=== PATIENT | female | born 1955 | race African-American/Black ===

== ENCOUNTER 2017-01-21 05:47 | Emergency (ER) | payer OTHER ==
--- NOTE | ~2017-01-21 | EKG ---
PATIENT: CECY PETE UNIT #: [id number] Ventricular Rate: 79 BPM Atrial Rate: 79 BPM P-R Interval: 140 ms QRS Duration: 92 ms Q-T Interval: 392 ms QTC Calculation(Bezet): 449 ms P [place]: 57 degrees Calculated R [place]: -36 degrees Calculated T [place]: 105 degrees Diagnosis Line: Normal sinus rhythm Diagnosis Line: Left axis deviation Diagnosis Line: T wave abnormality, consider lateral ischemia Diagnosis Line: Abnormal ECG Diagnosis Line: When compared with ECG of 24-APR-2014 20:48, Diagnosis Line: Criteria for Inferior infarct are no longer Diagnosis Line: Present Diagnosis Line: Confirmed by ANDREEA BORREGO MD ([id number]) on 01/22/2017 Diagnosis Line: 7:04:17 PM INTERPRETING MD: ELMO JEFF
--- NOTE | ~2017-01-21 | CR150 ---
[facility] A Service of [facility] & [facility] RADIOLOGY TEXT RESULTS PATIENT: CECY PETE LOCATION: [facility] : 59 UNIT #: [id number] AGE: [address]: Tino Thomas MD SEX: F ORDER DR: [id number] [facility] [address] [place], [place] [address] [id number] E MR#: [id number] Acc #: [id number] NAME: CECY PETE : 1955 SEX: F STUDY DATE/TIME: 01/21/2017 5:32 UNIT: [facility] ROOM: STUDY DESCRIPTION: CR Hip Min 2 Views Lt Attending Physician: Tino Thomas M.D. Ordering Physician: Tino Thomas M.D. Primary Care Physician: Primary Care Physician No MEDICAL IMAGING REPORT This report is preliminary unless electronic signature is present EXAM Left hip. INDICATIONS Fall 3 days ago with pain. FINDINGS An AP view of the pelvis and an AP and lateral view of the left hip were obtained. No fracture is identified. Bones are normal. IMPRESSION Normal left hip. Dictated by... Moi Barraza M.D. THIS IS AN ELECTRONICALLY VERIFIED REPORT Moi Barraza M.D. at 01/21/2017 1:13 PM Brook TD: 01/21/2017 07:25 JOB #: [id number] MEDICAL IMAGING REPORT Page 1 of 1 COPY
--- NOTE | ~2017-01-21 | CR169 ---
[facility] A Service of [facility] & [facility] RADIOLOGY TEXT RESULTS PATIENT: CECY PETE LOCATION: [place] : 59 UNIT #: [id number] AGE: [address]: Tino Thomas MD SEX: F ORDER DR: [id number] [facility] [address] [place], [place] [address] [id number] E MR#: [id number] Acc #: [id number] NAME: CECY PETE : 1955 SEX: F STUDY DATE/TIME: 01/21/2017 5:30 UNIT: [place] ROOM: STUDY DESCRIPTION: CR Knee 2 Views Lt Attending Physician: Tino Thomas M.D. Ordering Physician: Tino Thomas M.D. Primary Care Physician: Primary Care Physician No MEDICAL IMAGING REPORT This report is preliminary unless electronic signature is present EXAM Left knee HISTORY Left knee pain after falling three days ago. COMPARISON: 06/08/15 FINDINGS AP and lateral vies of the left knee were obtained. There is a transverse fracture through the mid patella and there is a joint effusion present. The bones are normal. IMPRESSION 1. Slightly displaced transverse mid patella fracture. 2. Joint effusion. Dictated by... Moi Barraza M.D. THIS IS AN ELECTRONICALLY VERIFIED REPORT Moi Barraza M.D. at 01/21/2017 1:13 PM ANDRÉS/brandon TD: 01/21/2017 07:24 JOB #: [id number] MEDICAL IMAGING REPORT Page 1 of 1 COPY
[~2017-01-21 05:47] MED LIST: ACCUNEB0.21 MG/ML; ACETAMINOPHEN PO; ADVAIR 250-501 EAC1; ASPIRIN PO; BACTRIM DS TABL1 TAB PO; COLACE PO; DARVOCET-N 1001 TAB PO; DOC-Q-LACE PO; FLEXERIL10 MG PO; INSULIN 70/30 SUBQ; KEFLEX PO; LEVEMIR100 UNITS/ SUBQ; LISINOPRIL PO; LOPRESSOR PO; LORTAB 10/500 T1 TAB PO; LYRICA PO; NEURONTIN PO; NORCO 5/325 TAB1 TAB PO; NORVASC PO; REGLAN PO; REQUIP1 MG PO; SENNA S TABLET1 TAB PO; SYNTHROID PO; SYNTHROID0.05 MG PO; TYLOX 5/500 CAP1 CAP PO; VISTARIL PO; VOLTAREN50 MG PO; XALATAN OP; [UNRECOGNIZED DRUG - OTHER] PO; [UNRECOGNIZED DRUG - OTHER] SUBQ
== END 2017-01-21 07:23 | disposition home or self-care (01) ==
LOC: CED 05:47
DX: S82.032A Displaced transverse fracture of left patella, initial encounter for closed fracture (principal); Z88.6 Allergy status to analgesic agent; Z88.1 Allergy status to other antibiotic agents; Z79.899 Other long term (current) drug therapy; Z79.4 Long term (current) use of insulin; W01.0XXA Fall on same level from slipping, tripping and stumbling without subsequent striking against object, initial encounter; Y92.002 Bathroom of unspecified non-institutional (private) residence as the place of occurrence of the external cause
CPT/HCPCS: 29505; 73502; 73560; 82947; 93005; 96372; 99284; J2270

== ENCOUNTER 2017-01-23 18:25 | Inpatient (IN) | payer OTHER ==
--- NOTE | ~2017-01-23 | HP ---
Unit #: [id number] #: [id number] Patient: [id number] [facility]. [place], [place] [address] [id number] MR#: [id number] NAME: KING FEBRUARY ROOM: 465 Age: 61 Sex: F Admission Date: 01/23/2017 : 1955 Attending Physician: Susan Chavez M.D. Primary Care Physician: No Primary Care Physician HISTORY AND PHYSICAL CHIEF COMPLAINT Dyspnea, acute kidney injury, hyperkalemia. HISTORY OF PRESENT ILLNESS This 61-year-old, type 2 diabetic female with hypertension was transferred from [facility] [place] [facility] department for hyperkalemia and shortness of breath. The patient states that she slipped and fractured her knee four days ago and was seen in this emergency department and was diagnosed with a left slightly displaced transverse mid patellar fracture. She was given a knee brace until the followup with the orthopaedic surgeon, notes shortness of breath over the past three days and went to [facility] [place] [facility] emergency department where labs demonstrate acute versus chronic kidney disease along with hyperkalemia and lisinopril. She was given 15 g of Kayexalate, 40 IV of Lasix, calcium gluconate, sodium bicarb, 10 IV of insulin after an amp of D50. She was also given a DuoNeb. She was given 4 mg of morphine. She was sent to this facility for further workup and treatment. A D-dimer was elevated. Chest x-ray just shows mild cardiomegaly. PAST MEDICAL HISTORY 1. Hypertension. 2. IDDM with neuropathy. 3. History of hypothyroidism in the past. 4. Negative cardiac catheterization 2008. 5. Previous TIA. 6. Fibromyalgia. 7. COPD. 8. Cholecystectomy. 9. . 10. 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 SOCIAL HISTORY The patient lives with her daughter. She smokes about a quarter to a half pack per day. She does not drink alcohol. FAMILY HISTORY Diabetes, CVA, hypertension, CAD. ALLERGIES Ultram and Levaquin. HOME MEDICATIONS Unit #: [id number] #: [id number] Patient: 1. Levemir 20 units subcu q.h.s. 2. Synthroid 0.05 mg daily. 3. Lopressor 100 mg b.i.d. 4. Lisinopril 10 mg b.i.d. REVIEW OF SYSTEMS Somewhat difficult to obtain as the patient is in quite a bit of discomfort and I am having difficulty getting the patient to answer my questions completely. PHYSICAL EXAMINATION GENERAL APPEARANCE: A 61-year-old mildly obese female currently somewhat uncomfortable because of leg pain. VITAL SIGNS: Temperature 98.1. Pulse 88. Respirations 24. Blood pressure 185/85. O2 saturation is 99% on room air. HEENT: Eyes: PERRLA. Extraocular muscles are intact. Mild exophthalmus noted. Pharynx is benign. NECK: Supple without adenopathy or thyromegaly. CHEST: Clear. CARDIAC: Normal S1, S2 without S3, S4 or murmur. ABDOMEN: Bowel sounds are present. No hepatosplenomegaly, tenderness or masses. EXTREMITIES: There is a left knee immobilizer in place. No pedal edema. Pedal pulses are present but diminished. NEUROLOGIC: The patient is awake, alert, oriented. Cranial nerves are intact. Equal strength throughout. DIAGNOSTIC STUDIES LABORATORY: Hematocrit 27.7. Normal MCV, white count and platelet count. INR is one. D-dimer is 460. SMA-12: Glucose 118, BUN 30, creatinine 1.8, CO2 21, albumin 2.9, alkaline phosphatase 105. Lactic acid is normal. BNP is modestly elevated. IMAGING: Chest x-ray: No acute disease. CARDIOVASCULAR: EKG shows a sinus rhythm, rate 78 with somewhat poor R wave progression noted. T wave inversions I and aVL. ASSESSMENT 1. Dyspnea. Rule out PE. 2. Acute versus chronic kidney disease with hyperkalemia and lisinopril. The patient did take one Ibuprofen a few days ago. 3. Normocytic anemia. The patient denies any issues with GI bleeding. 4. Hypertension. 5. Recent left patellar fracture. 6. History of hypothyroidism. 7. Diabetes mellitus. PLAN 1. V/Q scan. One therapeutic dose of Lovenox pending V/Q scan. 2. Obtain urinalysis. 3. IV fluids. 4. Recheck labs. 5. Orthopaedic surgeon to see. 6. Pain control. 7. Obtain TSH. 8. Discontinue lisinopril. 9. Anemia workup. Unit #: [id number] #: [id number] Patient: CECY PETE Dictated by Mariela Fernández M.D. AML/bd TD: 01/24/2017 06:46 JOB #: [id number] HISTORY AND PHYSICAL Page 1 of 1 X Mariela Fernández MD X HISTORY AND PHYSICAL
--- NOTE | ~2017-01-23 | CT57 ---
[facility] A Service of [facility] RADIOLOGY TEXT RESULTS PATIENT: KINGFEBRUARY LOCATION: [facility] 465 : 59 UNIT #: [id number] AGE: [address]: Yuniel Calix MD SEX: F ORDER DR: [id number] [facility] [address] [place], [place] [address] [id number] I MR#: [id number] Acc #: [id number] NAME: KING FEBRUARY : 1955 SEX: F STUDY DATE/TIME: 01/24/2017 18:34 UNIT: [facility] ROOM: [facility] STUDY DESCRIPTION: CT Chest Wo Cont Attending Physician: Lavelle Rose M.D. Ordering Physician: Tommy Cherry M.D. Primary Care Physician: No Primary Care Physician MEDICAL IMAGING REPORT This report is preliminary unless electronic signature is present EXAM CT chest without contrast. INDICATIONS Shortness of air for the past 2 days with hyperkalemia. PROCEDURE Unenhanced CT of the chest. COMPARISON 12/20/2007 TECHNIQUE NOTE: This CT exam was performed with one or more of the following radiation dose reduction techniques: automatic exposure control, adjustment of mA and/or kV according to patient size, and iterative reconstruction. FINDINGS No dense consolidation. There is atelectasis in both lung bases. There is a small area of ground-glass opacity in the right lower lobe, that measures 1.5 cm. No pneumothorax. Prominent bilateral axillary lymph nodes are similar to the previous study. An index right axillary node measures 1.5 cm and is unchanged. No acute findings in the included upper abdomen. No aggressive-appearing bone lesion. IMPRESSION No definite acute findings. No dense consolidation. Bibasilar atelectasis. 1.5 cm area of ground-glass opacity right lower lobe is nonspecific but is new since 2007. It could represent an area of infectious or inflammatory [facility] A Service of [facility] & [facility] RADIOLOGY TEXT RESULTS PATIENT: LOCATION: [facility] : 59 UNIT #: [id number] AGE: [address]: Yuniel Calix MD SEX: F ORDER DR: change. Bilateral prominent axillary lymph nodes are similar to the prior study. Dictated by... Jose Angel Fountain M.D. THIS IS AN ELECTRONICALLY VERIFIED REPORT Jose Angel Fountain M.D. at 01/27/2017 9:45 AM MEGA/kinsey TD: 01/24/2017 21:22 JOB #: [id number] MEDICAL IMAGING REPORT Page 1 of 1 COPY
--- NOTE | ~2017-01-23 | CO ---
Unit #: [id number] #: [id number] Patient: [id number] [address] [place], [place] [address] [id number] I MR#: [id number] NAME: CECY PETE ROOM: 465 Age: 61 Sex: F Admission Date: 01/23/2017 : 1955 Attending Physician: Lavelle Rose M.D. Primary Care Physician: Primary Care Physician No CONSULTATION REPORT REASON FOR CONSULTATION Shortness of breath. HISTORY OF PRESENT ILLNESS This 61-year-old female with past medical history of type 2 diabetes, likely COPD, transferred from [facility] with the complaint of shortness of breath, slipped and fractured her patella and has been complaining of shortness of breath, admitted with impression of possible dyspnea to rule out PE. VQ scan is negative. She has acute kidney injury. I am seeing the patient at bedside. She denies any nausea, vomiting or diarrhea. Mild shortness of breath. Active smoker of one pack per day. Denies alcohol or drug abuse. PAST MEDICAL HISTORY 1. Hypertension. 2. Diabetes mellitus. 3. Hypothyroidism. 4. TIA. 5. Fibromyalgia. 6. COPD. 7. Cholecystectomy. 8. . 9. Ovarian tumor. HOME MEDICATIONS As per DEC and has been reviewed. ALLERGIES 1. Ultram. 2. Levaquin. SOCIAL HISTORY Half to one-pack smoker per day. Denies alcohol or drug abuse. FAMILY HISTORY Diabetes, CVA, hypertension, coronary artery disease. PHYSICAL EXAMINATION VITAL SIGNS: Temperature 98, pulse 67, respirations 12, blood pressure 130/70. NEUROLOGIC: Awake, alert, oriented. No neurologic deficits. HEENT: PERRLA. EOMI. NECK: Supple, no JVD. LUNGS: Bilateral air entry, bilateral mild rhonchi. Unit #: [id number] #: [id number] Patient: KINGFEBRUARY ABDOMEN: Nontender, soft. Positive bowel sounds. EXTREMITIES: No edema. SKIN: No rashes, no ulcers. LYMPHATIC: No lymphadenopathy. DIAGNOSTIC STUDIES LABORATORY: Reviewed. IMAGING: Reviewed. ASSESSMENT AND PLAN 1. Acute exacerbation of chronic obstructive pulmonary disease. 2. Acute bronchitis. 3. Hypertension. 4. Diabetes mellitus. PLAN 1. Start on IV steroids, antibiotics, bronchodilator. 2. Check for flu. 3. Patient will be closely monitored. 4. Please see orders for detailed plan. Thank you very much for this consultation. We will continue to follow along. Dictated by... Page Andrea TD: 01/24/2017 17:13 JOB #: [id number] CONSULTATION REPORT Page 1 of 1 X Tommy Cherry MD X CONSULTATION REPORT
--- NOTE | ~2017-01-23 | CR72 ---
[facility] A Service of [facility] RADIOLOGY TEXT RESULTS PATIENT: LOCATION: [facility] : 59 UNIT #: [id number] AGE: [address]: BRAYAN BENITEZ MD SEX: F ORDER DR: [id number] [address] [address] [id number] I MR#: [id number] Acc #: [id number] NAME: KING FEBRUARY : 1955 SEX: F STUDY DATE/TIME: 01/23/2017 18:39 UNIT: [facility] ROOM: [facility] STUDY DESCRIPTION: CR Chest Single View Portable Attending Physician: Brayan Benitez M.D. Ordering Physician: Nabil Morataya M.D. Primary Care Physician: No Primary Care Physician MEDICAL IMAGING REPORT This report is preliminary unless electronic signature is present. EXAM Portable chest HISTORY Shortness of breath for the past 2 days. COMPARISON 03/26/2016 TECHNIQUE Single AP view of the chest was obtained. FINDINGS Mild cardiomegaly is again seen. Both lungs are clear with normal vascular markings and no pleural fluid is seen. Since the previous examination, no new infiltrates are seen. IMPRESSION No active disease. Mild cardiomegaly. No new infiltrates are seen since previous exam. Dictated by... Dave Edwards M.D. THIS IS AN ELECTRONICALLY VERIFIED REPORT Dave Edwards M.D. at 01/23/2017 10:18 PM RLF/ea TD: 01/23/2017 21:02 [facility] A Service of [facility] RADIOLOGY TEXT RESULTS PATIENT: LOCATION: [facility] : 59 UNIT #: [id number] AGE: [address]: BRAYAN BENITEZ MD SEX: F ORDER DR: GALLO #: [id number] MEDICAL IMAGING REPORT Page 1 of 1
--- NOTE | ~2017-01-23 | DS ---
Unit #: [id number] #: [id number] Patient: KINGFEBRUARY [id number] [facility]. [place], [place] [address] [id number] I MR#: [id number] NAME: CECY PETE ROOM: 465 Age: 61 Sex: F Admission Date: 01/23/2017 : 1955 Discharge Date: 01/28/2017 Attending Physician: Yuniel Calix M.D. Primary Care Physician: Katharine Primary Care Physician DISCHARGE SUMMARY CONSULTANTS Dr. Layton Lilly and Dr. Cherry. ADMITTING DIAGNOSIS 1. Shortness of breath. 2. Hyperkalemia. 3. Nondisplaced left patella fracture. HISTORY OF PRESENTING ILLNESS The patient is a 61-year-old lady with a past medical history of type 2 diabetes, poorly controlled hypertension, who had a recent left patellar nondisplaced fracture and was transferred mainly because of shortness of breath and also having hyperkalemia. HOSPITAL COUR[facility] LENIN inhibitors were stopped for the hyperkalemia. Her potassium was monitored. She was instructed to have low salt diet. For the left patellar fracture, she was seen by orthopedic surgery. Dr. Layton Lilly, recommended for an outpatient followup x-ray in a week after she is discharged and followed with him in the office. For the shortness of breath initially there was a concern for PE. A V/Q scan was done, which was low probability PE. She was treated for COPD exacerbation with steroids. Slowly her steroids are getting tapered. She is doing clinically better. She will be transferred to rehab today. PHYSICAL EXAMINATION ON DAY OF DISCHARGE VITAL SIGNS: Temperature 97.8, pulse rate of 55, respirations 18, blood pressure 155/55. GENERAL: The patient is alert and oriented x3. HEENT: Normocephalic and atraumatic. CHEST: Bilaterally equal. Clear to auscultation. HEART: S1 and S2 regular. ABDOMEN: Soft, nontender. EXTREMITIES: No edema. Left knee in a splint. DISCHARGE MEDICATIONS 1. [place] 10/325 1 tab q.4 p.r.n. for pain. 2. Prednisone tapering dose. 3. Metoprolol 100 mg p.o. twice a day. 4. Colace 100 mg twice a day. 5. Levemir 20 units at bedtime. 6. Synthroid 40 mg p.o. daily. Unit #: [id number] #: [id number] Patient: FEBRUARY 09. Norvasc 5 mg p.o. daily. DISCHARGE INSTRUCTIONS She has been instructed to follow with her primary care and with orthopedic surgery in one to two weeks. Total time spent in her discharge is 35 minutes. Dictated by... Page Majano TD: 01/28/2017 12:11 JOB #: [id number] DISCHARGE SUMMARY Page 1 of 1 X X DISCHARGE SUMMARY
--- NOTE | ~2017-01-23 | CO ---
Unit #: [id number] #: [id number] Patient: KINGFEBRUARY [id number] [facility] [address]. [place], [place] [address] [id number] I MR#: [id number] NAME: CECY PETE ROOM: 465 Age: 61 Sex: F Admission Date: 01/23/2017 : 1955 Attending Physician: Lavelle Rose M.D. Consultation Date: 01/24/2017 CONSULTATION REPORT CHIEF COMPLAINT Left knee pain. HISTORY OF PRESENT ILLNESS Ms. Pete is a 61-year-old female with a history of left knee injury after a ground level fall on this past Friday 6 days prior to current presentation. She was initially seen at [facility] on 01/21/2017, where she was diagnosed with a transverse patellar fracture. She has now returned from [facility] with dyspnea. She has been diagnosed with acute kidney injury and hyperkalemia. She has been admitted for correction of the above noted issues. Orthopedic consultation has been requested regarding her patellar fracture. She states that she is unable to bear weight on the affected extremity. She has been in a knee immobilizer and has been avoiding any range of motion. Her history is limited. She seems to have difficulty fully and completing answering questions. Currently, she is resting comfortably in bed, but complains of pain when awoken. She states the pain is worse with any attempted motion or movement of the leg as well as any, even to light touch. It is relieved with narcotic pain medication. PAST MEDICAL HISTORY Hypertension, diabetes mellitus with neuropathy, hypothyroidism, history of TIA, fibromyalgia, COPD. PAST SURGICAL HISTORY Cholecystectomy, , removal of unspecified ovarian mass. MEDICATIONS Home medications include Levemir, Synthroid, Lopressor, lisinopril. ALLERGIES Ultram and Levaquin. SOCIAL HISTORY The patient lives with her daughter. She smokes approximately half pack of cigarettes daily. She denies any alcohol use. She is not working. FAMILY HISTORY Diabetes, CVA, hypertension, coronary artery disease. REVIEW OF SYSTEMS Unit #: [id number] #: [id number] Patient: KINGFEBRUARY Ten systems are reviewed and negative except with regard to shortness of breath as noted in HPI as well as musculoskeletal complaints. PHYSICAL EXAMINATION GENERAL: A 61-year-old female sleeping, but complaining of pain, somewhat uncomfortable appearing when awake. HEENT: Normocephalic and atraumatic cranium. Pupils equally round and reactive to light. NECK: Supple. No lymphadenopathy. No JVD. CARDIAC: Regular rate and rhythm. PULMONARY: No increased work of breathing, symmetric chest rise. ABDOMEN: Nondistended. NEUROLOGIC: Decreased peripheral nerve sensation consistent with known diabetic neuropathy. She has intact motor function, L4 through S1 in the bilateral lower extremities. VASCULAR: Her feet are warm and well perfused. SKIN: There are no overlying skin changes, ecchymosis, or evidence of open fracture or laceration. LYMPHATICS: No evidence of lymphedema or lymphadenopathy. MUSCULOSKELETAL: She is in a knee immobilizer to the left lower extremity. She has tenderness with any palpation over the affected area. She resists any attempted range of motion. DIAGNOSTIC STUDIES IMAGING STUDIES: Plain film radiographs from 01/21/2017 reviewed. These demonstrate a nondisplaced transverse fracture of left patella. V/Q scan is pending. IMPRESSION This is a 61-year-old female with a left nondisplaced transverse patellar fracture. Additionally, she has an elevated D-dimer, and complains of dyspnea. PLAN V/Q scan is pending. We will follow up the results of the scan to evaluate for possibility of pulmonary embolus as she is in a knee immobilizer. Currently, she still may be up as tolerated and weightbearing as tolerated on the affected extremity with physical therapy. She may be out of the knee immobilizer daily for bathing. We will hold off on initiating range of motion at this time given her pain on exam. She should follow up in approximately 1 week post discharge for repeat x-rays of the left patellar fracture. Dictated by... Layton Lilly M.D. NORAH/anton TD: 01/24/2017 08:28 JOB #: [id number] Unit #: [id number] #: [id number] Patient: KINGFEBRUARY CONSULTATION REPORT Page 1 of 1 X Layton Lilly MD CONSULTATION REPORT
--- NOTE | ~2017-01-23 | EKG ---
PATIENT: CECY PETE UNIT #: [id number] Ventricular Rate: 78 BPM Atrial Rate: 78 BPM P-R Interval: 126 ms QRS Duration: 92 ms Q-T Interval: 382 ms QTC Calculation(Bezet): 435 ms P [place]: 55 degrees Calculated R [place]: -33 degrees Calculated T [place]: 99 degrees Diagnosis Line: Normal sinus rhythm Diagnosis Line: Left axis deviation Diagnosis Line: Poor R wave progression questionable lead position Diagnosis Line: or body habitus T wave abnormality, consider Diagnosis Line: lateral ischemia Diagnosis Line: Abnormal ECG Diagnosis Line: When compared with ECG of 21-JAN-2017 04:47, Diagnosis Line: No significant change was found Diagnosis Line: Confirmed by SAURABH MORENO MD ([id number]) on 01/30/2017 Diagnosis Line: 11:53:54 AM INTERPRETING MD: TIFFANIE JEFF
--- NOTE | ~2017-01-23 | NM69 ---
[facility] A Service of [facility] & [facility] RADIOLOGY TEXT RESULTS PATIENT: KINGFEBRUARY LOCATION: [facility] 465-01 : 59 UNIT #: [id number] AGE: [address]: Yuniel Calix MD SEX: F ORDER DR: [id number] [facility] [address] [place], [place] [address] [id number] I MR#: [id number] Acc #: [id number] NAME: KING FEBRUARY : 1955 SEX: F STUDY DATE/TIME: 01/24/2017 10:40 UNIT: [facility] ROOM: [facility] STUDY DESCRIPTION: NM Pulm Vent and Perf Attending Physician: Lavelle Rose M.D. Ordering Physician: Tino Thomas M.D. Primary Care Physician: Primary Care Physician No MEDICAL IMAGING REPORT This report is preliminary unless electronic signature is present EXAM VQ scan 01/24 INDICATIONS Shortness of air with bilateral leg and feet swelling with dizziness and fatigue and chest pain for several months. History of COPD. FINDINGS Ventilation images were obtained after the administration of 33.4 mCi of technetium 99m - DTPA aerosol. Corresponding perfusion images were obtained after the IV administration of 5.7 mCi of technetium 99m - MAA. Comparison is made with chest x-ray from 01/23/2017 at 1839 hours. Comparison also made with VQ scan from 03/26/2016. Ventilation and perfusion tracer deposition in the lungs is somewhat heterogeneous, but no VQ mismatches are seen. There are no segmental perfusion defects. Study is low probability for pulmonary embolism. IMPRESSION Low probability for pulmonary embolism. Dictated by... Dave Santoyo Jr., M.D. THIS IS AN ELECTRONICALLY VERIFIED REPORT Dave Santoyo Jr., M.D. at 01/24/2017 4:48 PM SUMAN/adal TD: 01/24/2017 13:12 JOB #: [id number] MEDICAL IMAGING REPORT Page 1 of 1 COPY
[2017-01-23 18:10] LABS: BASOPHIL# 0.1 X10e3 (0-0.3); BASOPHIL% 0.8 % (0-2.5); EOSINOPHIL# 0.1 X10e3 (0-0.7); EOSINOPHIL% 1.3 % (0.0-7.0); HEMATOCRIT 27.7 % (35.0-45.0); HEMOGLOBIN 8.6 gm/dL (12.0-16.0); LYMPHOCYTE# 2.2 X10e3 (1.0-3.5); LYMPHOCYTE% 26.4 % (17.0-45.0); MEAN CELL VOLUME 84.3 FL (83-96); MEAN CORPUSCULAR HEMOGLOBIN 26.1 PG (28-34); MEAN PLATELET VOLUME 7.8 FL (6.5-11.5); MONOCYTE# 0.5 X10e3 (0-1.0); MONOCYTE% 6.2 % (3.0-12.0); NEUTROPHIL# 5.4 X10e3 (1.5-7.1); NEUTROPHIL% 65.3 % (40-75); PLATELET COUNT 257 X10e3 (140-420); RED BLOOD COUNT 3.28 X10e (3.90-5.30); RED CELL DISTRIBUTION WIDTH 17.2 % (11.0-15.5); WHITE BLOOD COUNT 8.2 X10e3 (4.0-10.5)
[2017-01-23 18:11] LABS: DIFF IND NO
[2017-01-23 18:20] LABS: PROTHROMBIN TIME (PATIENT) 11.1 SECONDS (9.5-12.4)
[2017-01-23 18:38] LABS: ALBUMIN SERUM 2.9 g/dL (3.5-5.0); ALKALINE PHOSPHATASE 105 U/L (32-92); ALT (SGPT) 8 U/L (10-40); AST (SGOT) 10 U/L (10-42); BILIRUBIN,TOTAL 0.1 mg/dL (0.2-2.0); BLOOD UREA NITROGEN 32 mg/dL (9-23); BUN/CREATININE RATIO 16.84; CALCIUM SERUM 8.6 mg/dL (8.4-10.2); CARBON DIOXIDE 21 mmol/L (22-31); CHLORIDE 110 mmol/L (100-111); CREATININE SERUM 1.9 mg/dL (0.6-1.4); GLOM FILT RATE Estimated 32.9 mL/min (>60); GLUCOSE FASTING 183 mg/dL (70-110); PROTEIN TOTAL SERUM 8.5 g/dL (6.0-8.3); SODIUM 137 mmol/L (135-145)
[2017-01-23 18:41] LABS: BILIRUBIN, DIRECT <0.1 mg/dL (0.0-0.2)
[2017-01-23 18:43] LABS: POTASSIUM 6.2 mmol/L (3.5-5.1)
[2017-01-23] MEDS ORDERED: SYNTHROID0.05 MG PO (22:51)
[2017-01-23] MEDS ORDERED: LOPRESSOR PO (22:52)
[2017-01-23] MEDS ORDERED: ZESTRIL10 M1 PO (22:53)
[2017-01-23 23:31] LABS: BUN/CREATININE RATIO 16.66; CALCIUM SERUM 8.9 mg/dL (8.4-10.2); CREATININE SERUM 1.8 mg/dL (0.6-1.4); GLOM FILT RATE Estimated 35.1 mL/min (>60)
[2017-01-24 06:52] LABS: URINE APPEARANCE CLEAR; URINE BILIRUBIN NEG (NEG); URINE BLOOD TRACE (NEG); URINE COLOR YELLOW; URINE GLUCOSE NEG (NEG); URINE KETONE NEG (NEG); URINE LEUKOCYTE ESTERASE NEG (NEG); URINE NITRATE NEG (NEG); URINE PROTEIN 2+ (NEG); URINE SPECIFIC GRAVITY 1.009 (1.003-1.035); URINE UROBILINOGEN 0.2 MG/DL (NEG)
[2017-01-24 06:55] LABS: URBCS1 AUWI 0-2 /[HPF] (0-2); URINE BACTERIA AUWI NEG (NEGATIVE); URINE SQUAMOUS EPITHELIAL CELL NONE SEEN /[HPF]; UWBCS1 AUWI 0-2 (0-5)
[2017-01-24 07:19] LABS: BASOPHIL# 0.1 X10e3 (0-0.3); BASOPHIL% 1.6 % (0-2.5); EOSINOPHIL# 0.1 X10e3 (0-0.7); EOSINOPHIL% 1.2 % (0.0-7.0); HEMOGLOBIN 8.4 gm/dL (12.0-16.0); LYMPHOCYTE# 2.5 X10e3 (1.0-3.5); LYMPHOCYTE% 30.6 % (17.0-45.0); MEAN CELL VOLUME 83.2 FL (83-96); MEAN CORPUSCULAR HEMOGLOBIN 25.9 PG (28-34); MEAN CORPUSCULAR HGB CONC 31.2 g/dL (30-36); MONOCYTE# 0.5 X10e3 (0-1.0); NEUTROPHIL# 4.9 X10e3 (1.5-7.1); NEUTROPHIL% 60.6 % (40-75); PLATELET COUNT 259 X10e3 (140-420); RED BLOOD COUNT 3.25 X10e (3.90-5.30); RED CELL DISTRIBUTION WIDTH 17.2 % (11.0-15.5); WHITE BLOOD COUNT 8.1 X10e3 (4.0-10.5)
[2017-01-24 07:21] LABS: DIFF IND NO
[2017-01-24 07:33] LABS: PARTIAL THROMBOPLASTIN TIME 31.3 SECONDS (23.5-31.3); PROTHROMBIN TIME (PATIENT) 10.4 SECONDS (9.6-11.5)
[2017-01-24 07:57] LABS: BUN/CREATININE RATIO 17.5; CALCIUM SERUM 8.4 mg/dL (8.4-10.2); CREATININE SERUM 1.6 mg/dL (0.6-1.4); GLOM FILT RATE Estimated 40.5 mL/min (>60); POTASSIUM 5.3 mmol/L (3.5-5.1)
[2017-01-24 08:17] LABS: FERRITIN 70 ng/mL (11-307)
[2017-01-25 03:47] LABS: BASOPHIL% 0.6 % (0-2.5); DIFF IND NO; EOSINOPHIL% 0.3 % (0.0-7.0); HEMATOCRIT 27.1 % (35.0-45.0); HEMOGLOBIN 8.3 gm/dL (12.0-16.0); LYMPHOCYTE# 0.8 X10e3 (1.0-3.5); LYMPHOCYTE% 13.2 % (17.0-45.0); MEAN CELL VOLUME 82.8 FL (83-96); MEAN CORPUSCULAR HEMOGLOBIN 25.4 PG (28-34); MEAN CORPUSCULAR HGB CONC 30.7 g/dL (30-36); MEAN PLATELET VOLUME 8.6 FL (6.5-11.5); MONOCYTE# 0.1 X10e3 (0-1.0); MONOCYTE% 1.8 % (3.0-12.0); NEUTROPHIL# 5.1 X10e3 (1.5-7.1); NEUTROPHIL% 84.1 % (40-75); PLATELET COUNT 257 X10e3 (140-420); RED BLOOD COUNT 3.27 X10e (3.90-5.30); RED CELL DISTRIBUTION WIDTH 17.2 % (11.0-15.5)
[2017-01-25 04:11] LABS: BUN/CREATININE RATIO 15.62; CALCIUM SERUM 7.9 mg/dL (8.4-10.2); CREATININE SERUM 1.6 mg/dL (0.6-1.4); GLOM FILT RATE Estimated 40.5 mL/min (>60); POTASSIUM 4.8 mmol/L (3.5-5.1)
[2017-01-25 04:38] LABS: INFLUENZA A NEG (NEG); INFLUENZA B NEG (NEG)
[2017-01-26 03:31] LABS: BASOPHIL% 0.5 % (0-2.5); DIFF IND YES; HEMOGLOBIN 7.5 gm/dL (12.0-16.0); LYMPHOCYTE# 0.8 X10e3 (1.0-3.5); LYMPHOCYTE% 13.8 % (17.0-45.0); MEAN CELL VOLUME 82.9 FL (83-96); MEAN CORPUSCULAR HEMOGLOBIN 25.9 PG (28-34); MEAN CORPUSCULAR HGB CONC 31.2 g/dL (30-36); MEAN PLATELET VOLUME 7.5 FL (6.5-11.5); MONOCYTE# 0.2 X10e3 (0-1.0); MONOCYTE% 2.8 % (3.0-12.0); NEUTROPHIL% 82.9 % (40-75); PLATELET COUNT 231 X10e3 (140-420); WHITE BLOOD COUNT 6.1 X10e3 (4.0-10.5)
[2017-01-26 03:51] LABS: BUN/CREATININE RATIO 22.35; CALCIUM SERUM 8.1 mg/dL (8.4-10.2); CREATININE SERUM 1.7 mg/dL (0.6-1.4); GLOM FILT RATE Estimated 37.6 mL/min (>60); POTASSIUM 4.5 mmol/L (3.5-5.1)
[2017-01-26 03:54] LABS: ANISOCYTOSIS MOD; HYPOCHROMIA SL; PLATELET ESTIMATE NORMAL (NORMAL)
[2017-01-26 03:55] LABS: TARGET CELLS SL
[2017-01-28 03:41] LABS: HEMATOCRIT 25.6 % (35.0-45.0); HEMOGLOBIN 7.9 gm/dL (12.0-16.0); MEAN CELL VOLUME 83.8 FL (83-96); MEAN CORPUSCULAR HEMOGLOBIN 25.9 PG (28-34); MEAN CORPUSCULAR HGB CONC 30.9 g/dL (30-36); MEAN PLATELET VOLUME 8.1 FL (6.5-11.5); RED BLOOD COUNT 3.06 X10e (3.90-5.30); RED CELL DISTRIBUTION WIDTH 17.3 % (11.0-15.5); WHITE BLOOD COUNT 5.7 X10e3 (4.0-10.5)
[2017-01-28 04:00] LABS: CALCIUM SERUM 8.4 mg/dL (8.4-10.2); CREATININE SERUM 1.7 mg/dL (0.6-1.4); GLOM FILT RATE Estimated 37.6 mL/min (>60)
[2017-01-28 04:04] LABS: POTASSIUM 5.5 mmol/L (3.5-5.1)
[2017-01-28 11:20] LABS: BUN/CREATININE RATIO 32.94; CALCIUM SERUM 8.2 mg/dL (8.4-10.2); CREATININE SERUM 1.7 mg/dL (0.6-1.4); GLOM FILT RATE Estimated 37.6 mL/min (>60); POTASSIUM 4.8 mmol/L (3.5-5.1)
== END 2017-01-28 15:50 | DRG 191 ==
LOC: SED 18:25 → C4C 01-24 00:05
PROVIDERS: Emergency Medicine; Family Medicine; Internal Medicine
DX: J44.0 Chronic obstructive pulmonary disease with (acute) lower respiratory infection (principal); N17.9 Acute kidney failure, unspecified; E11.40 Type 2 diabetes mellitus with diabetic neuropathy, unspecified; E87.5 Hyperkalemia; Z79.4 Long term (current) use of insulin; I10 Essential (primary) hypertension; Z86.73 Personal history of transient ischemic attack (TIA), and cerebral infarction without residual deficits; M79.7 Fibromyalgia; Z90.49 Acquired absence of other specified parts of digestive tract; F17.210 Nicotine dependence, cigarettes, uncomplicated; D64.9 Anemia, unspecified; E03.9 Hypothyroidism, unspecified; S82.035D Nondisplaced transverse fracture of left patella, subsequent encounter for closed fracture with routine healing; J44.1 Chronic obstructive pulmonary disease with (acute) exacerbation; J20.9 Acute bronchitis, unspecified
CPT/HCPCS: 36415; 71010; 71250; 78582; 80048; 80076; 81003; 82550; 82607; 82728; 82947; 83605; 83880; 84443; 84484; 85025; 85027; 85379; 85610; 85730; 87040; 87205; 87804; 93005; 94640; 94760; 97110; 97116; 97162; 97530; 99291; A9540; A9567; J0360; J0610; J1650; J1940; J2270; J2920

== ENCOUNTER 2017-02-15 17:51 | Inpatient (IN) | payer OTHER ==
--- NOTE | ~2017-02-15 | A ---
[facility] Nutrition Therapy DATE: 02/17/17 Patient: CECY PETE Physician: ROBEL Address: [address] [place] [address] Room/Bed: [address], Zip: [place] [address] Admit Date: 02/15/17 Date of : 59 Height: 5 4 Weight: 200 91 NUTRITIONAL ASSESSMENT: REASON: Enteral nutrition recommendations, NPO/ ventilation status in ICU 61 yo female admitted for cardiac arrest, PNA PMH: HTN, DM, neuropathy, hypothyroid, COPD, previous TIA, cholecystectomy Anthropometrics: Ht: 64" Wt: 87.5 kg BMI: 33.1 IBW: 54.5 kg Labs: Cl- 113 Gluc 271 BUN 33 Creat 1.8 Ca++ 7.9 Alb 2.3 Accuchecks 274 GFR 35.1 BNP 503 Meds: Propofol @ 21.6 ml/hr, novolog, NaCl, fentanyl, zofran, solu-medrol, lopressor, bumex, colace, synthroid- PO (to be switched to NG or DHT), laxative of choice, levemir, protonix I/O & Bowel function: 5852/3040, last BM unknown Skin Integrity: Scattered scars/ discoloration breast/ chest/ BLE Edema: BLE 2+ BL feet and ankles- pitting Estimated Nutrition Needs: 6855-8477 kcals (15-20 kcals/kg ABW) 82-109 grams protein (1.5-2.0 grams/kg IBW) Assessment: Chart reviewed, events noted. Pt is intubated and sedated in the ICU. Propofol is providing an additional 570 kcals from lipids at this time. MD requested enteral nutrition recommendations. Pt currently has an NG to LWS, with minimal output per RN report. Of note, synthroid will be changed to NG or DHT (if DHT placed instead of NG). No family in room to provide nutritional history. Please see recommendations below. Dx: Inadequate protein-energy intake RT clinical condition, ventilator dependence AEB NPO status. Interventions: 1. Enteral nutrition- recs below Monitoring, Evaluation and Goals 1. Enteral nutrition; initiate, provide >80% goal volume x 24 hrs 2. Weight; prevent unintentional weight loss, promote gradual weight loss once medically [facility] Nutrition Therapy DATE: 02/17/17 Patient: CECY PETE Physician: ROBEL Address: [address] [place] [address] Room/Bed: [address], Zip: [place] [address] Admit Date: 02/15/17 Date of : [birth year] Height: 5 4 Weight: 200 91 feasible 3. Improve labs; glucose, BUN, creat, GFR Recommendations: 1. Once medically feasible, initiate enteral nutrition with Glucerna 1.5 @ 15 mL/hr x 22 hrs. Increase by 10 mL q 6 hrs as tolerated to indicated goal below: PLEASE NOTE ENTERAL NUTRITION CALCULATED TO RUN FOR 22 HRS TO ACCOUNT FOR HOLDING FOR ONE HOUR BEFORE AND ONE HOUR AFTER ADMINISTRATION OF SYNTHROID WHILE THE PT IS RECEIVING PROPOFL: -Increase Glucerna 1.5 to 30 mL/hr + 30 mL Prostat BID x 22 hrs to provide: 1760 kcals/ 84 grams protein/ 501 mL free H20 WHEN PROPOFOL IS DISCONTINUED: -Increase Glucerna 1.5 to 50 mL/hr x 22 hrs to provide: 1650 kcals/ 91 grams protein/ 835 mL free H20 2. If the pt is extubated, recommend J[employer]LECT[employer] evaluation to determine if the pt can safely tolerate PO intake. Pt is at moderate-severe nutritional risk. Respectfully, SAY SCALES RD, LD [employer] and Nutrition[facility] Services [facility] cc: client file
--- NOTE | ~2017-02-15 | DS ---
Unit #: [id number] #: [id number] Patient: KINGFEBRUARY [id number] [address] [address] [id number] I MR#: [id number] NAME: CECY MCKEON ROOM: 328 Age: 61 Sex: F Admission Date: 02/15/2017 : 1955 Discharge Date: 02/22/2017 Attending Physician: Sydnee Martinez M.D. Primary Care Physician: No Primary Care Physician DISCHARGE SUMMARY PRINCIPAL DIAGNOSES 1. Acute on chronic hypercapnic/hypoxic respiratory failure, now maintained on 2 L of oxygen per nasal cannula on a p.r.n. basis. 2. Status post respiratory arrest requiring mechanical ventilation. 3. Acute diastolic congestive heart failure, ejection fraction 70%. 4. Acute kidney injury on chronic kidney disease stage 3, baseline creatinine of approximately 1.8, discharge creatinine of 2.0. 5. Aspiration pneumonia. 6. Acute on chronic iron deficiency anemia, status post transfusion of two units of packed red blood cells. 7. Acute exacerbation of chronic obstructive pulmonary disease. 8. Diabetes mellitus type 2, uncontrolled: Hemoglobin A1c of 7.0 but this is artificially low secondary to her iron deficiency. 9. Mild aortic regurgitation. 10. Mild to moderate tricuspid regurgitation. 11. Recent left patellar fracture. 12. Obesity. 13. Moderate protein malnutrition. CONSULTANTS 1. Dr. Cherry - Pulmonology. 2. Dr. Sierra - Cardiology. 3. Dr. Perez - Orthopedic Surgery. PROCEDURES 1. Bronchoscopy on February 16, 2017, with thick mucoid secretions in both lungs. No evidence of mass. 2. CTA of the chest, abdomen and pelvis on February 15, 2017, with normal caliber thoracic and abdominal aorta. No evidence of PE. Small right pleural effusion and left pleural effusion noted. Atelectasis in the posterior left lower lobes and bilateral emphysema noted. 3. CT of the head without contrast on February 15, 2017 which was normal. 4. Multiple followup chest x-rays demonstrating differing degrees of pulmonary edema. CLINICAL HISTORY/HOSPITAL COURSE Ms. Mckeon is a 61-year-old -[place]ron[place] female recently discharged to rehab after presenting here with a left patellar fracture. The patient went home to celebrate a family event and subsequently developed increasing respiratory distress. She subsequently developed PEA secondary to respiratory distress, was intubated and admitted to the ICU. Dr. Cherry was consulted and he continued ventilator management. The patient underwent bronchoscopy as noted. It is felt she also has some Unit #: [id number] #: [id number] Patient: CECY MCKEON underlying aspiration pneumonia and she was placed on appropriate IV antibiotics. The patient, fortunately over the next several days, underwent diuresis for congestive heart failure as outlined below and was subsequently extubated. She was transferred to the floor. She has been transitioned to oral antibiotics in regards to oral aspiration pneumonia and will complete treatment as noted. She has been placed on IV steroids due to associated COPD exacerbation but these have also been tapered to oral meds and she will complete as outpatient. She is currently today off oxygen but will intermittently require oxygen at 2 to 3 L. She has oxygen at home and can continue this at home. Cardiology was consulted in regards to her cardiopulmonary arrest. Two dimensional echocardiogram was done revealing ejection fraction of 70%. She also had elevated right ventricular systolic pressure of 39 mmHg consistent with mild pulmonary hypertension. She was diuresed due to some pulmonary edema and will be sent home on a low dose of Lasix. This will have to be monitored closely given her underlying kidney failure. The patient did develop some acute kidney injury, likely secondary to diuresis during hospitalization. Her renal function was monitored on day of discharge. Creatinine is now down to 2.0. This is very near her baseline and, given her respiratory status, I think it is safe to restart diuresis with close monitoring of patient's creatinine. The patient is significantly weak. As noted above, she had been at rehab and left essentially on a day pass. She is adamantly refusing to return to rehab despite several discussions by myself with her. She is going to be discharged home with home health though I think her risk for readmission within the 30 day window is very high. The patient also has significant hyperglycemia, particularly while on steroids. She was maintained on insulin therapy during hospitalization but I am not sure if this can be (1) at home. I will place her on a low dose of glipizide and sugars will be monitored as an outpatient. DISCHARGE CONDITION Stable. DISCHARGE STATUS Discharge to home with home health for physical and occupational therapy. DISCHARGE MEDICATIONS 1. Percocet 10/325, one tablet p.o. q.6 hours p.r.n. for pain, number given 30. 2. Glipizide 5 mg daily. 3. Omnicef 300 mg p.o. b.i.d. for three days. 4. Prednisone 10 mg tablets, three tablets for three days, two tablets for three days, one tablet for three days then discontinue. 5. Lasix 40 mg daily. 6. Norvasc 10 mg daily. 7. Metoprolol tartrate 50 mg b.i.d. 8. Hydralazine 100 mg p.o. t.i.d. 9. Imdur dinitrate 40 mg p.o. b.i.d. 10. Oxygen at 2-3 L per nasal cannula p.r.n. 11. Ferrous sulfate 325 mg daily. DISCHARGE INSTRUCTIONS Unit #: [id number] #: [id number] Patient: CECY MCKEON The patient was instructed to follow an 1800 mL fluid restricted diet. She should obtain Accu-Cheks a.c. and h.s. at home. She can increase her activity as tolerated under the care of physical and occupational therapy. She is weight bearing as tolerated on the left lower extremity. FOLLOWUP The patient will follow up with her primary care provider in one week. She will follow up with Dr. Perez of orthopedics in approximately two weeks. The patient will follow up with Dr. Sierra on April 11, 2017, at 11:30 a.m. The patient will follow up with Dr. Cherry in two weeks. Time spent on discharge - 37 minutes. Dictated by... Sydnee Martinez M.D. Ricky/tsering TD: 02/24/2017 06:58 JOB #: [id number] DISCHARGE SUMMARY Page 1 of 1 X Sydnee Martinez MD X DISCHARGE SUMMARY
--- NOTE | ~2017-02-15 | CT14 ---
[facility] A Service of [facility] RADIOLOGY TEXT RESULTS PATIENT: CECY PETE LOCATION: [address] : [birth year] UNIT #: [id number] AGE: [address]: Lisa Charles MD SEX: F ORDER DR: [id number] [facility] [address] [place], [place] [address] [id number] I MR#: [id number] Acc #: [id number] NAME: CECY PETE : 1955 SEX: F STUDY DATE/TIME: 02/15/2017 18:48 UNIT: [facility] ROOM: [facility] STUDY DESCRIPTION: CT Angio Abdomen and Pelvis Attending Physician: Lisa Charles M.D. Ordering Physician: Dave Argueta M.D. Primary Care Physician: Primary Care Physician No MEDICAL IMAGING REPORT This report is preliminary unless electronic signature is present EXAM CT angiogram chest, abdomen and pelvis with IV contrast HISTORY Cardiac arrest today. Shortness of air. TECHNIQUE IV contrast and CT angiogram of the chest, abdomen and pelvis was performed with 3-D reconstructions. This CT exam was performed with one or more of the following radiation dose reduction techniques: automatic exposure control, adjustment of mA and/or kV according to patient size, and iterative reconstruction. FINDINGS CT angiogram chest: Normal caliber thoracic aorta. No pulmonary emboli are identified. Small right pleural effusion and minimal left pleural effusion. Mild atelectasis in the posterior upper lobes bilaterally and in the bilateral posterior lower lobes. Mild bilateral emphysema. Partly calcified mildly prominent mid-right hilar node and small calcified additional mediastinal and right hilar nodes. CT abdomen: Normal caliber abdominal aorta. The celiac and superior mesenteric arteries and bilateral renal arteries and inferior mesenteric artery are patent. Cholecystectomy. The liver, spleen, pancreas, and left adrenal gland are unremarkable. Probable right adrenal adenoma, corresponding to a similar findings on CT chest 02/20/2009. Small umbilical hernia containing fat. CT pelvis [facility] A Service of [facility] RADIOLOGY TEXT RESULTS PATIENT: LOCATION: [facility] CICCU3-20 : 59 UNIT #: [id number] AGE: [address]: Lisa Charles MD SEX: F ORDER DR: Normal caliber common iliac and internal and external iliac arteries bilaterally. The uterus and adnexa are unremarkable. Albarado catheter in the bladder. The bladder is decompressed. Mildly prominent bilateral groin nodes could be reactive or inflammatory. IMPRESSION 1. Normal caliber thoracic and abdominal aorta. No aneurysm or dissection. 2. No pulmonary embolus is identified. 3. Small right pleural effusion and minimal left pleural effusion. There is also mild atelectasis in the posterior lower lobes, greater on the right. 4. Mild bilateral emphysema. 5. Right adrenal adenoma. Dictated by... Desean Hall M.D. THIS IS AN ELECTRONICALLY VERIFIED REPORT Desean Hall M.D. at 02/16/2017 2:41 PM DFL/alvarado TD: 02/16/2017 10:30 JOB #: [id number] MEDICAL IMAGING REPORT Page 1 of 1 COPY
--- NOTE | ~2017-02-15 | CO ---
Unit #: [id number] #: [id number] Patient: KINGFEBRUARY [id number] [id number] [facility]. [place], [place] [address] [id number] I MR#: [id number] NAME: CECY MCKEON ROOM: [facility]IC[facility]3 Age: 61 Sex: F Admission Date: 02/15/2017 : 1955 Attending Physician: Sydnee Martinez M.D. Consultation Date: 02/16/2017 CONSULTATION REPORT REASON FOR CONSULTATION Status post cardiopulmonary arrest. HISTORY OF PRESENT ILLNESS This is a 61-year-old female with a history of having normal coronaries back on a cath in 2008, has COPD, obstructive sleep apnea, hypothyroidism, diabetes, hypertension, fibromyalgia, recently had a left patellar fracture, and continues to smoke, who came to the emergency room by EMS after she called them to her home for her worsening shortness of breath. According to information, the patient is sedated and intubated and most information is provided from the chart, information obtained by the family, and the staff. The patient was just discharged from this facility on 01/28/2017 and went to rehab. She was given a pass from rehab over the weekend and was visiting her family and had sudden onset of shortness of breath, EMS was called. They found her to be hypoxic, her O2 saturations were in the 70s, she was brought to the emergency room. It was reported that during transport, she became apneic and lost her pulse, CPR was started and it was reported for about 30 minutes and then during that time she was intubated. She regained her pulse and she was intubated in the ER. On arrival to the emergency room, her blood pressure was found to be 244/177, currently she is on the vent and intubated. There was no mention from the family to the staff that she had any complaints of chest pain, palpitations, or dizziness. It was just mostly her shortness of breath. She was having frequent cough, but no fever or chills reported. In the emergency room, as mentioned her blood pressure was as high as 244/117, her heart rate was 84, respirations 16, she is afebrile, she was immediately intubated, and O2 saturations was 100%. Her initial labs; her creatinine was 2.0, her potassium was initially 6.0, her lactic acid 2.3, hemoglobin 7.2, WBCs 9.4. Her urine tox screen was positive for marijuana and opiates. Per her urinalysis may have a UTI. Initial cardiac enzymes have been negative. Her EKG shows normal sinus rhythm. She does have peaked T waves. The patient was started on a Cardene drip for her hypertension. She was also given sedation for being on the ventilator. Cardiology has been consulted to assist with evaluation and management. PAST MEDICAL HISTORY 1. In 2008 had a cardiac cath that revealed LVEF 60%, normal coronaries. 2. Hypertension. 3. Diabetes mellitus, type 2. 4. Hypothyroidism. 5. COPD, obstructive sleep apnea. Unit #: [id number] #: [id number] Patient: 6. Fibromyalgia, neuropathy. 7. History of TIA versus CVA about 10 years ago. 8. Recent left patella nondisplaced fracture, has been in rehab. 9. Nicotine abuse. PAST SURGICAL HISTORY 1. In 2008 had a cardiac cath, which revealed normal coronaries. 2. Cholecystectomy. 3. section. 4. Tumor removed from her ovaries. HOME MEDICATIONS Gabapentin 300 mg p.o. t.i.d., metoprolol 25 mg p.o. b.i.d., isosorbide 10 mg p.o. b.i.d., hydrochlorothiazide 25 mg p.o. daily, ferrous sulfate 325 mg p.o. daily, Phenergan 25 mg p.o. every 6 hours p.r.n., Cozaar 100 mg p.o. at bedtime, Indocin 5/25 one tablet p.o. every 4 hours p.r.n. ALLERGIES 1. Tramadol. 2. Levofloxacin. SOCIAL HISTORY The patient before rehab had been living with her daughter at home. She continues to smoke quarter to half a pack a day. No alcohol. She has tested positive for marijuana and opiates on her screening. REVIEW OF SYSTEMS See details in HPI. PHYSICAL EXAMINATION GENERAL: Ms. Mckeon is a 61-year-old female, in no acute respiratory distress. She is on Cardene. VITAL SIGNS: Her blood pressure currently was 163/54, heart rate 96, respirations 18, temperature 97.2, O2 saturation was 100% on the ventilator. NECK: Trachea midline. No thyromegaly or lymphadenopathy. Normal carotid upstrokes. No jugular venous distention. HEART: S1, S2. Regular rate and rhythm. No clicks, murmurs, or rubs. LUNGS: Very diminished due to body habitus. ABDOMEN: Obese, soft, nontender, positive bowel sounds present. EXTREMITIES: Pedal pulses are palpable. 1 to 2+ pedal edema. DIAGNOSTIC STUDIES LABORATORY RESULTS: ABGs show pH is 7.440, pCO2 of 33.0, PO2 157.0, HCO3 22.4, O2 saturation 100% that is on the ventilator. Glucose is 176, BUN 34, creatinine 1.7, eGFR is 37.6, sodium 140, potassium 4.9, chloride 109, CO2 is 21, calcium is 8.3. AST 22, ALT 39, alkaline phosphatase is 171, bilirubin total 0.6, albumin 2.6. CK is less than 43. CK-MB is 5.5, troponin less than 0.05. CK-MB is 5.0, troponin less than 0.05. CK total is 50 with troponin less than 0.03. BNP 503. Ammonia level is 35. TSH is 0.94. WBCs are 9.4, hemoglobin 7.2, hematocrit 22.7, platelets is 127. Urine tox screen, positive for marijuana and opiates. Urinalysis; 3+ protein, 0.2 urobilinogen, 2+ blood, 10 to 25 rbc's, and 25 to 50 wbc's, and 1+ bacteria. IMAGING STUDIES: Chest x-ray shows bilateral diffuse interstitial infiltrates are slightly worsen likely representing developing pulmonary edema. No pneumothorax. NG tube. Unit #: [id number] #: [id number] Patient: X-ray of the abdomen shows gas patterns normal. CT of the head, nothing acute. CARDIOVASCULAR STUDIES: EKG shows normal sinus rhythm with ventricular rate 77 beats per minute, poor R-wave progression, peaked T waves in inferolateral, she does have some nonspecific ST-T wave abnormalities in the septal leads. IMPRESSION 1. Acute on chronic hypoxic respiratory failure, aspiration pneumonia, exacerbation of chronic obstructive pulmonary disease. 2. Cardiopulmonary arrest. 3. Acute on chronic kidney disease. 4. Hypertension, poorly controlled. 5. Chronic obstructive pulmonary disease, obstructive sleep apnea. 6. Diabetes mellitus, type 2. 7. Fibromyalgia. 8. Urinary tract infection. 9. Hypothyroidism. 10. Recent patellar fracture, has been in rehab. 11. Anemia. 12. Hyperkalemia. 13. Positive for marijuana and opiates. 14. Nicotine abuse. PLAN 1. Continue to monitor cardiac enzymes and EKG. The patient is on IV fluids and antibiotics, sedated on the vent. The patient is on Cardene drip for her poorly controlled blood pressure. The patient was never hypotensive. We will initiate IV Lopressor every 6 hours and titrate off the Cardene drip. 2. The BNP is 503, so we will start the patient on some IV Bumex. 3. Obtain a 2D echo to evaluate. Started on IV Bumex. The patient is to continue on steroids and low-dose Lovenox. Monitor labs. 4. The patient had a repeat potassium level and it had improved. Dr. Cherry is planning to do a bronchoscopy today. 5. Cardiac enzymes have been negative. We will continue to monitor. 6. Obtain a fasting lipid profile and TSH, and evaluate. 7. Probable need to consult Nephrology, because the patient has possible nephrotic syndrome with an elevated protein and low albumin and anasarca. 8. The patient is on the ventilator. We will discuss with the patient of smoking cessation along with stopping opiate and marijuana abuse. 9. Further recommendations pending per Dr. Suarez. Thank you very much for allowing us to assist in her care. Dictated by... Silvana Ramirez A.P.R.N. for Page Herrera/anton TD: 02/18/2017 06:26 JOB #: [id number] Unit #: [id number] #: [id number] Patient: CONSULTATION REPORT Page 1 of 1 X Silvana Ramirez APRN CONSULTATION REPORT
--- NOTE | ~2017-02-15 | CR72 ---
[facility] A Service of [facility] & [facility] RADIOLOGY TEXT RESULTS PATIENT: CECY PETE LOCATION: [address] : [birth year] UNIT #: [id number] AGE: [address]: Sydnee Martinez MD SEX: F ORDER DR: [id number] [facility] [address] [place], [place] [address] [id number] I MR#: [id number] Acc #: [id number] NAME: CECY PETE : 1955 SEX: F STUDY DATE/TIME: 02/18/2017 05:30 [facility]IT: [facility]OM: [facility] STUDY DESCRIPTION: CR Chest Single View Portable Attending Physician: Lisa Charles M.D. Ordering Physician: Jayce Chavez M.D. Primary Care Physician: Primary Care Physician No MEDICAL IMAGING REPORT This report is preliminary unless electronic signature is present EXAM Portable chest 02/18 at 05:30 INDICATIONS Respiratory failure. Aspiration pneumonia. History of cardiac arrest. FINDINGS AP portable chest is compared with 02/17/2017. ET tube and left IJ line are in good position. Feeding tube is in the stomach. Cardiomegaly is stable. There are small bilateral effusions which are stable as well. Minimal infiltrate or atelectasis in both bases, relatively stable as well. Jta-ko-cpcfe lungs are clear. No pneumothorax. Dictated by... Dave Santoyo Jr., M.D. THIS IS AN ELECTRONICALLY VERIFIED REPORT Dave Santoyo Jr., M.D. at 02/19/2017 5:53 AM SUMAN/adal TD: 02/18/2017 08:15 JOB #: [id number] MEDICAL IMAGING REPORT Page 1 of 1 COPY
--- NOTE | ~2017-02-15 | CT15 ---
[facility] A Service of [facility] RADIOLOGY TEXT RESULTS PATIENT: CECY PETE LOCATION: [address] : [birth year] UNIT #: [id number] AGE: [address]: Lisa Charles MD SEX: F ORDER DR: [id number] [facility] [address] [place], [place] [address] [id number] I MR#: [id number] Acc #: [id number] NAME: CECY PETE : 1955 SEX: F STUDY DATE/TIME: 02/15/2017 18:48 UNIT: [facility] ROOM: [facility] STUDY DESCRIPTION: CT Angio Chest Attending Physician: Lisa Charles M.D. Ordering Physician: Dave Argueta M.D. Primary Care Physician: Primary Care Physician No MEDICAL IMAGING REPORT This report is preliminary unless electronic signature is present EXAM CT angiogram chest, abdomen and pelvis with IV contrast FINDINGS Result text under order number [id number]. Please see this order for result text. Dictated by... Desean Hall M.D. THIS IS AN ELECTRONICALLY VERIFIED REPORT Desean Hall M.D. at 02/16/2017 2:43 PM DFL/to TD: 02/16/2017 11:01 JOB #: [id number] MEDICAL IMAGING REPORT Page 1 of 1 COPY
--- NOTE | ~2017-02-15 | CT71 ---
[facility] A Service of [facility] RADIOLOGY TEXT RESULTS PATIENT: KINGFEBRUARY LOCATION: [facility] PSY[facility]IC[facility]3 : 59 UNIT #: [id number] AGE: [address]: Lisa Charles MD SEX: F ORDER DR: [id number] [facility] [address] [place], [place] [address] [id number] I MR#: [id number] Acc #: [id number] NAME: CECY PETE : 1955 SEX: F STUDY DATE/TIME: 02/15/2017 21:47 UNIT: [facility] ROOM: [facility] STUDY DESCRIPTION: CT Head Wo Contrast Attending Physician: Lisa Charles M.D. Ordering Physician: Dave Argueta M.D. Primary Care Physician: Primary Care Physician No MEDICAL IMAGING REPORT This report is preliminary unless electronic signature is present EXAM CT brain without contrast HISTORY Unresponsive today. Cardiopulmonary arrest. TECHNIQUE This CT examination was performed with one or more of the following radiation dose reduction techniques: automatic exposure control, adjustment of mA and/or kV according to patient size, and iterative reconstruction. FINDINGS CT brain without contrast demonstrates no intracranial hemorrhage, mass or edema. No midline shift or ventricular dilatation or extraaxial fluid collection. Minimal dystrophic calcifications in the left lentiform nucleus. Small amount of fluid and mucosal thickening in the maxillary sinuses bilaterally. Chronic medial bowing deformity of the right medial orbital wall, stable compared to 06/01/2013 CT. Bilateral orbital proptosis is also similar to the prior CT. IMPRESSION No acute intracranial findings. Dictated by... Desean Hall M.D. THIS IS AN ELECTRONICALLY VERIFIED REPORT Desean Hall M.D. at 02/16/2017 2:42 PM DFL/gaby [facility] A Service of [facility] RADIOLOGY TEXT RESULTS PATIENT: KINGFEBRUARY LOCATION: PS[facility]RIC[facility]3 PSYCHIATRICCU3 : 59 UNIT #: [id number] AGE: [address]: Lisa Charles MD SEX: F ORDER DR: TD: 02/16/2017 13:54 JOB #: [id number] MEDICAL IMAGING REPORT Page 1 of 1 COPY
--- NOTE | ~2017-02-15 | CO ---
Unit #: [id number] #: [id number] Patient: KINGFEBRUARY [id number] [address] [place], [place] [address] [id number] I MR#: [id number] NAME: CEYC PETE ROOM: CICCU3 Age: 61 Sex: F Admission Date: 02/15/2017 : 1955 Attending Physician: Lisa Charles M.D. Primary Care Physician: Primary Care Physician No CONSULTATION REPORT REASON FOR CONSULTATION Critical care management, respiratory failure. CHIEF COMPLAINT Cardiac arrest. HISTORY OF PRESENT ILLNESS This is a 61-year-old female with past medical history of hypertension, diabetes mellitus, neuropathy, hypothyroidism, COPD, fibromyalgia, went out with the family and presented with a cardiac arrest. She possibly aspirated. I am seeing the patient currently intubated, sedated, no family present at the bedside. PAST MEDICAL HISTORY 1. Hypertension. 2. Diabetes. 3. Hypothyroidism. 4. TIA. 5. Fibromyalgia. 6. COPD. PAST SURGICAL HISTORY 1. Status post cardiac catheterization. 2. Cholecystectomy. 3. . 4. Tumor removed from ovaries. HOME MEDICATIONS As per DEC and has been reviewed. ALLERGIES 1. Levaquin. 2. Tramadol. SOCIAL HISTORY One-half pack smoker per day. No alcohol abuse. No drug abuse. FAMILY HISTORY Diabetes, CVA, hypertension, coronary artery disease. PHYSICAL EXAMINATION NEUROLOGIC: Sedated, intubated. LUNGS: Bilateral air entry, bilateral mild rhonchi. HEART: S1 plus S2. Unit #: [id number] #: [id number] Patient: CECY PETE ABDOMEN: Nontender, soft. Positive bowel sounds. EXTREMITIES: No edema. SKIN: No rashes, no ulcers. LYMPHATIC: No lymphadenopathy. DIAGNOSTIC STUDIES LABORATORY: Reviewed. IMAGING: Reviewed. ASSESSMENT AND PLAN 1. Acute respiratory failure. 2. Aspiration pneumonia. 3. Cardiac arrest. 4. Likely drug overdose. 5. Chronic obstructive pulmonary disease with possible exacerbation. PLAN 1. Admit the patient. 2. Continue IV Zosyn. 3. Continue bronchodilator. 4. GI and DVT prophylaxis. 5. Cardiology consultation. 6. Monitor potassium level. 7. Replace electrolytes as needed. 8. Patient will be closely monitored. 9. Will try extubation trial tomorrow. 10. Please see orders for detailed plan. Thank you very much for this consultation. Dictated by... Page Andrea/re TD: 02/16/2017 19:30 JOB #: [id number] CONSULTATION REPORT Page 1 of 1 X Tommy Cherry MD CONSULTATION REPORT
--- NOTE | ~2017-02-15 | OR ---
Unit #: [id number] #: [id number] Patient: [id number] [address] [place], [place] [address] [id number] I MR#: [id number] NAME: CECY PETE ROOM: CIC3 Date of Procedure: 02/16/2017 Admission Date: 02/15/2017 Surgeon: Tommy Cherry M.D. : 1955 Attending Physician: Lisa Charles M.D. PROCEDURE OPERATIVE NOTE PROCEDURE PERFORMED Diagnostic bronchoscopy. INDICATION Pneumonia. PREPROCEDURE DIAGNOSIS Pneumonia. POSTPROCEDURE DIAGNOSIS Pneumonia. DETAILS OF PROCEDURE After taking consent from the patient's family and explaining the risks and benefits, patient was placed in proper position. A bronchoscope was introduced through the endotracheal tube which was sitting well above the edgard. We examined right upper, right middle, and right lower lobe, left upper lobe, lingula, and left lower lobe. There were thick, mucoid secretions in both lungs which were therapeutically suctioned. Then, we did a bronchoalveolar lavage in the right middle lobe and right lower lobe area with 80 mL of saline in and 20 mL back. Patient tolerated the procedure very well. No complications happened. Dictated by... Page Andrea TD: 02/16/2017 17:35 JOB #: [id number] PROCEDURE OPERATIVE NOTE Page 1 of 1 X Tommy Cherry MD X PROCEDURE OPERATIVE NOTE
--- NOTE | ~2017-02-15 | CR72 ---
[facility] A Service of [facility] & [facility] RADIOLOGY TEXT RESULTS PATIENT: CECY PETE LOCATION: [address] : [birth year] UNIT #: [id number] AGE: [address]: Lisa Charles MD SEX: F ORDER DR: [id number] [facility] [address] [place], [place] [address] [id number] I MR#: [id number] Acc #: [id number] NAME: CECY PETE : 1955 SEX: F STUDY DATE/TIME: 02/17/2017 08:54 UNIT: [facility] ROOM: [facility] STUDY DESCRIPTION: CR Chest Single View Portable Attending Physician: Lisa Charles M.D. Ordering Physician: Tommy Cherry M.D. Primary Care Physician: No Primary Care Physician MEDICAL IMAGING REPORT This report is preliminary unless electronic signature is present EXAM Portable chest 02/17/2017 at 03:39. INDICATIONS Respiratory failure. Ventilator patient. Status post cardiac arrest. COMPARISON AP portable chest compared with 02/16/2017. FINDINGS ET tube is just above the edgard. IJ line in the SVC. Heart size stable. Mild interstitial infiltrates with a basilar predominance are unchanged and probably reflect edema. There are trace bilateral effusions. No pneumothorax. Dictated by... Dave Santoyo Jr., M.D. THIS IS AN ELECTRONICALLY VERIFIED REPORT Dave Santoyo Jr., M.D. at 02/17/2017 5:19 PM RLK/ravinder TD: 02/17/2017 10:55 JOB #: [id number] MEDICAL IMAGING REPORT Page 1 of 1 COPY
--- NOTE | ~2017-02-15 | EKG ---
PATIENT: KING FEBRUARY UNIT #: [id number] Ventricular Rate: 77 BPM Atrial Rate: 77 BPM P-R Interval: 126 ms QRS Duration: 80 ms Q-T Interval: 434 ms QTC Calculation(Bezet): 491 ms P [place]: 60 degrees Calculated R [place]: -26 degrees Calculated T [place]: 99 degrees Diagnosis Line: Normal sinus rhythm Diagnosis Line: Abnormal QRS-T angle, consider primary T wave Diagnosis Line: abnormality Diagnosis Line: Prolonged QT Diagnosis Line: Abnormal ECG Diagnosis Line: When compared with ECG of 15-FEB-2017 18:29, Diagnosis Line: (unconfirmed) Diagnosis Line: No significant change was found Diagnosis Line: Confirmed by ANDREEA BORREGO MD ([id number]) on 02/17/2017 Diagnosis Line: 5:47:20 AM INTERPRETING MD: ELMO JEFF
--- NOTE | ~2017-02-15 | CR72 ---
[facility] A Service of [facility] & [facility] RADIOLOGY TEXT RESULTS PATIENT: CECY PETE LOCATION: [address] : [birth year] UNIT #: [id number] AGE: [address]: Lisa Charles MD SEX: F ORDER DR: [id number] [facility] [address] [place], [place] [address] [id number] I MR#: [id number] Acc #: [id number] NAME: CECY PETE : 1955 SEX: F STUDY DATE/TIME: 02/16/2017 01:41 UNIT: [facility] ROOM: [facility] STUDY DESCRIPTION: CR Chest Single View Portable Attending Physician: Lisa Charles M.D. Ordering Physician: Tariq Suarez M.D. Primary Care Physician: Primary Care Physician No MEDICAL IMAGING REPORT This report is preliminary unless electronic signature is present EXAM Portable chest, 02/16 at 01:41 INDICATIONS Cardiac arrest yesterday. Shortness of air. FINDINGS AP portable chest is compared with 02/15/2017. ET tube and left IJ line are in good position. Tip of an NG tube below the diaphragm. Heart size stable. Bilateral diffuse interstitial infiltrates are slightly worsened which likely reflects developing pulmonary edema. No pneumothorax. Dictated by... Dave Santoyo Jr., M.D. THIS IS AN ELECTRONICALLY VERIFIED REPORT Dave Santoyo Jr., M.D. at 02/16/2017 9:24 PM SUMAN/dylan TD: 02/16/2017 20:58 JOB #: [id number] MEDICAL IMAGING REPORT Page 1 of 1 COPY
--- NOTE | ~2017-02-15 | CR72 ---
[facility] A Service of [facility] RADIOLOGY TEXT RESULTS PATIENT: KINGFEBRUARY LOCATION: CICCU3 CICCU3 : 59 UNIT #: [id number] AGE: [address]: Lisa Charles MD SEX: F ORDER DR: [id number] [facility] [address] [place], [place] [address] [id number] I MR#: [id number] Acc #: [id number] NAME: CECY PETE : 1955 SEX: F STUDY DATE/TIME: 02/15/2017 20:39 UNIT: [facility] ROOM: [facility] STUDY DESCRIPTION: CR Chest Single View Portable Attending Physician: Lisa Charles M.D. Ordering Physician: Dave Argueta M.D. Primary Care Physician: Primary Care Physician No MEDICAL IMAGING REPORT This report is preliminary unless electronic signature is present EXAM Chest x-ray single view portable HISTORY Line placement, full arrest today COMMENT/COMPARISON Single frontal portable view of the chest timed 203802/15/2017, compared to earlier today. FINDINGS Endotracheal tube satisfactory. Interval placement of a left IJ approach catheter, which terminates distal SVC right atrial junction level. There is no pneumothorax. The cardiac silhouette is mildly enlarged. There is again airspace disease predominantly in the upper lungs with vascular congestion and interstitial edema. Patchy airspace disease throughout the remainder of the lungs. Mild cardiac enlargement not changed. IMPRESSION Interval placement of a left IJ approach central venous catheter which terminates distal SVC right atrial junction level. No pneumothorax. Dictated by... Tiffany Winston M.D. THIS IS AN ELECTRONICALLY VERIFIED REPORT Tiffany Winston M.D. at 02/16/2017 1:45 PM SAC/to [facility] A Service of [facility] & [facility] RADIOLOGY TEXT RESULTS PATIENT: KINGFEBRUARY LOCATION: CICCU3 CICCU320 : 59 UNIT #: [id number] AGE: [address]: Lisa Charles MD SEX: F ORDER DR: TD: 02/16/2017 11:39 JOB #: [id number] MEDICAL IMAGING REPORT Page 1 of 1 COPY
--- NOTE | ~2017-02-15 | EKG ---
PATIENT: CECY PETE UNIT #: [id number] Ventricular Rate: 94 BPM Atrial Rate: 94 BPM P-R Interval: 134 ms QRS Duration: 94 ms Q-T Interval: 360 ms QTC Calculation(Bezet): 450 ms P [place]: 73 degrees Calculated R [place]: -45 degrees Calculated T [place]: 90 degrees Diagnosis Line: Normal sinus rhythm Diagnosis Line: Left axis deviation Diagnosis Line: Abnormal ECG Diagnosis Line: When compared with ECG of 23-JAN-2017 17:51, Diagnosis Line: No significant change was found Diagnosis Line: Confirmed by SIMRAN CAT MD ([id number]) on Diagnosis Line: 02/17/2017 8:36:13 AM INTERPRETING MD: STEPHANIA JEFF
--- NOTE | ~2017-02-15 | HP ---
Unit #: [id number] #: [id number] Patient: [id number] [facility] [place], [place] [address] [id number] I MR#: [id number] NAME: CECY PETE ROOM: CICCU3 Age: 61 Sex: F Admission Date: 02/15/2017 : 1955 Attending Physician: Lisa Charles M.D. Primary Care Physician: No Primary Care Physician HISTORY AND PHYSICAL CHIEF COMPLAINT Cardiopulmonary arrest. DISCUSSION This is a 61-year-old female with a history of hypertension, insulin dependent diabetes with neuropathy, hypothyroid in the past, negative cardiac cath in 2004, fibromyalgia, COPD. She was recently admitted here for the nondisplaced left patella fracture in 01/2017. She had also shortness of breath at that time. She underwent V/Q scan for PE. It was low probability. Eventually, she was discharged on 01/28/17 to rehab. She was at rehab. She went home today to visit and then she became sudden onset of shortness of breath and EMS was called. On arrival of EMS, she was found to be hypoxic, oxygen in the 70s, and she was brought to the emergency room. While in the ER, she became apneic and lost her pulse. CPR was started for one (1) and then she was intubated. She got pulse and blood pressure. Blood pressure was also found to be elevated on arrival, 244/177. Currently, she is on the vent and intubated. PAST MEDICAL HISTORY 1. History of hypertension. 2. Insulin dependent diabetes with neuropathy. 3. History of hypothyroid in the past. 4. History of previous TIA. 5. Fibromyalgia. 6. COPD. 7. History of nondisplaced left patella fracture. PAST SURGICAL HISTORY 1. Status post cardiac cath in 2008 which was normal. 2. Cholecystectomy. 3. . 4. Tumor removed from ovary. SOCIAL HISTORY The patient used to live with daughter at home. She was sent to rehab. She smokes about a 1/4 to 1/2 pack per day. She does not drink alcohol. No history of drug abuse in the past. FAMILY HISTORY Positive for diabetes, CVA, hypertension, coronary artery disease. ALLERGIES She is allergic to Levaquin and tramadol. Unit #: [id number] #: [id number] Patient: MEDICATIONS Medication from home was followin. Phenergan 12.25 q.6 hour p.r.n. 2. Cozaar 100 mg daily. 3. Endocet, one tablet q.4 hour p.r.n., 5/325. 4. Gabapentin 300 mg three times daily. 5. Metoprolol 25 mg twice a day. 6. Isosorbide 10 mg twice daily. 7. Hydrochlorothiazide 25 mg daily. 8. Ferrous sulfate 325 daily. REVIEW OF SYSTEMS Unobtainable from patient. She is on the vent. PHYSICAL EXAMINATION GENERAL: Middle aged female, currently on the vent. CURRENT VITAL SIGNS: Temperature 96, heart rate 79, respiratory rate 20, blood pressure 196/80. She is on the vent. HEENT: Pupils are dilated, not reactive. NECK: Supple. No JVD. LUNGS: Decreased air entry bilaterally. HEART: S1, S2. Regular rate and rhythm. ABDOMEN: Soft. EXTREMITIES: No cyanosis, no clubbing, no edema. NEURO: Unable to do neuro exam. She is on the vent. DIAGNOSTIC STUDIES LABORATORY: Urine shows turbid appearance, nitrate negative, WBC 25-50, ammonia level 35. INR is 1, sodium 144, potassium 5.4, chloride 101, glucose 173, BUN 34, creatinine 2, alkaline phos. 217, bilirubin total 0.5, albumin 3. Urine toxicology is positive for marijuana and opiates. Lactic acid level 2.3. CBC - white count 10, hemoglobin 8, hematocrit 26, platelets 154. Troponin less than 0.05. Glucose 165. ABG - pH 7.025, pCO2 88. IMAGING: Chest x-ray is questionable, suspected pneumonia. CT chest for PE protocol was done but result is still pending. ASSESSMENT AND PLAN 1. Cardiopulmonary arrest: She is currently on the vent. 2. Urinary tract infection. 3. Hypercapnic respiratory failure. 4. Hyperkalemia. 5. Acute kidney injury. 6. Anemia. 7. Urine toxicology positive for marijuana and opiates. 8. History of insulin dependent diabetes mellitus with nephropathy. Unit #: [id number] #: [id number] Patient: 9. History of hypertension, uncontrolled. 10. History of recent nondisplaced left patella fracture. 11. History of hypothyroid in the past. 12. History of chronic obstructive pulmonary disease. 13. Fibromyalgia. Plan is to admit to ICU, vent management with Dr. Cherry. Start on IV Zosyn, IV Protonix, Accu-Chek sliding scale, hydralazine on a p.r.n. basis. Hold p.o. medication at this time. Will get also CT head without contrast. Will follow up CT PE protocol. Dictated by Lisa Charles M.D. RAMAKRISHNA/tsering TD: 02/16/2017 09:01 JOB #: [id number] HISTORY AND PHYSICAL Page 1 of 1 X X HISTORY AND PHYSICAL
--- NOTE | ~2017-02-15 | CR6 ---
[facility] A Service of [facility] & [facility] RADIOLOGY TEXT RESULTS PATIENT: CECY PETE [facility] 59 UNIT #: [id number] AGE: [address]: Lisa Charles MD SEX: F ORDER DR: [id number] [facility] [address] [place], [place] [address] [id number] I MR#: [id number] Acc #: [id number] NAME: CECY PETE : 1955 SEX: F STUDY DATE/TIME: 02/16/2017 01:39 [facility]: [facility] STUDY DESCRIPTION: CR Abdomen Portable Sng View Attending Physician: Lisa Charles M.D. Ordering Physician: Lisa Charles M.D. Primary Care Physician: Primary Care Physician No MEDICAL IMAGING REPORT This report is preliminary unless electronic signature is present EXAM Single view abdomen, 02/16 at 01:39 INDICATIONS NG tube placement. FINDINGS Supine views of the abdomen were obtained. NG tube is in the stomach. Bowel gas pattern is normal. Dictated by... Daev Santoyo Jr., M.D. THIS IS AN ELECTRONICALLY VERIFIED REPORT Dave Santoyo Jr., M.D. at 02/16/2017 9:23 PM SUMAN/dylan TD: 02/16/2017 19:05 JOB #: [id number] MEDICAL IMAGING REPORT Page 1 of 1 COPY
--- NOTE | ~2017-02-15 | CR7 ---
[facility] A Service of [facility] RADIOLOGY TEXT RESULTS PATIENT: CECY PETE LOCATION: [address]20 : 59 UNIT #: [id number] AGE: [address]: Lisa Charles MD SEX: F ORDER DR: [id number] [facility] [address] [place], [place] [address] [id number] I MR#: [id number] Acc #: [id number] NAME: CECY PETE : 1955 SEX: F STUDY DATE/TIME: 02/17/2017 13:09 UNIT: [facility] ROOM: [facility] STUDY DESCRIPTION: CR Abdomen Single AP View Attending Physician: Lisa Charles M.D. Ordering Physician: Sydnee Martinez M.D. Primary Care Physician: No Primary Care Physician MEDICAL IMAGING REPORT This report is preliminary unless electronic signature is present EXAM Frontal abdomen 02/17/2017 INDICATION Dobbhoff tube placement in a 61-year-old female. TECHNIQUE AND COMPARISON Frontal abdomen was performed and compared with 02/16/2017. FINDINGS Preexisting enteric tube is doubled back upon the more proximal tubing at the level of the gastric fundus. There is a new flexible tip feeding tube present with the tip at the level of the proximal body stomach. Gallbladder is surgically absent. Probable temperature probe on a Albarado catheter projects over the pelvis. No dilated air-filled loops of bowel. IMPRESSION 1. There is a probable Dobbhoff tube at the level of the proximal body stomach. Preexisting enteric tube is at the level of the gastric fundus. Dictated by... Jai Ivy M.D. THIS IS AN ELECTRONICALLY VERIFIED REPORT Jai Ivy M.D. at 02/17/2017 4:32 PM Sylvain TD: 02/17/2017 15:39 JOB #: [id number] MEDICAL IMAGING REPORT [facility] A Service [facility] RADIOLOGY TEXT RESULTS PATIENT: LOCATION: [facility] CIC[facility]3-20 : 59 UNIT #: [id number] AGE: [address]: Lisa Charles MD SEX: F ORDER DR: Page 1 of 1 COPY
--- NOTE | ~2017-02-15 | CR72 ---
[facility] A Service of [facility] & [facility] RADIOLOGY TEXT RESULTS PATIENT: CECY PETE LOCATION: [address]-20 : 59 UNIT #: [id number] AGE: [address]: Lisa Charles MD SEX: F ORDER DR: [id number] [facility] [address] [place], [place] [address] [id number] I MR#: [id number] Acc #: [id number] NAME: CECY PETE : 1955 SEX: F STUDY DATE/TIME: 02/15/2017 18:41 UNIT: [facility] ROOM: [facility] STUDY DESCRIPTION: CR Chest Single View Portable Attending Physician: Lisa Charles M.D. Ordering Physician: Dave Argueta M.D. Primary Care Physician: Primary Care Physician No MEDICAL IMAGING REPORT This report is preliminary unless electronic signature is present EXAM Chest x-ray single view portable HISTORY Intubated today for shortness of breath. COMMENT Single frontal portable view of the chest timed 18:41 02/15/2017 compared to a study from 01/23/2017. Endotracheal tube satisfactory. Mild cardiac silhouette enlargement. Again there is enlargement of the main pulmonary artery segment which raises concern for a component of pulmonary hypertension. There is new airspace disease, especially in the bilateral upper lungs with new/worsening vascular congestion centrally and interstitial edema. I suspect there is also some underlying chronic lung disease. No pneumothorax or obvious pleural effusion. IMPRESSION 1. Endotracheal tube satisfactory. 2. Worsening in the appearance of the chest. Cardiac silhouette is enlarged and there is suggestion of a component of pulmonary hypertension. There are new infiltrates in the upper lungs. There is worsening vascular congestion and interstitial edema centrally with some worsening patchy central airspace disease. Suspect some underlying chronic lung disease. Please correlate for clinical evidence of volume overload. The more focal airspace disease in the upper lungs is concerning for aspiration or pneumonia also. Clinical correlation and follow up to complete resolution recommended. Dictated by... Tiffany Winston M.D. THIS IS AN ELECTRONICALLY VERIFIED REPORT Tiffany Winston M.D. at 02/16/2017 1:44 PM [facility] A Service of [facility] & [facility] RADIOLOGY TEXT RESULTS PATIENT: YANCI LOCATION: [facility] CICCU3-20 : 59 UNIT #: [id number] AGE: [address]: Lisa Charles MD SEX: F ORDER DR: NORMA/gaby TD: 02/16/2017 09:12 JOB #: [id number] MEDICAL IMAGING REPORT Page 1 of 1 COPY
[~2017-02-15 17:51] MED LIST changes: +ZESTRIL10 M1 PO
[2017-02-15] MEDS ORDERED: METOPROLOL TAR25 MG PO (18:12)
[2017-02-15] MEDS ORDERED: GABAPENTIN300 MG PO (18:12)
[2017-02-15] MEDS ORDERED: ISOSORBIDE MONO10 MG PO (18:12)
[2017-02-15] MEDS ORDERED: FERRO-TIME325 MG PO (18:13)
[2017-02-15] MEDS ORDERED: HYDROCHLOROTHIA25 MG PO (18:13)
[2017-02-15] MEDS ORDERED: PHENERGAN25 M1 PO (18:13)
[2017-02-15] MEDS ORDERED: COZAAR PO (18:14)
[2017-02-15] MEDS ORDERED: ENDOCET 5-3251 EACH PO (18:14)
[2017-02-15 18:16] LABS: ARTERIAL BLD GAS O2 SATURATION 96.9 % (90.0-100.0); ARTERIAL BLOOD GAS CARBOXY HB 1.6 %sat (0.0-9.0); ARTERIAL BLOOD GAS HCO3 23.2 mmol/L; ARTERIAL BLOOD GAS MET HB 0.9 %sat (0.0-2.0)
[2017-02-15 18:18] LABS: ARTERIAL BLOOD GAS ART SITE LEFT BRACHIAL; ARTERIAL BLOOD GAS DELIVERY AMBU BAG; ARTERIAL BLOOD GAS PCO2 88.9 mmHg (35.0-45.0); ARTERIAL BLOOD GAS pH 7.025 (7.350-7.450); ARTERIAL DRAW? YES
[2017-02-15 18:28] LABS: POC - TROPONIN <0.05 ng/mL (<=0.05)
[2017-02-15 18:37] LABS: BASOPHIL# 0.1 X10e3 (0-0.3); BASOPHIL% 0.8 % (0-2.5); EOSINOPHIL# 0.1 X10e3 (0-0.7); EOSINOPHIL% 1.2 % (0.0-7.0); HEMATOCRIT 26.3 % (35.0-45.0); LYMPHOCYTE# 4.6 X10e3 (1.0-3.5); LYMPHOCYTE% 43.5 % (17.0-45.0); MEAN CELL VOLUME 85.7 FL (83-96); MEAN CORPUSCULAR HEMOGLOBIN 26.2 PG (28-34); MEAN CORPUSCULAR HGB CONC 30.6 g/dL (30-36); MEAN PLATELET VOLUME 8.3 FL (6.5-11.5); MONOCYTE# 0.5 X10e3 (0-1.0); MONOCYTE% 5.1 % (3.0-12.0); NEUTROPHIL# 5.2 X10e3 (1.5-7.1); NEUTROPHIL% 49.4 % (40-75); PLATELET COUNT 154 X10e3 (140-420); RED BLOOD COUNT 3.07 X10e (3.90-5.30); RED CELL DISTRIBUTION WIDTH 18.2 % (11.0-15.5); WHITE BLOOD COUNT 10.5 X10e3 (4.0-10.5)
[2017-02-15 18:39] LABS: DIFF IND NO
[2017-02-15 18:42] LABS: URINE APPEARANCE TURBID; URINE BILIRUBIN NEG (NEG); URINE BLOOD 2+ (NEG); URINE COLOR YELLOW; URINE GLUCOSE NEG (NEG); URINE KETONE NEG (NEG); URINE LEUKOCYTE ESTERASE NEG (NEG); URINE NITRATE NEG (NEG); URINE PROTEIN 3+ (NEG); URINE SPECIFIC GRAVITY 1.015 (1.003-1.035); URINE UROBILINOGEN 0.2 MG/DL (NEG)
[2017-02-15 18:45] LABS: CULTURE INDICATED? YES; URINE BACTERIA AUWI 1+ (NEGATIVE); URINE SQUAMOUS EPITHELIAL CELL FEW /[HPF]; UWBCS1 AUWI 25-50 (0-5)
[2017-02-15 18:52] LABS: AMPHETAMINE NEG (NEG); BARBITURATES NEG (NEG); BENZODIAZEPINES NEG (NEG); COCAINE NEG (NEG); MARIJUANA POS (NEG); OPIATES POS (NEG); TRICYCLIC ANTIDEPRESSANTS NEG (NEG); U METHADONE NEG (NEG)
[2017-02-15 18:53] LABS: PARTIAL THROMBOPLASTIN TIME 24.3 SECONDS (23.5-31.3); PROTHROMBIN TIME (PATIENT) 10.5 SECONDS (9.6-11.5)
[2017-02-15 18:57] LABS: BILIRUBIN, DIRECT 0.1 mg/dL (0.0-0.2); BILIRUBIN,INDIRECT 0.4 mg/dL (0.0-0.9); BILIRUBIN,TOTAL 0.5 mg/dL (0.2-2.0); CALCIUM SERUM 8.3 mg/dL (8.4-10.2); GLOM FILT RATE Estimated 30.9 mL/min (>60); POTASSIUM 5.4 mmol/L (3.5-5.1); PROTEIN TOTAL SERUM 7.6 g/dL (6.0-8.3)
[2017-02-15 19:26] LABS: URINE SOURCE CATH
[2017-02-15 19:27] LABS: URINE AMORPHOUS SEDIMENT AMORP URATES
[2017-02-15 20:15] LABS: ARTERIAL BLD GAS O2 SATURATION 93.9 % (90.0-100.0); ARTERIAL BLOOD GAS CARBOXY HB 1.7 %sat (0.0-9.0); ARTERIAL BLOOD GAS HCO3 25.6 mmol/L
[2017-02-15 20:16] LABS: ARTERIAL BLOOD GAS ALLEN TEST NORMAL; ARTERIAL BLOOD GAS ART SITE LEFT RADIAL; ARTERIAL BLOOD GAS DELIVERY VENT; ARTERIAL BLOOD GAS PCO2 68.5 mmHg (35.0-45.0); ARTERIAL BLOOD GAS VENT MODE AC; ARTERIAL BLOOD GAS pH 7.181 (7.350-7.450); ARTERIAL DRAW? YES
[2017-02-15 21:10] LABS: POC - CREATININE 1.49 mg/dL (0.44-1.03)
[2017-02-15 21:27] LABS: POC - CKMB 5.5 ng/mL (0.0-7.9); POC - TROPONIN <0.05 ng/mL (<=0.05)
[2017-02-15 21:31] LABS: ARTERIAL BLD GAS O2 SATURATION 94.5 % (90.0-100.0); ARTERIAL BLOOD GAS ALLEN TEST NORMAL; ARTERIAL BLOOD GAS ART SITE LEFT RADIAL; ARTERIAL BLOOD GAS CARBOXY HB 1.3 %sat (0.0-9.0); ARTERIAL BLOOD GAS DELIVERY VENT; ARTERIAL BLOOD GAS HCO3 24.6 mmol/L; ARTERIAL BLOOD GAS MET HB 0.9 %sat (0.0-2.0); ARTERIAL BLOOD GAS PO2 94.1 mmHg (80.0-100); ARTERIAL BLOOD GAS VENT MODE AC; ARTERIAL BLOOD GAS pH 7.208 (7.350-7.450); ARTERIAL DRAW? YES
[2017-02-16 04:21] LABS: ARTERIAL DRAW? YES
[2017-02-16 04:22] LABS: ARTERIAL BLOOD GAS ALLEN TEST NORMAL; ARTERIAL BLOOD GAS DELIVERY VENT; ARTERIAL BLOOD GAS VENT MODE AC
[2017-02-16 04:33] LABS: BASOPHIL% 0.5 % (0-2.5); DIFF IND NO; EOSINOPHIL% 0.5 % (0.0-7.0); HEMATOCRIT 22.7 % (35.0-45.0); HEMOGLOBIN 7.2 gm/dL (12.0-16.0); LYMPHOCYTE# 0.9 X10e3 (1.0-3.5); LYMPHOCYTE% 9.2 % (17.0-45.0); MEAN CELL VOLUME 83.6 FL (83-96); MEAN CORPUSCULAR HEMOGLOBIN 26.5 PG (28-34); MEAN CORPUSCULAR HGB CONC 31.6 g/dL (30-36); MEAN PLATELET VOLUME 8.3 FL (6.5-11.5); MONOCYTE# 0.4 X10e3 (0-1.0); MONOCYTE% 4.6 % (3.0-12.0); NEUTROPHIL% 85.2 % (40-75); PLATELET COUNT 127 X10e3 (140-420); RED BLOOD COUNT 2.71 X10e (3.90-5.30); RED CELL DISTRIBUTION WIDTH 18.1 % (11.0-15.5); WHITE BLOOD COUNT 9.4 X10e3 (4.0-10.5)
[2017-02-16 04:49] LABS: ALBUMIN SERUM 2.6 g/dL (3.5-5.0); BILIRUBIN,TOTAL 0.6 mg/dL (0.2-2.0); CALCIUM SERUM 8.3 mg/dL (8.4-10.2); CREATININE SERUM 1.7 mg/dL (0.6-1.4); GLOM FILT RATE Estimated 37.6 mL/min (>60); POTASSIUM 4.9 mmol/L (3.5-5.1); PROTEIN TOTAL SERUM 6.5 g/dL (6.0-8.3)
[2017-02-16 05:05] LABS: ARTERIAL BLOOD GAS HCO3 22.4 mmol/L
[2017-02-16 05:07] LABS: ARTERIAL BLOOD GAS ART SITE RIGHT RADIAL; ARTERIAL BLOOD GAS MET HB 0.9 %sat (0.0-2.0)
[2017-02-16 06:27] LABS: CK TOTAL 42 IU/L (26-140)
[2017-02-16 19:11] LABS: BODY FLUID APPEARANCE CLOUDY; BODY FLUID SOURCE BRONCHIAL LAVAGE
[2017-02-17 04:35] LABS: ARTERIAL BLD GAS O2 SATURATION 98.3 % (90.0-100.0); ARTERIAL BLOOD GAS CARBOXY HB 0.5 %sat (0.0-9.0); ARTERIAL BLOOD GAS HCO3 20.2 mmol/L; ARTERIAL BLOOD GAS MET HB 1.2 %sat (0.0-2.0); ARTERIAL BLOOD GAS PCO2 25.1 mmHg (35.0-45.0); ARTERIAL BLOOD GAS pH 7.514 (7.350-7.450)
[2017-02-17 04:36] LABS: ARTERIAL BLOOD GAS ALLEN TEST NORMAL; ARTERIAL BLOOD GAS ART SITE RIGHT RADIAL; ARTERIAL BLOOD GAS DELIVERY VENT; ARTERIAL BLOOD GAS VENT MODE A/C; ARTERIAL DRAW? YES
[2017-02-17 06:19] LABS: HEMATOCRIT 21.9 % (35.0-45.0); LYMPHOCYTE# 0.4 X10e3 (1.0-3.5); MEAN CORPUSCULAR HEMOGLOBIN 25.8 PG (28-34); MEAN CORPUSCULAR HGB CONC 31.5 g/dL (30-36); MEAN PLATELET VOLUME 8.7 FL (6.5-11.5); MONOCYTE# 0.2 X10e3 (0-1.0); MONOCYTE% 1.4 % (3.0-12.0); NEUTROPHIL# 10.5 X10e3 (1.5-7.1); NEUTROPHIL% 94.6 % (40-75); PLATELET COUNT 139 X10e3 (140-420); RED BLOOD COUNT 2.67 X10e (3.90-5.30); RED CELL DISTRIBUTION WIDTH 17.7 % (11.0-15.5); WHITE BLOOD COUNT 11.1 X10e3 (4.0-10.5)
[2017-02-17 06:28] LABS: ALBUMIN SERUM 2.3 g/dL (3.5-5.0); BILIRUBIN,TOTAL 0.6 mg/dL (0.2-2.0); BUN/CREATININE RATIO 18.33; CALCIUM SERUM 7.9 mg/dL (8.4-10.2); CREATININE SERUM 1.8 mg/dL (0.6-1.4); DIFF IND YES; GLOM FILT RATE Estimated 35.1 mL/min (>60); HEMOGLOBIN 6.9 gm/dL (12.0-16.0); POTASSIUM 4.3 mmol/L (3.5-5.1); PROTEIN TOTAL SERUM 5.8 g/dL (6.0-8.3)
[2017-02-17 07:45] LABS: ANISOCYTOSIS SL; HYPOCHROMIA SL; NUCLEATED RED BLOOD CELL 1 /100 (0); PLATELET ESTIMATE NORMAL (NORMAL); POIKILOCYTOSIS SL; RBC NORMAL YES
[2017-02-17 07:46] LABS: TARGET CELLS SL
[2017-02-17 13:29] LABS: IRON SERUM 11 ug/dL (28-170); TOTAL IRON BINDING CAPACITY 232 ug/dL (269-535); TRANSFERRIN 166 mg/dL (192-382); TRANSFERRIN SATURATION 5 % (20-50)
[2017-02-18 04:41] LABS: ARTERIAL BLD GAS O2 SATURATION 98.2 % (90.0-100.0); ARTERIAL BLOOD GAS CARBOXY HB 0.6 %sat (0.0-9.0); ARTERIAL BLOOD GAS HCO3 21.7 mmol/L; ARTERIAL BLOOD GAS MET HB 1.1 %sat (0.0-2.0); ARTERIAL BLOOD GAS PCO2 32.4 mmHg (35.0-45.0); ARTERIAL BLOOD GAS pH 7.434 (7.350-7.450)
[2017-02-18 05:07] LABS: ARTERIAL BLOOD GAS ALLEN TEST NORMAL; ARTERIAL BLOOD GAS ART SITE LEFT RADIAL; ARTERIAL BLOOD GAS DELIVERY VENT; ARTERIAL BLOOD GAS VENT MODE AC; ARTERIAL DRAW? YES
[2017-02-18 05:10] LABS: BASOPHIL% 0.1 % (0-2.5); HEMATOCRIT 23.6 % (35.0-45.0); HEMOGLOBIN 7.6 gm/dL (12.0-16.0); LYMPHOCYTE# 0.7 X10e3 (1.0-3.5); MEAN CELL VOLUME 82.1 FL (83-96); MEAN CORPUSCULAR HEMOGLOBIN 26.3 PG (28-34); MEAN CORPUSCULAR HGB CONC 32.1 g/dL (30-36); MEAN PLATELET VOLUME 8.4 FL (6.5-11.5); MONOCYTE# 0.2 X10e3 (0-1.0); MONOCYTE% 2.2 % (3.0-12.0); NEUTROPHIL# 8.4 X10e3 (1.5-7.1); NEUTROPHIL% 89.7 % (40-75); PLATELET COUNT 135 X10e3 (140-420); RED BLOOD COUNT 2.88 X10e (3.90-5.30); RED CELL DISTRIBUTION WIDTH 17.4 % (11.0-15.5); WHITE BLOOD COUNT 9.4 X10e3 (4.0-10.5)
[2017-02-18 05:11] LABS: DIFF IND NO
[2017-02-18 05:43] LABS: BUN/CREATININE RATIO 19.52; CALCIUM SERUM 7.5 mg/dL (8.4-10.2); CREATININE SERUM 2.1 mg/dL (0.6-1.4); GLOM FILT RATE Estimated 29.1 mL/min (>60); POTASSIUM 4.3 mmol/L (3.5-5.1)
[2017-02-18 10:45] LABS: ARTERIAL BLD GAS O2 SATURATION 95.5 % (90.0-100.0); ARTERIAL BLOOD GAS CARBOXY HB 0.7 %sat (0.0-9.0); ARTERIAL BLOOD GAS HCO3 21.2 mmol/L; ARTERIAL BLOOD GAS PCO2 40.9 mmHg (35.0-45.0); ARTERIAL BLOOD GAS PO2 95.8 mmHg (80.0-100); ARTERIAL BLOOD GAS pH 7.323 (7.350-7.450)
[2017-02-18 10:46] LABS: ARTERIAL BLOOD GAS ALLEN TEST NORMAL; ARTERIAL BLOOD GAS ART SITE RIGHT RADIAL; ARTERIAL BLOOD GAS DELIVERY T-PIECE; ARTERIAL DRAW? YES
[2017-02-19 04:07] LABS: BASOPHIL% 0.4 % (0-2.5); HEMATOCRIT 24.7 % (35.0-45.0); HEMOGLOBIN 7.7 gm/dL (12.0-16.0); LYMPHOCYTE% 9.2 % (17.0-45.0); MEAN CELL VOLUME 82.9 FL (83-96); MEAN CORPUSCULAR HEMOGLOBIN 25.8 PG (28-34); MEAN CORPUSCULAR HGB CONC 31.1 g/dL (30-36); MEAN PLATELET VOLUME 7.9 FL (6.5-11.5); MONOCYTE# 0.7 X10e3 (0-1.0); MONOCYTE% 5.8 % (3.0-12.0); NEUTROPHIL# 9.5 X10e3 (1.5-7.1); NEUTROPHIL% 84.6 % (40-75); PLATELET COUNT 129 X10e3 (140-420); RED BLOOD COUNT 2.98 X10e (3.90-5.30); RED CELL DISTRIBUTION WIDTH 17.7 % (11.0-15.5); WHITE BLOOD COUNT 11.2 X10e3 (4.0-10.5)
[2017-02-19 04:08] LABS: DIFF IND NO
[2017-02-19 04:26] LABS: BUN/CREATININE RATIO 25.9; CALCIUM SERUM 7.4 mg/dL (8.4-10.2); CREATININE SERUM 2.2 mg/dL (0.6-1.4); GLOM FILT RATE Estimated 27.5 mL/min (>60); POTASSIUM 4.4 mmol/L (3.5-5.1)
[2017-02-20 05:51] LABS: BASOPHIL% 0.2 % (0-2.5); EOSINOPHIL% 0.1 % (0.0-7.0); HEMATOCRIT 22.9 % (35.0-45.0); HEMOGLOBIN 7.2 gm/dL (12.0-16.0); LYMPHOCYTE# 1.7 X10e3 (1.0-3.5); LYMPHOCYTE% 17.4 % (17.0-45.0); MEAN CELL VOLUME 83.3 FL (83-96); MEAN CORPUSCULAR HGB CONC 31.2 g/dL (30-36); MEAN PLATELET VOLUME 7.9 FL (6.5-11.5); MONOCYTE# 0.8 X10e3 (0-1.0); NEUTROPHIL# 7.2 X10e3 (1.5-7.1); NEUTROPHIL% 74.3 % (40-75); PLATELET COUNT 124 X10e3 (140-420); RED BLOOD COUNT 2.76 X10e (3.90-5.30); RED CELL DISTRIBUTION WIDTH 17.7 % (11.0-15.5); WHITE BLOOD COUNT 9.6 X10e3 (4.0-10.5)
[2017-02-20 05:54] LABS: DIFF IND NO
[2017-02-20 07:01] LABS: BUN/CREATININE RATIO 28.63; CALCIUM SERUM 7.7 mg/dL (8.4-10.2); CREATININE SERUM 2.2 mg/dL (0.6-1.4); GLOM FILT RATE Estimated 27.5 mL/min (>60); POTASSIUM 4.6 mmol/L (3.5-5.1)
[2017-02-21 05:48] LABS: HEMOGLOBIN 8.3 gm/dL (12.0-16.0); MEAN CELL VOLUME 83.5 FL (83-96); MEAN CORPUSCULAR HEMOGLOBIN 26.6 PG (28-34); MEAN CORPUSCULAR HGB CONC 31.8 g/dL (30-36); MEAN PLATELET VOLUME 8.1 FL (6.5-11.5); RED BLOOD COUNT 3.12 X10e (3.90-5.30); RED CELL DISTRIBUTION WIDTH 16.8 % (11.0-15.5); WHITE BLOOD COUNT 8.7 X10e3 (4.0-10.5)
[2017-02-21 06:48] LABS: CALCIUM SERUM 8.2 mg/dL (8.4-10.2); CREATININE SERUM 2.1 mg/dL (0.6-1.4); GLOM FILT RATE Estimated 29.1 mL/min (>60)
[2017-02-22] MEDS ORDERED: NORVASC10 MG PO (15:42)
[2017-02-22] MEDS ORDERED: LOPRESSOR PO (15:43)
[2017-02-22] MEDS ORDERED: HYDRALAZINE HC100 MG PO (15:45)
[2017-02-22] MEDS ORDERED: OMNICEF300 MG PO (15:45)
[2017-02-22] MEDS ORDERED: ISOSORBIDE MONO20 M1 PO (15:47)
[2017-02-22] MEDS ORDERED: B-121000 MC1 PO (15:49)
[2017-02-22] MEDS ORDERED: GLUCOTROL PO (15:50)
[2017-02-22] MEDS ORDERED: PREDNISONE10 MG PO (15:51)
[2017-02-22] MEDS ORDERED: LASIX PO (15:52)
== END 2017-02-22 18:29 | disposition home health service (06) | DRG 166 ==
LOC: CED 17:51 → CEDOF 20:12 → CICCU3 20:12 → C3A PCU 02-20 07:47
PROVIDERS: Emergency Medicine; Internal Medicine; Internal Medicine Cardiovascular Disease; Internal Medicine Pulmonary Disease
PROC: 5A1945Z Respiratory Ventilation, 24-96 Consecutive Hours (ICD-10-PCS; principal; 2017-02-15)
PROC: 0BH17EZ Insertion of Endotracheal Airway into Trachea, Via Natural or Artificial Opening (ICD-10-PCS; 2017-02-15)
PROC: 05HN33Z Insertion of Infusion Device into Left Internal Jugular Vein, Percutaneous Approach (ICD-10-PCS; 2017-02-15)
PROC: B544ZZA Ultrasonography of Left Jugular Veins, Guidance (ICD-10-PCS; 2017-02-15)
PROC: 0B9D8ZX Drainage of Right Middle Lung Lobe, Via Natural or Artificial Opening Endoscopic, Diagnostic (ICD-10-PCS; 2017-02-16)
PROC: 0B9F8ZX Drainage of Right Lower Lung Lobe, Via Natural or Artificial Opening Endoscopic, Diagnostic (ICD-10-PCS; 2017-02-16)
PROC: 0DH67UZ Insertion of Feeding Device into Stomach, Via Natural or Artificial Opening (ICD-10-PCS; 2017-02-16)
PROC: B24BZZZ Ultrasonography of Heart with Aorta (ICD-10-PCS; 2017-02-16)
PROC: 0B9M8ZZ Drainage of Bilateral Lungs, Via Natural or Artificial Opening Endoscopic (ICD-10-PCS; 2017-02-16 16:43)
PROC: 30243N1 Transfusion of Nonautologous Red Blood Cells into Central Vein, Percutaneous Approach (ICD-10-PCS; 2017-02-17)
DX: J96.22 Acute and chronic respiratory failure with hypercapnia (principal); I50.31 Acute diastolic (congestive) heart failure; J69.0 Pneumonitis due to inhalation of food and vomit; N17.9 Acute kidney failure, unspecified; J44.0 Chronic obstructive pulmonary disease with (acute) lower respiratory infection; E44.0 Moderate protein-calorie malnutrition; N18.3 Chronic kidney disease, stage 3 (moderate); F17.210 Nicotine dependence, cigarettes, uncomplicated; D50.9 Iron deficiency anemia, unspecified; I13.0 Hypertensive heart and chronic kidney disease with heart failure and stage 1 through stage 4 chronic kidney disease, or unspecified chronic kidney disease; J44.1 Chronic obstructive pulmonary disease with (acute) exacerbation; N39.0 Urinary tract infection, site not specified; J96.21 Acute and chronic respiratory failure with hypoxia; E11.22 Type 2 diabetes mellitus with diabetic chronic kidney disease; E11.65 Type 2 diabetes mellitus with hyperglycemia; Z79.4 Long term (current) use of insulin; E11.40 Type 2 diabetes mellitus with diabetic neuropathy, unspecified; I08.2 Rheumatic disorders of both aortic and tricuspid valves; E66.9 Obesity, unspecified; Z68.33 Body mass index [BMI] 33.0-33.9, adult; I27.2 Other secondary pulmonary hypertension; E03.9 Hypothyroidism, unspecified; M79.7 Fibromyalgia; Z86.73 Personal history of transient ischemic attack (TIA), and cerebral infarction without residual deficits; S82.002D Unspecified fracture of left patella, subsequent encounter for closed fracture with routine healing; X58.XXXD Exposure to other specified factors, subsequent encounter; E87.5 Hyperkalemia; G47.33 Obstructive sleep apnea (adult) (pediatric); D64.9 Anemia, unspecified; F11.90 Opioid use, unspecified, uncomplicated; F12.90 Cannabis use, unspecified, uncomplicated; Z88.8 Allergy status to other drugs, medicaments and biological substances; Z90.49 Acquired absence of other specified parts of digestive tract; Z82.49 Family history of ischemic heart disease and other diseases of the circulatory system; Z83.3 Family history of diabetes mellitus; Z82.3 Family history of stroke
CPT/HCPCS: 31500; 36415; 36556; 36600; 51702; 70450; 71010; 71275; 74000; 74174; 80048; 80053; 80061; 80076; 80307; 81003; 82140; 82550; 82553; 82565; 82607; 82803; 82947; 83036; 83540; 83550; 83605; 83880; 84132; 84134; 84443; 84484; 85025; 85027; 85610; 85730; 86850; 86900; 86901; 86923; 87070; 87086; 87102; 87116; 87205; 87206; 87252; 87254; 87278; 88108; 88305; 88312; 89051; 92526; 92610; 92950; 93005; 93306; 94002; 94003; 94640; 94660; 94760; 97110; 97116; 97163; 97166; 97530; 97535; 99291; C9113; J0171; J0360; J1650; J1815; J2250; J2405; J2543; J2916; J2920; J2930; J3010; J3490; P9016; Q9967

== ENCOUNTER 2017-03-14 02:08 | Inpatient (IN) | payer OTHER ==
--- NOTE | ~2017-03-14 | CO ---
Unit #: [id number] #: [id number] Patient: KINGFEBRUARY [id number] [place] [id number] [facility]. [place], [place] [address] [id number] I MR#: [id number] NAME: CECY PETE ROOM: 554 Age: 61 Sex: F Admission Date: 03/14/2017 : 1955 Attending Physician: Savannah Albarran M.D. Primary Care Physician: Yelena Vazquez M.D. Consultation Date: 03/17/2017 CONSULTATION REPORT CHIEF COMPLAINT Left knee pain. HISTORY OF PRESENT ILLNESS This 61-year-old female was admitted for exacerbation of congestive heart failure. Seven weeks ago, she was seen by my partner, Dr. Layton Lilly, who treated her for a nondisplaced left patellar fracture in a knee immobilizer. The patient is now readmitted with hypoxic hypercapnic respiratory failure. She continues to experience pain in the anterior knee and complains of feelings of broken glass inside the knee. She has not been wearing her brace recently, because she states her brace is now at home. She has a walker for which she utilized for ambulation. Further Orthopedic consultation is requested. PAST MEDICAL HISTORY Respiratory failure, congestive heart failure, chronic kidney disease , iron-deficiency anemia, COPD, type 2 diabetes, obesity, chronic pain syndrome, fibromyalgia, hypothyroidism. PAST SURGICAL HISTORY Cardiac cath, cholecystectomy, , ovarian tumor status post oophorectomy. ALLERGIES Levaquin and tramadol. HOME MEDICATIONS Iron, Percocet, Norvasc, Lopressor, hydralazine, isosorbide, vitamin B12, Glucotrol, prednisone, Lasix. SOCIAL HISTORY The patient is a half [id number] smoker. She denies alcohol use. REVIEW OF SYSTEMS Remarkable for shortness of breath and chest pain. PHYSICAL EXAMINATION GENERAL: This is a middle aged female, in no acute distress. She is alert, oriented, and cooperative. She is sitting up at her bedside chair eating lunch. MUSCULOSKELETAL: Evaluation of the left knee shows no effusion, warmth, or erythema. She has no palpable patellar defect. She is able to do a straight leg raise without difficulty. Range of motion is 0 to 40 degrees. After flexion more than 40 degrees, the patient complains of Unit #: [id number] #: [id number] Patient: CECY PETE pain. She is point tender primarily in the distal patellar pole. Medial and lateral collateral ligaments are stable. Travis test is negative. Pivot-shift test is negative. The leg is neurovascularly intact. No x-rays are available for my review. IMPRESSION Seven weeks status post nondisplaced left transverse patellar fracture. PLAN 1. Check left knee x-rays. 2. If x-rays are normal and show healing of the patellar fracture, I would then recommend progression with physical therapy for quadriceps strengthening and range of motion. 3. In the interim, she may weight bear as tolerated, out of her brace using the walker. Dictated by.Page Wade/anton TD: 03/18/2017 03:30 JOB #: [id number] CONSULTATION REPORT Page 1 of 1 X Naresh Cota MD X CONSULTATION REPORT
--- NOTE | ~2017-03-14 | CR169 ---
[facility] A Service of [facility] RADIOLOGY TEXT RESULTS PATIENT: KINGFEBRUARY LOCATION: [facility] [address] : [birth year] UNIT #: [id number] AGE: [address]: Savannah Albarran MD SEX: F ORDER DR: [id number] [facility] [address] [facility]. [place], [place] [address] [id number] I MR#: [id number] Acc #: [id number] NAME: CECY PETE : 1955 SEX: F STUDY DATE/TIME: 03/17/2017 14:12 UNIT: [facility] ROOM: [facility] STUDY DESCRIPTION: CR Knee 2 Views Lt Attending Physician: Savannah Albarran M.D. Ordering Physician: Savannah Albarran M.D. Primary Care Physician: Yelena Vazquez M.D. MEDICAL IMAGING REPORT This report is preliminary unless electronic signature is present EXAM Two views of the left knee. DATE 03/17/17 HISTORY History of left patellar fracture 7 weeks ago. Left knee pain today. COMPARISON Left knee radiographs 01/21/17. FINDINGS Redemonstrated is slightly displaced transversely oriented fracture of mid patella. Fracture lines do remain, without convincing evidence of osseous union at this time. Small suprapatellar joint effusion is seen. No patellar dislocation or patellar fragment distraction seen. The medial and lateral compartment spaces appear well preserved. IMPRESSION 1. Slightly displaced transversely oriented mid patellar fracture, without evidence of osseous union at this time. There is no evidence of patellar distraction or dislocation. 2. Small suprapatellar joint effusion. Dictated by... Vesna Renteria M.D. THIS IS AN ELECTRONICALLY VERIFIED REPORT Vesna Renteria M.D. at 03/18/2017 8:[address] [facility] A Service of [facility] RADIOLOGY TEXT RESULTS PATIENT: CECY PETE LOCATION: [facility] 5501-04 : [birth year] UNIT #: [id number] AGE: [address]: Savannah Albarran MD SEX: F ORDER DR: TD: 03/17/2017 21:25 JOB #: [id number] MEDICAL IMAGING REPORT Page 1 of 1 COPY
--- NOTE | ~2017-03-14 | US77 ---
[facility] A Service of [facility] RADIOLOGY TEXT RESULTS PATIENT: LOCATION: [place] [address] : [birth year] UNIT #: [id number] AGE: [address]: Savannah Albarran MD SEX: F ORDER DR: [id number] [facility] [address] [place], [place] [address] [id number] I MR#: [id number] Acc #: [id number] NAME: February : 1955 SEX: F STUDY DATE/TIME: 03/15/2017 14:56 UNIT: C5B ROOM: 4 STUDY DESCRIPTION: US Kidney Bilateral Complete Attending Physician: Sydnee Martinez M.D. Ordering Physician: Sydnee Martinez M.D. Primary Care Physician: Yelena Vazquez M.D. MEDICAL IMAGING REPORT This report is preliminary unless electronic signature is present EXAM Bilateral renal ultrasound. DATE OF STUDY 03/15/17 CLINICAL HISTORY Acute renal failure with EGFR of 26.1. FINDINGS Right kidney is echogenic, but normal in size without solid mass, calcification or hydronephrosis. The left kidney also is echogenic, but normal in size without solid mass, calcification or hydronephrosis. The urinary bladder is decompressed by a Albarado catheter. IMPRESSION Increased renal parenchymal echogenicity bilaterally. This is a nonspecific finding associated with a variety of medical renal diseases. No solid mass, calcification or hydronephrosis on either side. Dictated by... Paresh Rascon M.D. THIS IS AN ELECTRONICALLY VERIFIED REPORT Paresh Rascon M.D. at 03/25/2017 4:00 PM TEV/jt [facility] A Service [facility] RADIOLOGY TEXT RESULTS PATIENT: LOCATION: [facility] : [birth year] UNIT #: [id number] AGE: [address]: Savannah Albarran MD SEX: F ORDER DR: TD: 03/15/2017 23:52 JOB #: [id number] MEDICAL IMAGING REPORT Page 1 of 1 COPY
--- NOTE | ~2017-03-14 | CR72 ---
[facility] A Service of [facility] RADIOLOGY TEXT RESULTS PATIENT: KINGFEBRUARY LOCATION: [facility] : [birth year] UNIT #: [id number] AGE: [address]: Richard Torre MD SEX: F ORDER DR: [id number] [facility] [address] [place], [place] [address] [id number] I MR#: [id number] Acc #: [id number] NAME: KING FEBRUARY : 1955 SEX: F STUDY DATE/TIME: 03/14/2017 2:32 UNIT: [facility] ROOM: [address] STUDY DESCRIPTION: CR Chest Single View Portable Attending Physician: Richard Torre M.D. Ordering Physician: Belle Martinez M.D. Primary Care Physician: Yelena Vazquez M.D. MEDICAL IMAGING REPORT This report is preliminary unless electronic signature is present EXAM Chest x-ray 03/14/2017 HISTORY 61-year-old female in the ED complaining of 2-week history of worsening shortness of air. TECHNIQUE AP portable chest x-ray. FINDINGS Support equipment has been removed since the previous study of 02/18/2017. Current exam shows cardiomegaly with pulmonary venous redistribution suggesting borderline to mild vascular congestion, correlate clinically. Pleural effusions and basilar atelectasis present on the prior exam have resolved. Linear atelectasis left midlung. IMPRESSION Cardiomegaly and findings suggesting mild vascular congestion. Radiographic improvement since the prior exam. Dictated by... Jimmie Ocampo M.D. THIS IS AN ELECTRONICALLY VERIFIED REPORT Jimmie Ocampo M.D. at 03/14/2017 6:04 AM ROSALINDAW/gaby TD: 03/14/2017 05:56 JOB #: [id number] MEDICAL IMAGING REPORT [facility] A Service of [facility] RADIOLOGY TEXT RESULTS PATIENT: LOCATION: [facility] : 59 UNIT #: [id number] AGE: [address]: Richard Torre MD SEX: F ORDER DR: Page 1 of 1 COPY
--- NOTE | ~2017-03-14 | HP ---
Unit #: [id number] #: [id number] Patient: KINGFEBRUARY [id number] [place] [address] [address] [facility]. [place], [place] [address] [id number] I MR#: [id number] NAME: KING FEBRUARY ROOM: 554 Age: 61 Sex: F Admission Date: 03/14/2017 : 1955 Attending Physician: Sydnee Martinez M.D. Primary Care Physician: Yelena Vazquez M.D. HISTORY AND PHYSICAL CHIEF COMPLAINT Shortness of breath. HISTORY OF PRESENT ILLNESS Ms. Mckeon is a 61-year-old -[place] female with a history of chronic hypercapnic/hypoxic respiratory failure, maintained on 2 L of oxygen per nasal cannula, and diastolic congestive heart failure, who presents for above. The patient was discharged from this facility on February 22, 2017, after presenting with cardiopulmonary arrest which was primarily respiratory in origin. I will note at that time patient was suggested to go to rehab and she refused. The patient states per ER records she has been increasingly short of breath since discharge. This morning, patient is complaining only of pain in her legs and really won't provide much additional history. She had been increasingly short of breath over two weeks with increasing lower extremity edema during that time. She states she has been taking her diuretics at home and, in fact, the dose was increased by her primary care provider. She states perhaps she had some chest pressure earlier today but is now gone. She has had some mild cough but has been nonproductive and she denies any fever. She denies any sick contacts. Upon presentation to the emergency department, the patient was found to be hypertensive with a blood pressure of 182/77. Oxygen saturations were 93% on 2 L. Per ER notes, the patient was found to have wheezes and rhonchi and decreased air movement bilaterally. Chest x-ray revealed pulmonary edema. Examination also revealed 3+ edema up to the abdomen. Blood work revealed stable renal function with a creatinine of 1.9 which is patient's baseline. BNP was elevated 474. The patient was given 125 mg of Solu-Medrol, 40 of Lasix and subsequently referred for admission. This morning, she states she is not short of breath but is moaning that her legs hurt significantly and wants some IV pain medicines. Again, no chest pain currently. PAST MEDICAL HISTORY 1. Chronic hypercapnic/hypoxic respiratory failure, maintained on 2 L of oxygen per nasal cannula continuously. 2. Chronic diastolic congestive heart failure, ejection fraction of 70%. 3. Chronic kidney disease stage 3 with baseline creatinine of approximately 2.0. 4. Iron deficiency anemia. 5. COPD. 6. Diabetes mellitus type 2, noninsulin requiring and uncontrolled. Hemoglobin A1c last month was 7.0 but is felt to be artificially low. 7. Mild aortic regurgitation. 8. Mild to moderate tricuspid regurgitation. 9. Moderate protein malnutrition. Unit #: [id number] #: [id number] Patient: FEBRUARY 12. Obesity. 11. Recent left patellar fracture. 12. Chronic pain syndrome, maintained on narcotics since recent left patellar fracture. 13. Fibromyalgia. 14. History of hypothyroidism. PAST SURGICAL HISTORY 1. Cardiac cath in 2008 which was normal. 2. Cholecystectomy. 3. . 4. History of ovarian tumor, status post removal. ALLERGIES Levaquin and tramadol. HOME MEDICATIONS 1. Ferrous sulfate 325 mg daily. 2. Percocet 5/325, one tablet p.o. q.4 hours p.r.n. for pain. 3. Norvasc 10 mg daily. 4. Lopressor 50 mg b.i.d. 5. Hydralazine 100 mg t.i.d. 6. Isosorbide mononitrate, 20 mg b.i.d. 7. Vitamin B12 1000 mcg daily. 8. Glucotrol 5 mg daily. 9. Prednisone 10 mg daily. 10. Lasix 40 mg daily. However, the dosing of this Lasix is unclear to me given patient states it was increased by her PCP and this was the dose on which she was sent in February. SOCIAL HISTORY The patient continues to smoke about a half pack of cigarettes per day and has for many decades. She does not drink alcohol. She was being cared for by her daughters at home given she refused rehab. However, she does not answer my question on whether she has been getting up and moving. REVIEW OF SYSTEMS Patient complaining of leg pain, some chest pain yesterday that has resolved, and some shortness of breath that is better but, otherwise, just keeps moaning in pain and won't cooperate with a review of systems. PHYSICAL EXAMINATION VITAL SIGNS: Temperature 98.7, blood pressure 162/80, pulse rate 98, respiratory rate 19. Oxygen saturation is 91% on 3 L of oxygen per nasal cannula. GENERAL: The patient is awake, alert. She is oriented x3. She does complain of pain. HEENT: Pupils equally round, reactive to light bilaterally. Anicteric sclerae. No conjunctival pallor. Oropharynx with moist mucous membranes. No erythema or exudate. NECK: Supple. No lymphadenopathy, no thyromegaly, no appreciable JVD. Increased neck diameter noted. HEART: Regular rate and rhythm. I can't appreciate any murmur but examination is limited. LUNGS: Some crackles in the bases bilaterally. No wheezes currently. ABDOMEN: Obese, soft. It is nontender, nondistended. Positive bowel sounds. EXTREMITIES: No cyanosis or clubbing and perhaps 1+ lower extremity edema Unit #: [id number] #: [id number] Patient: YANCI currently. SKIN: Warm, moist with no rash. MUSCULOSKELETAL: No significant joint abnormalities noted upon examination. No erythema. NEUROLOGIC: Cranial nerves II-XII intact. Sensation and strength and deep tendon reflexes are all normal in upper and lower extremities bilaterally. Gait was not assessed. PSYCHIATRIC: Appropriate affect but, again, in pain. No suicidal or homicidal ideation. DIAGNOSTIC STUDIES LABORATORY: Lab work done in the emergency department reveals a sodium level of 139, potassium 5.2, chloride 104, bicarb 26, BUN 24, creatinine 1.9, glucose of 113. Albumin is low at 3.1 and alkaline phosphatase is mildly elevated at 220. Corrected calcium is normal. CBC reveals a white blood cell count of 9.4, hemoglobin 7.8, platelet count of 176,000 with normal differential. INR is normal at 1.0. Lactic acid is normal at 0.8. Initial troponin is negative. BNP elevated at 474. Urinalysis reveals 2+ protein but is otherwise unremarkable. ABG reveals a pH of 7.40, pCO2 of 42, pO2 of 49 on 2 L. IMAGING: Chest x-ray done in the emergency department reveals cardiomegaly and vascular congestion. CARDIOVASCULAR: EKG done in the emergency department reveals normal sinus rhythm. The patient does have Q waves in V1 and V2. QT is normal. Left atrial enlargement is noted. Q waves appear to be new compared to EKG from May 14th. ASSESSMENT 1. Acute on chronic diastolic congestive heart failure with ejection fraction of 70%. 2. Acute on chronic hypercapnic/hypoxic respiratory failure at 2 L of oxygen per nasal cannula at baseline. 3. Hyperkalemia. 4. Chronic kidney disease, stage 3, appears to be at baseline. 5. Chronic obstructive pulmonary disease. 6. Iron deficiency anemia. 7. Pulmonary hypertension. 8. Diabetes mellitus type 2, not insulin requiring and uncontrolled. 9. Mild aortic regurgitation. 10. Mild to moderate tricuspid regurgitation. 11. Mild protein malnutrition. 12. Obesity. 13. Recent left patellar fracture. 14. Fibromyalgia. 15. Chronic pain syndrome. 16. Hypertension, uncontrolled. PLAN 1. Will admit patient to inpatient status with telemetry. 2. Patient has been started on Lasix 40 mg IV b.i.d. I will continue this dosing and ask cardiology to further evaluate the patient to Unit #: [id number] #: [id number] Patient: ,MAY optimize medical management. 3. Will titrate her for sats greater than or equal to 90%. Will place patient on Dulera 200/5 mcg, two puffs b.i.d. in addition to Duo-Neb treatments. I am going to hold prednisone for now given it doesn't clinically appear to be indicated. 4. In regards to patient's chronic kidney disease, I am going to ask nephrology to evaluate the patient at this time given she will require some outpatient followup. She seems to also be developing perhaps some associated anemia and I would like them to be able to follow her. I will check renal ultrasound in addition to a spot urine sodium, urine protein, urine creatinine. 5. Will recheck BMP this afternoon in regards to patient's hyperkalemia. I anticipate this will resolve with her diuretic therapy. 6. Will monitor blood counts, continue iron for now. 7. Will continue home medications for diabetes. Will obtain Accu-Cheks a.c. and h.s. and provide sliding scale insulin as well. 8. I will have PT/OT evaluate the patient as well. 9. Will continue home medications for other chronic conditions. 10. I did briefly discuss with the patient that I think she needs to return to rehab given she has been hospitalized for the last three months consecutively. Dictated by Sydnee Martinez M.D. HERNAN/tsering TD: 03/14/2017 11:00 JOB #: [id number] HISTORY AND PHYSICAL Page 1 of 1 X Sydnee Martinez MD HISTORY AND PHYSICAL
--- NOTE | ~2017-03-14 | DS ---
Unit #: [id number] #: [id number] Patient: [id number] [address] [place], [place] [address] [id number] MR#: [id number] NAME: KING FEBRUARY ROOM: 554 Age: 61 Sex: F Admission Date: 03/14/2017 : 1955 Discharge Date: 03/19/2017 Attending Physician: Savannah Albarran M.D. Primary Care Physician: Yelena Vazquez M.D. DISCHARGE SUMMARY FINAL DIAGNOSES 1. Acute on chronic respiratory failure. 2. Acute on chronic diastolic congestive heart failure with left ventricular ejection fraction of 70% with mild to moderate tricuspid regurgitation. 3. Acute on chronic renal failure. 4. Anemia. 5. Normal coronaries which cath was done in 2008. 6. Hyperkalemia which is improved. 7. Left knee fracture which is old. 8. Chronic obstructive pulmonary disease. 9. Obstructive sleep apnea. 10. Hypertension. 11. Hyperlipidemia. 12. Diabetes mellitus. 13. History of pulseless electrical activity arrest in February 2017. 14. Morbid obesity. DISCHARGE MEDICATIONS 1. Vitamin B12 1000 mcg p.o. daily. 2. Isosorbide 20 mg twice a day. 3. Glucotrol 5 mg daily. 4. Percocet 5/325, one tablet q.4 p.r.n. 5. Ferrous sulfate 325 mg daily. 6. Levemir 10 units subcu daily. 7. Hydralazine 100 mg three times a day. 8. Lipitor 20 mg q. h.s. 9. Colace 100 mg three times a day. 10. Milk of magnesia 30 mL p.r.n. for constipation. 11. Bumex 1 mg p.o. twice a day. 12. Lopressor 100 mg p.o. q. 12 hourly. 13. Neurontin 100 mg b.i.d. 14. Mini neb treatment with albuterol and Atrovent q.i.d. and q.4 p.r.n. 15. Dulera 200 mcg, two puffs inhaler twice a day. CONSULTATION DURING HOSPITALIZATION 1. Dr. Sierra - Cardiology Services. 2. Dr. Colton Bucio - Renal Services. 3. Dr. Cota - Orthopedic Surgery. 4. PT/OT in the hospital. LAB WORKUP ON DISCHARGE Magnesium is 1.9, sodium 138, potassium 5.0, chloride 100, BUN 50, creatinine 2.3, calcium 8.3. BNP 249 on March 17. Unit #: [id number] #: [id number] Patient: CECY MCKEON CBC on March 16 shows WBC 7.8, hemoglobin 9.1, hematocrit 28.6, platelet count of 173. Calcium is 7.6 and parathyroid hormone is 450, elevated. Urinalysis shows 2+ protein. SIGNIFICANT RADIOLOGICAL STUDIES DONE DURING HOSPITALIZATION Ultrasound of the kidneys bilaterally which shows increased renal parenchymal echogenicity bilaterally. This is a nonspecific finding associated with variety of medical renal disease. No solid mass, calcification or hydronephrosis are seen. Chest x-ray, PA and lateral, showed stable cardiomegaly with vascular congestive changes. No evidence of overt pulmonary edema. Knee x-ray was done which shows slightly displaced transversely oriented mid patellar fracture without evidence of osseous union at this time. There is no evidence of patellar distraction or dislocation. HOSPITAL COURSE Ms. Cecy Mckeon is a 61-year-old female who has had multiple admissions to hospital, was admitted on March 14, 2017, by Dr. Sydnee Martinez for shortness of breath. The patient's admitting diagnosis is acute on chronic diastolic congestive heart failure and acute on chronic hypercapnic/hypoxic respiratory failure on 2 L of oxygen per nasal cannula. The patient also had hyperkalemia. She has a history of chronic kidney disease stage 3. Cardiology was consulted and patient's diuretics were adjusted as per their recommendation. The patient will follow up with Dr. Sierra as an outpatient. The patient's blood pressure is stable. She needs to continue metoprolol/hydralazine/Imdur/cholesterol medications. The patient is not on LENIN inhibitors because of the renal insufficiency. The patient was also seen by Renal. The patient does have chronic kidney disease stage 3. Need to prevent NSAIDs, LENIN and ARBs. The patient's renal functions are stable at this time. Diabetes mellitus: The patient's diabetes is stable. The patient has been started on Levemir. The patient does have proteinuria secondary to diabetes mellitus. Hypertension is stable on current medications. Left knee fracture: The patient is seven weeks status post left transverse patellar fracture. X-ray was done. Dr. Cota has evaluated the x-ray and, as per his recommendation, patient may bend knee as tolerated. Quads as tolerated. The patient will be discharged to rehab facility. VITAL SIGNS on discharge - blood pressure is 140/50, respiratory rate is 16, pulse is 74, temperature 99.5, oxygen saturation is 96%. The patient is awake, alert, oriented. CHEST has fair air entry, decreased at the bases. CVS - S1, S2 positive. Regular. EXTREMITIES - edema is present but much decreased from admission. DISCHARGE INSTRUCTIONS Unit #: [id number] #: [id number] Patient: FEBRUARY 03. [facility] 2. PT/OT as per Ortho. 3. Medication as per Med Rec. 4. Follow up with cardiology, Dr. Sierra, on April 11 at 11:30. 5. BMP in one week. 6. Followup Renal as outpatient if it gets worse as outpatient. Plan of care has been discussed with patient at length. Dictated by... Savannah Albarran M.D. ROSIBEL/tsering TD: 03/19/2017 08:48 JOB #: [id number] DISCHARGE SUMMARY Page 1 of 1 X Savannah Albarran MD X DISCHARGE SUMMARY
--- NOTE | ~2017-03-14 | EKG ---
PATIENT: KING FEBRUARY UNIT #: [id number] Ventricular Rate: 94 BPM Atrial Rate: 94 BPM P-R Interval: 132 ms QRS Duration: 82 ms Q-T Interval: 352 ms QTC Calculation(Bezet): 440 ms P [employer]: 60 degrees Calculated R [employer]: -28 degrees Calculated T [employer]: 93 degrees Diagnosis Line: Normal sinus rhythm Diagnosis Line: Possible Left atrial enlargement Diagnosis Line: Abnormal QRS-T angle, consider primary T wave Diagnosis Line: abnormality Diagnosis Line: Abnormal ECG Diagnosis Line: When compared with ECG of 16-FEB-2017 10:11, Diagnosis Line: QT has shortened Diagnosis Line: Confirmed by ANDREEA BORREGO MD ([id number]) on 03/16/2017 Diagnosis Line: 4:17:43 PM INTERPRETING MD: ELMO JEFF
--- NOTE | ~2017-03-14 | CO ---
Unit #: [id number] #: [id number] Patient: [id number] [id number] [facility]. [place], [place] [address] [id number] I MR#: [id number] NAME: KING FEBRUARY ROOM: 554 Age: 61 Sex: F Admission Date: 03/14/2017 : 1955 Attending Physician: Savannah Albarran M.D. Primary Care Physician: Yelena Vazquez M.D. Consultation Date: 03/14/2017 CONSULTATION REPORT REASON FOR CONSULTATION Chronic kidney disease with likely diabetic nephropathy. HISTORY OF PRESENT ILLNESS Ms. Mckeon is a 61-year-old female, who has been in and out of the hospital over the last few months for respiratory issues and even coded during a previous admission with respiratory failure, who presented again with shortness of breath. This was accompanied by swelling and fluid retention despite a recent increase in her home Lasix to 1-1/2 pills per day. Interestingly, her weights in the computer are relatively unchanged since February. We were asked to see for a creatinine of 1.9 today. It looks like this is very close to the baseline that she has been running over the last several months. She tells me that she has been a diabetic for about 30 years. She also has a history of poorly controlled hypertension. She denies the use of any NSAIDs at home. No history of kidney stones. She does have a Albarado catheter in place with clear urine. No urinary complaints prior to coming in to the hospital. PAST MEDICAL HISTORY Significant for CKD, stage 3/4; diastolic congestive heart failure; chronic hypercapnic hypoxic respiratory failure, maintained on 2 L of oxygen with COPD; hypertension; diabetes; iron-deficiency anemia; mild aortic regurgitation; ajaj-dp-uamygnoz tricuspid regurgitation; chronic pain syndrome; fibromyalgia; and hypothyroidism. PAST SURGICAL HISTORY Previous cardiac cath, cholecystectomy, , and history of ovarian tumor removal. HOME MEDICATIONS Iron tablet daily, Endocet every 4 hours as needed, Norvasc 10 mg a day, Lopressor 50 mg b.i.d., hydralazine 100 mg t.i.d., Imdur 20 mg b.i.d., vitamin B12 daily, Glucotrol 5 mg a day, prednisone 10 mg a day, and Lasix 40 mg daily. ALLERGIES She has coded allergies to Levaquin and tramadol. FAMILY HISTORY She has a significant family history of diabetes with multiple family members affected. She denies any family history of kidney disease or dialysis. SOCIAL HISTORY Unit #: [id number] #: [id number] Patient: CECY MCKEON The patient tells me that she has not smoked since her rehab stay in February. No alcohol or drug abuse. She is cared for by some daughters at home and is very weak again and unable to move around except in a wheelchair. REVIEW OF SYSTEMS A complete 12-point review of systems was completed with the above findings. In addition, she denies any dizziness. No nosebleed, sore throat, or earache. No chest pain. No palpitations. No cough. No hemoptysis. No nausea, vomiting, or diarrhea. No bright red blood per rectum or melena. No dysuria or gross hematuria. The swelling in her legs has gotten better since she has been here. No rashes or itching. No flank pain. No night sweats or hot flashes. No intolerance to heat or cold. No bleeding issues. No weight changes according to the chart here. No bleeding issues. Unless otherwise indicated, the review of systems was negative. PHYSICAL EXAMINATION VITAL SIGNS: The patient is afebrile, pulse 101, respiratory rate 20, blood pressure 159/58 down from 182/77. GENERAL: This is a pleasant 61-year-old female, seems older than her stated age, who is alert and oriented, in no acute distress. HEENT: Head is atraumatic and normocephalic. Eyes show pale conjunctivae with no scleral icterus. No nasal drainage or nosebleed. Oropharynx is moist with no thrush. NECK: Shows no rigidity. HEART: Regular rate and rhythm with soft murmur present. No gallop or rub appreciated. LUNGS: Clear anteriorly with no wheezing or rhonchi. Breathing is nonlabored. ABDOMEN: Soft, nontender, and nondistended. Bowel sounds are present. No rebound. No guarding. EXTREMITIES: The patient has 1+ pitting edema below the knees bilaterally without cyanosis. SKIN: Dry with no rashes. Her lower extremities are very tender to palpation. MUSCULOSKELETAL: No CVA tenderness to palpation. NEUROLOGICAL: Cranial nerves are grossly intact. The patient does have generalized weakness especially in her legs. LYMPHATIC: There is no neck or cervical lymphadenopathy. PSYCHIATRIC: Mood and affect appear normal. DIAGNOSTIC STUDIES IMAGING STUDIES: Chest x-ray on admission showed some mild vascular congestion, which is improved since the prior exam. I do note a CT angiogram of the abdomen from 02/15 with no comment on any kidney abnormalities. LABORATORY RESULTS: Glucose 161. Urinalysis on admission showed 2+ protein, no blood. ABG showed a pH of 7.405, pCO2 of 43, PO2 of 49, bicarb of 27. BNP was 474. CBC showed a hemoglobin of just 7.8. Chemistry this morning; sodium 139, potassium 5.2, chloride 104, bicarb 26, glucose 113, BUN 24, creatinine 1.9, albumin just 3.1. Prior creatinines have been in this range during her recent admissions. Previous urines here have all demonstrated anywhere between 1 and 3+ proteinuria. ASSESSMENT AND PLAN 1. Chronic kidney disease, stage 3. This is likely diabetic related with Unit #: [id number] #: [id number] Patient: CECY MCKEON proteinuria and longstanding diabetes. She is not on LENIN inhibitor due to previous hyperkalemia. Dr. Martinez has ordered an ultrasound already and again previous CT scan did not mention any kidney abnormalities. We will watch her kidney function closely with needed diuresis. 2. Congestive heart failure, which is diastolic in nature. We will continue IV Lasix for breathing and edema issues. 3. Proteinuria. The patient still has some hyperkalemia, which may be related to her sugars. We will hold off on an LENIN inhibitor or an angiotensin receptor elaine for the present time. 4. Hypertension. Home medications have been renewed, and we will continue diuresis, which should help. 5. Diabetes, longstanding. 6. Chronic obstructive pulmonary disease with recent tobacco use. 7. Pulmonary hypertension. 8. Immobility syndrome. The patient would appear to need rehab again. 9. Anemia of chronic disease. I will recheck iron studies and replace IV if needed. I would like to thank Dr. Martinez for this consult and the opportunity to participate in evaluation and care of Ms. Mckeon. Dictated by... Albert Bucio Jr., M.D. SANJUANA/anton TD: 03/16/2017 03:07 JOB #: [id number] CONSULTATION REPORT Page 1 of 1 X Albert Bucio MD CONSULTATION REPORT
--- NOTE | ~2017-03-14 | CR63 ---
[facility] A Service of [facility] RADIOLOGY TEXT RESULTS PATIENT: KINGFEBRUARY LOCATION: [facility] [address] : [birth year] UNIT #: [id number] AGE: [address]: Savannah Albarran MD SEX: F ORDER DR: [id number] [facility] [address]. [place], [place] [address] [id number] I MR#: [id number] Acc #: [id number] NAME: CECY PETE : 1955 SEX: F STUDY DATE/TIME: 03/17/2017 14:12 UNIT: [facility] ROOM: 4 STUDY DESCRIPTION: CR Chest 2 View Attending Physician: Savannah Albarran M.D. Ordering Physician: Savannah Albarran M.D. Primary Care Physician: Yelena Vazquez M.D. MEDICAL IMAGING REPORT This report is preliminary unless electronic signature is present EXAM PA and lateral chest DATE 03/17/2017 at 14:12 HISTORY 61-year-old female with shortness of breath today. History of congestive heart failure and kidney disease. COMPARISON AP portable chest, 03/14/2017. FINDINGS Stable cardiac enlargement. Mild central vascular congestive changes persist, similar to the previous examination, without evidence of raman interstitial or alveolar edema. Questionable trace pleural effusion posteriorly on the lateral chest radiograph only. Benign calcified lymph nodes in the mediastinum. Thoracic spondylosis. IMPRESSION 1. Stable cardiomegaly with vascular congestive change. No evidence of overt pulmonary edema. 2. Questionable trace pleural effusions, seen in the posterior costophrenic sulcus on the lateral radiograph only. Dictated by... Vesna Renteria M.D. THIS IS AN ELECTRONICALLY VERIFIED REPORT Vesna Renteria M.D. at 03/18/2017 8:48 AM [facility] A Service of [facility] RADIOLOGY TEXT RESULTS PATIENT: KINGFEBRUARY LOCATION: [facility] 5501-04 : [birth year] UNIT #: [id number] AGE: [address]: Savannah Albarran MD SEX: F ORDER DR: TD: 03/17/2017 21:12 JOB #: [id number] MEDICAL IMAGING REPORT Page 1 of 1 COPY
[~2017-03-14 02:08] MED LIST changes: +B-121000 MC1 PO; +COZAAR PO; +ENDOCET 5-3251 EACH PO; +FERRO-TIME325 MG PO; +GABAPENTIN300 MG PO; +GLUCOTROL PO; +HYDRALAZINE HC100 MG PO; +HYDROCHLOROTHIA25 MG PO; +ISOSORBIDE MONO10 MG PO; +ISOSORBIDE MONO20 M1 PO; +LASIX PO; +METOPROLOL TAR25 MG PO; +NORVASC10 MG PO; +OMNICEF300 MG PO; +PHENERGAN25 M1 PO; +PREDNISONE10 MG PO
[2017-03-14 02:59] LABS: BASOPHIL% 0.3 % (0-2.5); DIFF IND YES; EOSINOPHIL# 0.1 X10e3 (0-0.7); EOSINOPHIL% 0.7 % (0.0-7.0); HEMATOCRIT 24.6 % (35.0-45.0); HEMOGLOBIN 7.8 gm/dL (12.0-16.0); LYMPHOCYTE# 2.1 X10e3 (1.0-3.5); LYMPHOCYTE% 22.7 % (17.0-45.0); MEAN CELL VOLUME 83.7 FL (83-96); MEAN CORPUSCULAR HEMOGLOBIN 26.4 PG (28-34); MEAN CORPUSCULAR HGB CONC 31.6 g/dL (30-36); MEAN PLATELET VOLUME 8.1 FL (6.5-11.5); MONOCYTE# 0.7 X10e3 (0-1.0); MONOCYTE% 7.7 % (3.0-12.0); NEUTROPHIL# 6.4 X10e3 (1.5-7.1); NEUTROPHIL% 68.6 % (40-75); PLATELET COUNT 176 X10e3 (140-420); RED BLOOD COUNT 2.94 X10e (3.90-5.30); RED CELL DISTRIBUTION WIDTH 17.8 % (11.0-15.5); WHITE BLOOD COUNT 9.4 X10e3 (4.0-10.5)
[2017-03-14 03:02] LABS: POC - CKMB 1.9 ng/mL (0.0-7.9); POC - TROPONIN <0.05 ng/mL (<=0.05)
[2017-03-14 03:12] LABS: PARTIAL THROMBOPLASTIN TIME 28.9 SECONDS (23.5-31.3); PROTHROMBIN TIME (PATIENT) 10.7 SECONDS (9.6-11.5)
[2017-03-14 03:18] LABS: ALBUMIN SERUM 3.1 g/dL (3.5-5.0); BILIRUBIN, DIRECT 0.1 mg/dL (0.0-0.2); BILIRUBIN,INDIRECT 0.8 mg/dL (0.0-0.9); BILIRUBIN,TOTAL 0.9 mg/dL (0.2-2.0); BUN/CREATININE RATIO 12.63; CALCIUM SERUM 8.3 mg/dL (8.4-10.2); CREATININE SERUM 1.9 mg/dL (0.6-1.4); GLOM FILT RATE Estimated 32.9 mL/min (>60); POTASSIUM 5.2 mmol/L (3.5-5.1); PROTEIN TOTAL SERUM 7.2 g/dL (6.0-8.3)
[2017-03-14 03:25] LABS: ANISOCYTOSIS MOD; HYPOCHROMIA MOD; PLATELET ESTIMATE NORMAL (NORMAL); POIKILOCYTOSIS MOD; ROULEAUX SLIGHT
[2017-03-14 03:35] LABS: ARTERIAL BLD GAS O2 SATURATION 84.7 % (90.0-100.0); ARTERIAL BLOOD GAS ALLEN TEST NORMAL; ARTERIAL BLOOD GAS ART SITE RIGHT RADIAL; ARTERIAL BLOOD GAS CARBOXY HB 1.7 %sat (0.0-9.0); ARTERIAL BLOOD GAS HCO3 26.8 mmol/L; ARTERIAL BLOOD GAS MET HB 0.9 %sat (0.0-2.0); ARTERIAL BLOOD GAS PCO2 42.8 mmHg (35.0-45.0); ARTERIAL BLOOD GAS PO2 48.7 mmHg (80.0-100); ARTERIAL BLOOD GAS pH 7.405 (7.350-7.450); ARTERIAL DRAW? YES
[2017-03-14 04:04] LABS: URINE SOURCE CLEAN CATCH
[2017-03-14 04:11] LABS: URINE APPEARANCE CLEAR; URINE BILIRUBIN NEG (NEG); URINE BLOOD NEG (NEG); URINE COLOR YELLOW; URINE GLUCOSE NEG (NEG); URINE KETONE NEG (NEG); URINE LEUKOCYTE ESTERASE NEG (NEG); URINE NITRATE NEG (NEG); URINE PROTEIN 2+ (NEG); URINE SPECIFIC GRAVITY 1.005 (1.003-1.035); URINE UROBILINOGEN 0.2 MG/DL (NEG)
[2017-03-14 04:14] LABS: URBCS1 AUWI 0-2 /[HPF] (0-2); URINE BACTERIA AUWI NEG (NEGATIVE); URINE SQUAMOUS EPITHELIAL CELL NONE SEEN /[HPF]; UWBCS1 AUWI 0-2 (0-5)
[2017-03-14 04:23] LABS: CULTURE INDICATED? NO
[2017-03-14 15:09] LABS: CREATININE,RANDOM URINE 27 mg/dL; SODIUM URINE RANDOM 135 mmol/L; TOTAL PROTEIN,RANDOM URINE 143 mg/dl (<10)
[2017-03-14 15:43] LABS: BUN/CREATININE RATIO 13.8; CALCIUM SERUM 7.9 mg/dL (8.4-10.2); CREATININE SERUM 2.1 mg/dL (0.6-1.4); GLOM FILT RATE Estimated 29.1 mL/min (>60)
[2017-03-14 15:49] LABS: POTASSIUM 5.7 mmol/L (3.5-5.1)
[2017-03-15 05:35] LABS: MEAN CELL VOLUME 84.1 FL (83-96); MEAN CORPUSCULAR HEMOGLOBIN 26.6 PG (28-34); MEAN CORPUSCULAR HGB CONC 31.7 g/dL (30-36); MEAN PLATELET VOLUME 8.4 FL (6.5-11.5); RED BLOOD COUNT 2.49 X10e (3.90-5.30); RED CELL DISTRIBUTION WIDTH 17.6 % (11.0-15.5); WHITE BLOOD COUNT 8.7 X10e3 (4.0-10.5)
[2017-03-15 05:54] LABS: HEMOGLOBIN 6.6 gm/dL (12.0-16.0)
[2017-03-15 06:17] LABS: ALBUMIN SERUM 2.4 g/dL (3.5-5.0); BILIRUBIN,TOTAL 0.2 mg/dL (0.2-2.0); BUN/CREATININE RATIO 16.95; CALCIUM SERUM 7.5 mg/dL (8.4-10.2); CREATININE SERUM 2.3 mg/dL (0.6-1.4); GLOM FILT RATE Estimated 26.1 mL/min (>60); MAGNESIUM 1.4 mg/dL (1.6-3.0); PHOSPHOROUS 5.5 mg/dL (2.5-4.6); PROTEIN TOTAL SERUM 5.8 g/dL (6.0-8.3)
[2017-03-15 06:21] LABS: POTASSIUM 5.5 mmol/L (3.5-5.1)
[2017-03-16 06:19] LABS: HEMATOCRIT 28.6 % (35.0-45.0); MEAN CELL VOLUME 84.4 FL (83-96); MEAN PLATELET VOLUME 8.2 FL (6.5-11.5); RED BLOOD COUNT 3.39 X10e (3.90-5.30); RED CELL DISTRIBUTION WIDTH 16.7 % (11.0-15.5); WHITE BLOOD COUNT 7.8 X10e3 (4.0-10.5)
[2017-03-16 06:23] LABS: HEMOGLOBIN 9.1 gm/dL (12.0-16.0)
[2017-03-16 07:06] LABS: BUN/CREATININE RATIO 20.9; CALCIUM SERUM 7.9 mg/dL (8.4-10.2); CREATININE SERUM 2.2 mg/dL (0.6-1.4); GLOM FILT RATE Estimated 27.5 mL/min (>60); MAGNESIUM 1.9 mg/dL (1.6-3.0); POTASSIUM 5.2 mmol/L (3.5-5.1)
[2017-03-17 06:57] LABS: ALBUMIN SERUM 2.5 g/dL (3.5-5.0); BUN/CREATININE RATIO 21.81; CALCIUM SERUM 8.2 mg/dL (8.4-10.2); CREATININE SERUM 2.2 mg/dL (0.6-1.4); GLOM FILT RATE Estimated 27.5 mL/min (>60); MAGNESIUM 2.1 mg/dL (1.6-3.0); PHOSPHOROUS 4.1 mg/dL (2.5-4.6); POTASSIUM 5.1 mmol/L (3.5-5.1)
[2017-03-18 07:02] LABS: BUN/CREATININE RATIO 21.73; CALCIUM SERUM 8.3 mg/dL (8.4-10.2); CREATININE SERUM 2.3 mg/dL (0.6-1.4); GLOM FILT RATE Estimated 26.1 mL/min (>60)
[2017-03-18 19:19] LABS: CALCIUM (PTHINTACT) 7.6 mg/dL (8.6-10.4)
== END 2017-03-19 14:54 | DRG 291 ==
LOC: CED 02:08 → CEDOF 04:40 → C5B 04:40 → CEDOF 04:52 → CED 04:52 → C5B 06:27 → CEDOF 06:27 → C5B 07:25
PROVIDERS: Emergency Medicine; Internal Medicine; Internal Medicine Cardiovascular Disease; Internal Medicine Nephrology; Physician Assistant Medical
PROC: 30233N1 Transfusion of Nonautologous Red Blood Cells into Peripheral Vein, Percutaneous Approach (ICD-10-PCS; principal; 2017-03-15)
PROC: 3E0234Z Introduction of Serum, Toxoid and Vaccine into Muscle, Percutaneous Approach (ICD-10-PCS; 2017-03-19)
DX: I13.0 Hypertensive heart and chronic kidney disease with heart failure and stage 1 through stage 4 chronic kidney disease, or unspecified chronic kidney disease (principal); I50.33 Acute on chronic diastolic (congestive) heart failure; J96.21 Acute and chronic respiratory failure with hypoxia; E11.21 Type 2 diabetes mellitus with diabetic nephropathy; E44.1 Mild protein-calorie malnutrition; I27.2 Other secondary pulmonary hypertension; E83.42 Hypomagnesemia; J96.22 Acute and chronic respiratory failure with hypercapnia; E87.5 Hyperkalemia; N18.3 Chronic kidney disease, stage 3 (moderate); E11.22 Type 2 diabetes mellitus with diabetic chronic kidney disease; J44.9 Chronic obstructive pulmonary disease, unspecified; G47.33 Obstructive sleep apnea (adult) (pediatric); E78.5 Hyperlipidemia, unspecified; D63.1 Anemia in chronic kidney disease; E66.01 Morbid (severe) obesity due to excess calories; R80.9 Proteinuria, unspecified; S82.002D Unspecified fracture of left patella, subsequent encounter for closed fracture with routine healing; D50.9 Iron deficiency anemia, unspecified; I36.1 Nonrheumatic tricuspid (valve) insufficiency; M79.7 Fibromyalgia; G89.4 Chronic pain syndrome; E03.9 Hypothyroidism, unspecified; Z90.49 Acquired absence of other specified parts of digestive tract; F17.210 Nicotine dependence, cigarettes, uncomplicated; Z23 Encounter for immunization; Z79.84 Long term (current) use of oral hypoglycemic drugs; Z79.52 Long term (current) use of systemic steroids
CPT/HCPCS: 36415; 36600; 51702; 71010; 71020; 73560; 76770; 80048; 80053; 80076; 81003; 82040; 82310; 82553; 82570; 82728; 82803; 82947; 83540; 83550; 83605; 83735; 83880; 83970; 84100; 84156; 84300; 84484; 85025; 85027; 85610; 85730; 86850; 86900; 86901; 86923; 87040; 93005; 94640; 94664; 94760; 96374; 97116; 97163; 97166; 97530; 97535; 99285; J0610; J1650; J1815; J1940; J2270; J2930; J3475; P9016

== ENCOUNTER 2017-05-21 12:15 | Emergency (ER) | payer OTHER ==
[~2017-05-21] VITALS: Ht 157.5 cm; Wt 81.6 kg
--- NOTE | ~2017-05-21 | EKG ---
PATIENT: CECY PETE UNIT #: [id number] Ventricular Rate: 67 BPM Atrial Rate: 67 BPM P-R Interval: 128 ms QRS Duration: 82 ms Q-T Interval: 412 ms QTC Calculation(Bezet): 435 ms P [place]: 61 degrees Calculated R [place]: -31 degrees Calculated T [place]: 95 degrees Diagnosis Line: Normal sinus rhythm Diagnosis Line: Left axis deviation Diagnosis Line: Abnormal QRS-T angle, consider primary T wave Diagnosis Line: abnormality Diagnosis Line: Abnormal ECG Diagnosis Line: When compared with ECG of 14-MAR-2017 03:03, Diagnosis Line: No significant change was found Diagnosis Line: Confirmed by PILAR BRIDGES MD ([id number]) on Diagnosis Line: 05/21/2017 10:47:56 PM INTERPRETING MD: BEBE
--- NOTE | ~2017-05-21 | CR72 ---
[facility] A Service of [facility] RADIOLOGY TEXT RESULTS PATIENT: KINGFEBRUARY LOCATION: [place] : 59 UNIT #: [id number] AGE: [address]: Tino Garcia MD SEX: F ORDER DR: [id number] [facility] [address] [place], [place] [address] [id number] E MR#: [id number] Acc #: [id number] NAME: CECY PETE : 1955 SEX: F STUDY DATE/TIME: 05/21/2017 12:43 UNIT: [place] ROOM: STUDY DESCRIPTION: CR Chest Single View Portable Attending Physician: Tino Garcia Ordering Physician: Ed Doctor [id number] [facility] Primary Care Physician: Yelena Vazquez M.D. MEDICAL IMAGING REPORT This report is preliminary unless electronic signature is present EXAM Portable chest x-ray, 05/21/2017. HISTORY Short of air. Recent PE. Patient states current symptoms 1 week. Prior history of CHF, stroke, and diabetes. TECHNIQUE AP radiograph of the chest is presented. COMPARISON 05/08/2017. FINDINGS Significantly improved appearance compared to earlier study. Interval removal of endotracheal tube and enteric tube. Stable cardiac enlargement. The lungs well inflated. Pulmonary vasculature is abnormally prominent suggesting vascular congestion. Linear interstitial prominence in the lungs most pronounced vlm-ge-ohzhs lung zones. This likely reflects some degree of chronic change and probable interstitial edema or interstitial pneumonitis. Interstitial edema favored. There is no dense airspace disease. Bilateral pleural effusions and dense left retrocardiac opacification seen on the prior examination have completely resolved. There is a calcified granuloma at the right lung base. No pneumothorax. No acute-appearing bony abnormality. Note made of densely calcified mediastinal lymph nodes. Dictated by... Jerzy Sanders M.D. [facility] A Service of [facility] RADIOLOGY TEXT RESULTS PATIENT: KINGFEBRUARY LOCATION: [facility] : 59 UNIT #: [id number] AGE: [address]: Tino Garcia MD SEX: F ORDER DR: THIS IS AN ELECTRONICALLY VERIFIED REPORT Jerzy Sanders M.D. at 05/24/2017 10:04 PM Judie TD: 05/21/2017 17:16 JOB #: [id number] MEDICAL IMAGING REPORT Page 1 of 1 COPY
[2017-05-21 13:50] LABS: POC - CKMB 2.5 ng/mL (0.0-7.9); POC - TROPONIN <0.05 ng/mL (<=0.05)
[2017-05-21 13:50] LABS: BASOPHIL% 0.3 % (0-2.5); EOSINOPHIL# 0.1 X10e3 (0-0.7); EOSINOPHIL% 0.7 % (0.0-7.0); HEMATOCRIT 24.6 % (35.0-45.0); HEMOGLOBIN 7.9 gm/dL (12.0-16.0); LYMPHOCYTE# 1.8 X10e3 (1.0-3.5); LYMPHOCYTE% 22.1 % (17.0-45.0); MEAN CELL VOLUME 87.6 FL (83-96); MEAN CORPUSCULAR HEMOGLOBIN 28.1 PG (28-34); MEAN CORPUSCULAR HGB CONC 32.1 g/dL (30-36); MONOCYTE# 0.7 X10e3 (0-1.0); MONOCYTE% 8.2 % (3.0-12.0); NEUTROPHIL# 5.4 X10e3 (1.5-7.1); NEUTROPHIL% 68.7 % (40-75); PLATELET COUNT 160 X10e3 (140-420); RED BLOOD COUNT 2.81 X10e (3.90-5.30); RED CELL DISTRIBUTION WIDTH 16.6 % (11.0-15.5); WHITE BLOOD COUNT 7.9 X10e3 (4.0-10.5)
[2017-05-21 13:54] LABS: DIFF IND YES
[2017-05-21 14:05] LABS: PLATELET ESTIMATE NORMAL (NORMAL); RBC NORMAL YES
[2017-05-21 14:06] LABS: ANISOCYTOSIS SL; HYPOCHROMIA SL; INR 1.1; PARTIAL THROMBOPLASTIN TIME 30.1 SECONDS (23.5-31.3); PROTHROMBIN TIME (PATIENT) 11.4 SECONDS (10.0-11.7)
[2017-05-21 14:07] LABS: BUN/CREATININE RATIO 21.66; CALCIUM SERUM 8.4 mg/dL (8.4-10.2); CREATININE SERUM 1.8 mg/dL (0.6-1.4); GLOM FILT RATE Estimated 35.1 mL/min (>60); POTASSIUM 4.4 mmol/L (3.5-5.1)
[2017-05-21] MEDS ORDERED: LIPITOR20 MG PO (14:46)
[2017-05-21] MEDS ORDERED: BUMETANIDE1 MG PO (14:47)
[2017-05-21] MEDS ORDERED: BASAGLAR K100 UNIT/1 SUBQ (14:47)
[2017-05-21] MEDS ORDERED: COL-RITE50 MG PO (14:47)
[2017-05-21] MEDS ORDERED: FERROUS SULFAT324 MG PO (14:48)
[2017-05-21] MEDS ORDERED: HYDROCODON-ACE1 EAC7 PO (14:49)
[2017-05-21] MEDS ORDERED: HYDRALAZINE HCL50 MG PO (14:49)
[2017-05-21] MEDS ORDERED: LASIX PO (14:49)
[2017-05-21] MEDS ORDERED: TIROSINT50 MCG PO (14:50)
[2017-05-21] MEDS ORDERED: LOPRESSOR PO (14:50)
[2017-05-21] MEDS ORDERED: VITAMIN B122500 MC1 PO (14:50)
[2017-05-21 17:03] LABS: URINE SOURCE CLEAN CATCH
[2017-05-21 17:09] LABS: URINE APPEARANCE CLEAR; URINE BILIRUBIN NEG (NEG); URINE BLOOD TRACE (NEG); URINE COLOR YELLOW; URINE GLUCOSE NEG (NEG); URINE KETONE NEG (NEG); URINE LEUKOCYTE ESTERASE 2+ (NEG); URINE NITRATE NEG (NEG); URINE PH 6.5 (5-8); URINE PROTEIN 3+ (NEG); URINE SPECIFIC GRAVITY 1.014 (1.003-1.035); URINE UROBILINOGEN 0.2 MG/DL (NEG)
[2017-05-21 17:10] LABS: CULTURE INDICATED? YES; U HYALINE CASTS AUWI 0-2 /[LPF]; URINE BACTERIA AUWI 1+ (NEGATIVE); URINE SQUAMOUS EPITHELIAL CELL FEW /[HPF]
== END 2017-05-21 17:50 | disposition home or self-care (01) ==
LOC: CED 12:15
PROVIDERS: Emergency Medicine
DX: I13.0 Hypertensive heart and chronic kidney disease with heart failure and stage 1 through stage 4 chronic kidney disease, or unspecified chronic kidney disease (principal); N39.0 Urinary tract infection, site not specified; D64.9 Anemia, unspecified; E11.22 Type 2 diabetes mellitus with diabetic chronic kidney disease; N18.9 Chronic kidney disease, unspecified; I50.9 Heart failure, unspecified; J44.9 Chronic obstructive pulmonary disease, unspecified
CPT/HCPCS: 36415; 71010; 80048; 81003; 82553; 84484; 85025; 85610; 85730; 87040; 87086; 87088; 87186; 93005; 94640; 99285; J2930

== ENCOUNTER 2017-05-25 11:31 | Inpatient (IN) | payer OTHER ==
[~2017-05-25] VITALS: Ht 157.5 cm; Wt 89.1 kg
--- NOTE | ~2017-05-25 | DS ---
Unit #: [id number] #: [id number] Patient: KINGFEBRUARY [id number] [id number] [facility]. [place], [place] [address] [id number] I MR#: [id number] NAME: KING FEBRUARY ROOM: 567 Age: 61 Sex: F Admission Date: 05/25/2017 : 1955 Discharge Date: 06/13/2017 Attending Physician: Savannah Albarran M.D. Primary Care Physician: Yelena Vazquez M.D. DISCHARGE SUMMARY Please note patient has had really extensive stay during this hospitalization. CONSULTATIONS DURING HOSPITALIZATION 1. Dr. Yasemin Chavez from pulmonary services. 2. Dr. Khadar Santana from GI services. 3. Dr. Subhash Connolly from hematology services. 4. Dr. Gutierrez from renal services. DIAGNOSTIC STUDIES LABORATORY: Blood workup on discharge: Sodium 142, potassium 4.1, chloride 97, BUN 74, creatinine 2.8, alk phos 228. CBC shows WBC of 5.4, hemoglobin 7.5, hematocrit 23.4, platelet count of 159. Glucose 200. DISCHARGE DIAGNOSES 1. Acute on chronic kidney disease, stage 4. Patient was seen by Dr. Gutierrez. Multiple medications were adjusted. Patient has been discontinued on ARBs and LENIN inhibitor. No NSAID tvfy-cbf-yorzjul. Patient's Bumex has been discontinued and Lasix has been started as per the recommendations. No hemodialysis at this time. Patient will continue to follow up with Dr. Gutierrez as outpatient. Patient needs to restrict fluid intake to 1500. 2. Anemia. Patient's anemia is multifactorial. Hematology was consulted. Patient will get outpatient Procrit. Dr. Santana was also consulted. Iron replacement has been done. Patient did receive packed RBC transfusion during hospitalization. Patient had EGD and C scope done and seems to be stable. 3. Hypertension. Patient's hypertension medications have been adjusted. Please refer to the discharge med rec. 4. Acute on chronic respiratory failure, which is improved. Continue oxygen at home. Patient does have obstructive sleep apnea and advised to use CPAP. 5. Congestive heart failure, seems to be stable at this time. 6. History of pulmonary embolism on Coumadin. If okay with Dr. Santana, that will be continued as outpatient. 7. Patient was treated with antibiotics for pneumonia and has completed a course of antibiotic. 8. Diabetes mellitus, which is stable. DISCHARGE MEDICATIONS Discharged medications are: 1. Ferrous sulfate 324 mg twice a day. 2. Percocet 7.5/325 one tablet q.6 p.r.n. 3. Synthroid 50 mcg p.o. every day. Unit #: [id number] #: [id number] Patient: 4. MiraLAX 17 g twice a day. 5. Lasix 80 mg twice a day. 6. Atorvastatin 20 mg every day. 7. Catapres 0.4 mg 3 times a day. 8. Hydralazine 100 mg 3 times a day. 9. Insulin, NovoLog, 8 units 3 times a day with meals. 10. Mini-neb treatment at home. 11. Florinef 0.1 mg twice a day. 12. Warfarin 5 mg every day. 13. Norvasc 5 mg every day. 14. Lopressor 50 mg twice a day. 15. Colace 100 mg 3 times a day p.r.n. 16. Isosorbide 40 mg twice a day. 17. Rocaltrol 0.25 mcg p.o. every day. EXAMINATION ON DISCHARGE VITAL SIGNS: Blood pressure 141/68, respiratory rate 18, pulse is 64, temperature 98.1, oxygen saturation is 98%. HEENT: Head is normocephalic. CHEST: Fair air entry. Decreased at the bases. CVS: Regular rhythm. DISCHARGE INSTRUCTIONS 1. Patient is being discharged home. 2. [facility] to [facility] for pulmonary rehab. 3. Discussed with patient about rehab placement, but she refused. She only wanted to go to [facility], but [facility] has refused her admission to their facility. 4. Medications as per med rec. 5. Follow up primary care provider in one week. 6. CBC, BMP in one week. 7. Follow up renal, Dr. Gutierrez, in 2-3 weeks. 8. No NSAIDs and no ARBs or LENIN inhibitors as outpatient. 9. Scheduled appointment with Dr. Rachel in 1-2 weeks for anemia and for Procrit. 10. Follow up with Dr. Chavez and Dr. Cherry in four weeks. 11. Patient does have multiple medical problems, has poor condition, and high risk for readmission. 12. 1. Dictated by... Page Kumar TD: 06/14/2017 06:31 JOB #: [id number] Unit #: [id number] #: [id number] Patient: KINGFEBRUARY DISCHARGE SUMMARY Page 1 of 1 X Savannah Albarran MD X DISCHARGE SUMMARY
--- NOTE | ~2017-05-25 | EKG ---
PATIENT: CECY PETE UNIT #: [id number] Ventricular Rate: 65 BPM Atrial Rate: 65 BPM P-R Interval: 130 ms QRS Duration: 84 ms Q-T Interval: 414 ms QTC Calculation(Bezet): 430 ms P [place]: 66 degrees Calculated R [place]: -39 degrees Calculated T [place]: 85 degrees Diagnosis Line: Normal sinus rhythm Diagnosis Line: Left axis deviation Diagnosis Line: Abnormal ECG Diagnosis Line: When compared with ECG of 25-MAY-2017 12:26, Diagnosis Line: QRS axis Shifted left Diagnosis Line: Confirmed by PILAR BRIDGES MD ([id number]) on Diagnosis Line: 05/27/2017 12:19:00 PM INTERPRETING MD: BEBE
--- NOTE | ~2017-05-25 | HP ---
Unit #: [id number] #: [id number] Patient: KINGFEBRUARY [id number] [facility] [address]. [place], [place] [address] [id number] I MR#: [id number] NAME: KING FEBRUARY ROOM: CICCU3 Age: 61 Sex: F Admission Date: 05/25/2017 : 1955 Attending Physician: Savannah Albarran M.D. Primary Care Physician: Yelena Vazquez M.D. HISTORY AND PHYSICAL CHIEF COMPLAINT Shortness of breath. HISTORY OF PRESENT ILLNESS Ms. Mckeon is a 61-year-old female with multiple medical problems. She has been admitted multiple times. She was recently at [facility]. She has a history of longstanding diabetes, hypertension, chronic kidney disease, chronic respiratory failure, obstructive sleep apnea and morbid obesity. The patient also has a history of diastolic congestive heart failure. She was admitted last year in March. The patient came to the emergency room because of shortness of breath. Her blood pressure was very much elevated in the range of 224/78. The patient was placed on nitroglycerin drip and was admitted to the ICU. The patient is kind of a poor historian. She has had PEA arrest back in 02/2017. According to the patient, she gained a lot of weight in the last few days around her abdomen and in the leg area. No complaint of orthopnea. No complaint of nausea or vomiting. The patient was admitted to the ICU at [facility]. PAST MEDICAL HISTORY 1. Chronic respiratory failure. 2. Chronic diastolic congestive heart failure. 3. Chronic kidney disease. 4. Anemia. 5. Chronic obstructive pulmonary disease. 6. Diabetes mellitus type 2. 7. Aortic regurgitation. 8. Tricuspid regurgitation. 9. Morbid obesity. 10. Obstructive sleep apnea. 11. Normal coronaries. 12. Hyperlipidemia. 13. Pulmonary embolism. Recently diagnosed at [facility]. PAST SURGICAL HISTORY 1. History of cholecystectomy. 2. History of . 3. History of ovarian tumor removal. 4. History of cardiac catheterization in the past. Allergy to Levaquin and tramadol. SOCIAL HISTORY The patient is a smoker and continues to smoke a half pack per day. No history of alcohol abuse or drug abuse. Unit #: [id number] #: [id number] Patient: CECY MCKEON HOME MEDICATIONS As per medication reconciliation. Please refer to that. REVIEW OF SYSTEMS As per history of present illness. She does not complain of nausea or vomiting. No complaint of chest pain. No complaint of paroxysmal nocturnal dyspnea. No complaint of constipation or diarrhea. The rest is as per history of present illness. PHYSICAL EXAMINATION GENERAL: The patient is examined in ICU room 19. VITALS: Blood pressure is 132/57, respiratory rate 15, pulse 80, temperature 98.2, oxygen saturation 96%. HEENT: Head is normocephalic. Eye movements are normal. NECK: Supple. CHEST: Decreased air entry bilaterally. Some rhonchi present. HEART: S1 and S2 positive. (1) murmur is positive. Regular rhythm. ABDOMEN: Soft and nontender. Bowel sounds are positive. EXTREMITIES: Edema is present. SKIN: No rashes. NEUROLOGIC: ELECTRICAL TESTER, awake, alert and oriented times three. No focal neurological deficits. DIAGNOSTIC STUDIES IMAGING: Chest x-ray single view was done, which shows cardiomegaly with mild interstitial prominence. LABORATORY: In the emergency room, lactic acid 0.6, BNP 984. Urine drug screen was positive for opiates. BMP shows sodium 143, potassium 4.8, chloride 110, BUN 34, creatinine 1.9, alcohol less than 5. Troponin less than 0.05. ASSESSMENT The patient was admitted to the ICU for the diagnosis of 1. Accelerated hypertension. 2. Htrlr-ir-olyuzvn hypoxic and hypercarbic respiratory failure. 3. Gtypl-gj-zrjnddx diastolic congestive heart failure. 4. Acute chronic obstructive pulmonary disease exacerbation. 5. Srovf-tv-efyxvtv kidney disease. 6. Possible pneumonia. 7. Diabetes mellitus. 8. Hypertension. 9. Recent PE diagnosed at [facility]. 10. Diabetes mellitus. 11. Obstructive sleep apnea. PLAN The patient was admitted to the ICU and is now being transferred to TCU. The patient was placed on IV nitro drip, which has been discontinued. IV Bumex was started. Discharge summary from [facility] will be obtained. Lovenox 1 mg/kg subcutaneous is being started. Sputum culture will be done. Solu-Medrol will be started as per Dr. Chavez. Nebulizer treatment has been started. Medication have been reviewed. Please refer to progress note for further orders. Unit #: [id number] #: [id number] Patient: CECY MCKEON Dictated by Page Kumar TD: 05/26/2017 14:21 JOB #: [id number] HISTORY AND PHYSICAL Page 1 of 1 X Savannah Albarran MD HISTORY AND PHYSICAL
--- NOTE | ~2017-05-25 | CO ---
Unit #: [id number] #: [id number] Patient: KINGFEBRUARY [id number] [address] [id number] [facility]. [place], [place] [address] [id number] I MR#: [id number] NAME: CECY MCKEON ROOM: 567 Age: 61 Sex: F Admission Date: 05/25/2017 : 1955 Attending Physician: Savannah Albarran M.D. Primary Care Physician: Yelena Vazquez M.D. CONSULTATION REPORT REASON FOR CONSULTATION Anemia. HISTORY OF PRESENT ILLNESS Ms. Mckeon is a very pleasant 61-year-old lady with multiple medical problems, including longstanding history of diabetes and hypertension. The patient was now admitted to the hospital with shortness of breath. She has had similar previous admissions as well. The patient is known to have nephrotic-range proteinuria and significant high blood pressure, up to 224/78. She has also history of congestive heart failure, contributing to her chronic kidney disease. In the last few weeks prior to admission, she had gained about 20 to 30 pounds of weight. The patient has been currently managed with diuretics and optimization of her congestive heart failure. She is found to be quite anemic. She has been already started on intravenous iron replacement therapy as well as erythropoietin support with Aranesp. She has been evaluated by Nephrology. PAST MEDICAL HISTORY Significant for hypertension, diabetes, diastolic congestive heart failure, COPD with chronic oxygen dependence, chronic kidney disease stage 3 with protein urea, iron-deficiency anemia. PAST SURGICAL HISTORY Cardiac cath, cholecystectomy, section, and history of removal of ovarian tumor. MEDICATIONS At home prior to admission included glipizide, Lopressor, Synthroid, Imdur, Colace, hydralazine, Lipitor, hydrochlorothiazide, insulin both Humalog and Levemir, Bumex, and iron tablets. ALLERGIES Include Levaquin and tramadol. FAMILY HISTORY Remarkable for diabetes, hypertension, and kidney disease requiring dialysis. SOCIAL HISTORY The patient has been a long-term smoker, but says she is not smoking actively at this time. No alcohol or drug abuse. REVIEW OF SYSTEMS Generalized fatigue, lack of energy, and dyspnea on exertion. The rest of Unit #: [id number] #: [id number] Patient: KINGFEBRUARY the review of system is negative. CONSTITUTIONAL: Patient denies fevers, chills, sweats, and weight changes. EYES: Patient denies any visual symptoms. EARS, NOSE, AND THROAT: No difficulties with hearing. No symptoms of rhinitis or sore throat. CARDIOVASCULAR: Patient denies chest pains, palpitations, orthopnea, or paroxysmal nocturnal dyspnea. RESPIRATORY: No dyspnea on exertion, no wheezing or cough. GASTROINTESTINAL: No nausea, vomiting, diarrhea, constipation, abdominal pain, hematochezia or melena. GENITOURINARY: No urinary hesitancy or dribbling. No nocturia or urinary frequency. No abnormal urethral discharge. MUSCULOSKELETAL: No myalgias or arthralgias. NEUROLOGIC: No chronic headaches, no seizures. Patient denies numbness, tingling or weakness. PSYCHIATRIC: Patient denies problems with mood disturbance. No problems with anxiety. ENDOCRINE: No excessive urination or excessive thirst. DERMATOLOGIC: Patient denies any rashes or skin changes. ALLERGIC/IMMUNOLOGIC: Denies any symptoms. HEMATOLOGIC/LYMPHATIC: Denies any symptoms. PHYSICAL EXAMINATION GENERAL: Patient appears well developed, well nourished, and healthy. Personality: Pleasant and cooperative. Mental status: Alert and oriented. Stature: ECOG performance score 0. VITAL SIGNS: The patient is afebrile, now her blood pressure has come down from very high blood pressure previously. The patient is a poor historian. The rest of the physical exam is negative. HEENT: Examination of head, eyes, ears, nose and throat is unremarkable. HEMATOLOGIC/LYMPHATIC: There is no palpable adenopathy in the inguinal, axillary or cervical areas. CARDIOVASCULAR: S1 and S2 regular. Normal rate without any murmurs or gallops. RESPIRATORY: Chest symmetrical, normal, breath sounds equal, bilaterally symmetrical. No rales or rhonchi, and no dullness to percussion. ABDOMEN/GASTROINTESTINAL: Abdomen is soft, nontender, and without palpable masses. No hepatosplenomegaly. EXTREMITIES: Peripheral pulses are normal. There is no edema, cyanosis, clubbing or significant varicosities. NEUROLOGICAL: Patient is alert and oriented x3. Cranial nerves II-XII are grossly intact. Motor strength is 5/5 and equal in all four extremities. Deep tendon reflexes are +2/4 and equal bilaterally. MUSCULOSKELETAL: No evidence of joint swelling, bone tenderness or muscle tenderness is appreciable. SKIN: No lesions or rashes. PSYCHIATRIC: No delusions or hallucinations, no loose associations, no flight of ideas, no tangentiality. Affect is appropriate. No psychomotor slowing or agitation. Eye contact is appropriate. DIAGNOSTIC STUDIES LABORATORY RESULTS: Significant for anemia, which is normocytic. There is evidence of iron deficiency. ASSESSMENT AND PLAN Ms. Dick is a very pleasant 61-year-old lady with multiple medical problems which include congestive heart failure, chronic kidney disease secondary Unit #: [id number] #: [id number] Patient: CECY MCKEON to diabetes and hypertension. The patient also has evidence of iron deficiency anemia because of possible low-grade gastrointestinal bleeding because the patient is chronically anticoagulated with Coumadin. She has already been started on intravenous iron supplements. After irons stores have been replenished, she will benefit from erythropoietin therapy. In fact, Aranesp has already been started on a weekly basis. I spent some time explaining this to the patient, the etiology of her anemia. At the moment, the patient is also status post packed RBCs transfusion for symptomatic anemia. In the meantime, I am going to rule out the possibility of hemolysis which is very unlikely with reticulocyte count, LDH, and haptoglobin. I suspect her anemia is hypoproliferative due to bone marrow suppression. We will also check serum protein electrophoresis and quantitative immunoglobulin. I hope the patient will continue erythropoietin therapy after discharge from the hospital. If she cannot get the Procrit with Nephrology, then we will be happy to provide her with that support at our office. I would like to thank Dr. Albarran for giving us the opportunity to be involved in the care of this pleasant patient. Dictated by... Tommy Rachel M.D., Ph.D. SIMONE/anton TD: 06/03/2017 03:28 JOB #: [id number] CONSULTATION REPORT Page 1 of 1 X X CONSULTATION REPORT
--- NOTE | ~2017-05-25 | CT4 ---
[facility] A Service of [facility] RADIOLOGY TEXT RESULTS PATIENT: CECY PETE LOCATION: [facility] 567-01 : [birth year] UNIT #: [id number] AGE: [address]: Savannah Albarran MD SEX: F ORDER DR: [id number] [facility] [address] [place], [place] [address] [id number] I MR#: [id number] Acc #: [id number] NAME: CECY PETE : 1955 SEX: F STUDY DATE/TIME: 05/30/2017 20:51 UNIT: [facility] ROOM: [facility] STUDY DESCRIPTION: CT Abd and Pelv Wo Cont Attending Physician: Savannah Albarran M.D. Ordering Physician: Bib Hdez M.D. Primary Care Physician: Yelena Vazquez M.D. MEDICAL IMAGING REPORT This report is preliminary unless electronic signature is present EXAM Abdomen and pelvis CT without contrast HISTORY Nausea with upper abdominal pain for the past several months. TECHNIQUE Axial images were obtained without contrast. Comparison to a previous CT from 02/15/2017. This CT exam was performed with one or more of the following radiation dose reduction techniques: automatic control, adjustment of mA and/or kV according to patient size, and iterative reconstruction. FINDINGS There is a small right pleural effusion and there are consolidative changes at both lung bases worse on the right than on the left. The effusion was present on the previous CT from 02/15/2017. The infiltrate at the left base has worsened. This could potentially represent an active process such as pneumonia or even pulmonary infarction in the appropriate clinical setting. In the abdomen the liver, spleen and pancreas are normal in size. The kidneys and adrenals are unremarkable. No evidence of hydronephrosis. Large amount of stool is seen throughout the colon consistent with constipation. This is most prominent in the ascending colon and cecum. The small bowel pattern is unremarkable. In the pelvis there is no evidence of adenopathy, mass or fluid collection. Generalized subcutaneous edema is seen over the abdominal wall and upper legs. IMPRESSION [facility] A Service of [facility] RADIOLOGY TEXT RESULTS PATIENT: LOCATION: [facility] 567-01 : [birth year] UNIT #: [id number] AGE: [address]: Savannah Albarran MD SEX: F ORDER DR: 1. Increased consolidation at the right lung base compared to a chest CT from 02/15/2017 with no change in right pleural fluid. This infiltrate is nonspecific. It is more prominent than on the previous exam. 2. No acute or inflammatory changes in the abdomen or pelvis. There is increase stool throughout the colon consistent with constipation but there is no evidence of small bowel obstruction. Of note is a generalized edema subcutaneously over the abdominal wall and upper legs. Dictated by... Dave Edwards M.D. THIS IS AN ELECTRONICALLY VERIFIED REPORT Dave Edwards M.D. at 06/02/2017 7:13 AM CHIKIS/donny TD: 05/31/2017 23:57 JOB #: [id number] MEDICAL IMAGING REPORT Page 1 of 1 COPY
--- NOTE | ~2017-05-25 | CR72 ---
[facility] A Service of [facility] RADIOLOGY TEXT RESULTS PATIENT: KINGFEBRUARY LOCATION: [place] : 59 UNIT #: [id number] AGE: [address]: Belle Martinez MD SEX: F ORDER DR: [id number] [facility] [address] [place], [place] [address] [id number] E MR#: [id number] Acc #: [id number] NAME: CECY PETE : 1955 SEX: F STUDY DATE/TIME: 05/25/2017 12:35 UNIT: [facility] ROOM: STUDY DESCRIPTION: CR Chest Single View Portable Attending Physician: Belle Martinez M.D. Ordering Physician: Belle Martinez M.D. Primary Care Physician: Yelena Vazquez M.D. MEDICAL IMAGING REPORT This report is preliminary unless electronic signature is present EXAM Portable chest, 05/25/2017 COMPARISON 05/22/2017 HISTORY Shortness of air for 3 days. FINDINGS This portable view of the chest shows mild cardiomegaly. There is a calcified granuloma in the right lower lobe. There is mild interstitial prominence which is stable. There are no focal infiltrates. Dictated by... Moi Barraza M.D. THIS IS AN ELECTRONICALLY VERIFIED REPORT Moi Barraza M.D. at 05/25/2017 3:30 PM [place] TD: 05/25/2017 15:27 JOB #: [id number] MEDICAL IMAGING REPORT Page 1 of 1 COPY
--- NOTE | ~2017-05-25 | CO ---
Unit #: [id number] #: [id number] Patient: KINGFEBRUARY [id number] [facility] [address] [place], [place] [address] [id number] I MR#: [id number] NAME: KING FEBRUARY ROOM: CICCU3 Age: 61 Sex: F Admission Date: 05/25/2017 : 1955 Attending Physician: Savannah Albarran M.D. Primary Care Physician: Yelena Vazquez M.D. CONSULTATION REPORT REASON FOR CONSULTATION REQUEST Consult Dr. Suarez for heart failure. HISTORY OF PRESENT ILLNESS Mrs. Mckeon is a 61-year-old female, seen in room CCU 19 at [facility]. She is status post PEA arrest, likely respiratory in 02/2017. She has no known coronary disease documented by cardiac catheterization in 2008. She has treated sleep apnea. She is admitted with worsening diastolic congestive heart failure. Ejection fraction was 70% at the time of her last admission, discharged on 03/19/[address] Albarran. There was 1 to 2+ TR at that time. She is admitted with progressive shortness of breath and abdominal swelling as well as orthopnea. She states that she uses her CPAP every night. In reviewing her medications, she appears not to have taken her Bumex. She is on hydrochlorothiazide. Review of her weight showed that today's weight is 184 pounds; on 05/21/2017, it was 180 pounds, and she weighed around 200 pounds on 02/22. One of her weights is listed as 124 pounds on 03/15. Thus, it appears that she is at least stable, perhaps a little bit below what she was weighing in February. However, in January, her weights were between 158 and 169 pounds. She reports no edema. PAST MEDICAL HISTORY 1. Acute on chronic respiratory failure. 2. PEA in 02/2017, likely respiratory. 3. Acute on chronic diastolic CHF, EF 70%, 1 to 2+ TR. 4. Chronic renal failure, stage 3. 5. Anemia. 6. No significant coronary disease, cardiac cath, 2008. 7. Dyslipidemia. 8. Hypertension. 9. Obstructive sleep apnea, treated. 10. COPD. 11. Diabetes. 12. Moderate obesity. 13. Moderate protein-calorie malnutrition. MEDICATIONS Unit #: [id number] #: [id number] Patient: CECY MCKEON Vitamin B12, Imdur 20 mg b.i.d., Glucotrol 5 mg daily, Percocet 5/325 q.4 hours, iron, Levemir 10 units, hydralazine 100 mg t.i.d., Lipitor 20 mg q.h.s., Colace 100 mg t.i.d., milk of magnesia, Bumex, Lopressor 100 mg b.i.d., Neurontin, mini nebs, Dulera. PAST SURGICAL HISTORY Cardiac cath in 2008, cholecystectomy, , ovarian tumor. ALLERGIES Levaquin and tramadol. SOCIAL HISTORY Continues to smoke half pack cigarettes per day. No alcohol. Cared for by her daughters, refused rehab. REVIEW OF SYSTEMS Difficult to get review of systems, but there were no significant pertinent positives. The patient is very short of breath. PHYSICAL EXAMINATION GENERAL: Pleasant, alert, in no acute distress. VITAL SIGNS: Weight 184 pounds as noted above, dry weight probably around 160 pounds. Height 5 feet 2 inches, BMI 33, blood pressure initially 224/78, currently 147/50, respiratory rate is 20, heart rate is 90 and regular. SKIN: Warm and dry. No xanthelasma. MUSCULOSKELETAL: Cannot move her neck very freely. NEUROLOGICAL: Appropriate mood and affect. Alert and oriented x3. HEENT: Pupils equal, round and reactive. No oral cyanosis. No icterus. NECK: Loud right carotid bruit. No left carotid bruit heard. Thyroid is normal in size and texture without masses or tenderness. CHEST: Clear to auscultation with no rales or wheezes. Good effort. CARDIAC: Grade 2/6 aortic outflow murmur. ABDOMEN: No hepatosplenomegaly, masses or tenderness. Normal bowel sounds. No abdominal bruits heard. EXTREMITIES: No clubbing, cyanosis or edema. Excellent posterior tibial and dorsalis pedis pulses. DIAGNOSTIC STUDIES IMAGING STUDIES: ECG shows no acute ST changes. LABORATORY RESULTS: Creatinine is 1.9, with baseline creatinine of 2.3, potassium is 4.8. Total protein 7.7, albumin 3.3. Total cholesterol in February 163, triglycerides 102, HDL 50. Hemoglobin is 8.7, white blood count 10.8, platelet count 145,000. IMPRESSION 1. Acute on chronic diastolic congestive heart failure. We will increase the Bumex dose. 2. Treated sleep apnea. 3. Mild obesity. 4. No coronary artery disease; catheterization in 2008. 5. Probable high salt diet. 6. Medication nonadherence, not taking Bumex. 7. Chronic kidney disease, stage 3. 8. Right carotid bruit. 9. Anemia, significant, but actually improved compared to 02/2017 when her hemoglobin was closer to 7.8 on average. Unit #: [id number] #: [id number] Patient: KINGFEBRUARY RECOMMENDATIONS 1. Increase Bumex. 2. No need to check an echo. It was done recently. We will get the old echo results for the chart. 3. Instructed on 2 g sodium diet. 4. Daily careful weights. Thank you very much for this consultation. The patient will be followed by Dr. Suarez's service, whom she saw in the past. Dictated by... Juan C Portillo M.D. TRENT/anton TD: 05/26/2017 05:23 JOB #: [id number] CONSULTATION REPORT Page 1 of 1 X Juan C Portillo MD X CONSULTATION REPORT
--- NOTE | ~2017-05-25 | CO ---
Unit #: [id number] #: [id number] Patient: [id number] [id number] [place], [place] [address] [id number] I MR#: [id number] NAME: KING FEBRUARY ROOM: 567 Age: 61 Sex: F Admission Date: 05/25/2017 : 1955 Attending Physician: Savannah Albarran M.D. Primary Care Physician: Yelena Vazquez M.D. CONSULTATION REPORT REASON FOR CONSULTATION Anemia and Hemoccult-positive stool. HISTORY OF PRESENTING ILLNESS Ms. Mckeon is a 61-year-old female with multiple medical problems. She is a diabetic. She has chronic renal disease and nephrotic syndrome and also with chronic respiratory failure and sleep apnea. She was found to be severely anemic with a hemoglobin of 7.1 as well as Hemoccult-positive stool, and I was consulted. The patient has no previous history of upper endoscopy or GI bleeding or liver disease. She has no nausea, vomiting, or hematemesis. She is chronically constipated; however, no blood in the stool or black stools. She has not had a colonoscopy in the past or upper endoscopy for the matter. She is on Coumadin chronically. PAST MEDICAL HISTORY Significant for chronic respiratory failure, chronic congestive heart failure, COPD, diabetes mellitus, sleep apnea. She is status post cholecystectomy. SOCIAL HISTORY Smoker. Continues to smoke. Denies alcohol. Denies drugs. MEDICATIONS At home and hospital, reviewed. REVIEW OF SYSTEMS A complete 10-point review of systems was obtained which is negative other than as mentioned above. PHYSICAL EXAMINATION VITAL SIGNS: Stable. Blood pressure 130/57, respirations 16, pulse of 80. GENERAL: Appears weak, but no shortness of breath at rest. HEENT: Oral mucosa moist. NECK: No JVD. No lymphadenopathy. CHEST: Decreased breath sounds. Few scattered rhonchi. CARDIOVASCULAR: Regular rate and rhythm. No murmurs. ABDOMEN: Soft, nontender, and nondistended. EXTREMITIES: Without clubbing, cyanosis, or edema. NEUROLOGIC: Intact grossly. Detailed neuro examination defer to primary team. DIAGNOSTIC STUDIES Unit #: [id number] #: [id number] Patient: LABORATORY RESULTS: Hemoglobin of 7.1. INR of 2.8. BUN of 34, creatinine of 1.9, and potassium of 5.5 this morning. LFTs were normal. ASSESSMENT AND PLAN 1. The patient with severe iron-deficiency anemia, on iron replacement as was on Aranesp at this point. She is Hemoccult positive. Her brother had colon cancer. She needs panendoscopy for GI evaluation for anemia and plan on doing an upper endoscopy tomorrow if the INR is corrected and then the colonoscopy in another few days once she is medically more stable. Risks and benefits were discussed with the patient. She is agreeable and wants to proceed. 2. Chronic respiratory failure. 3. Chronic kidney disease, nephrotic syndrome. 4. Diabetes mellitus. 5. Chronic Coumadin therapy, on hold. Thank you, Dr. Albarran for this interesting consult. We will follow along. Dictated by... Page Joel/anton TD: 06/10/2017 16:55 JOB #: [id number] CONSULTATION REPORT Page 1 of 1 X Khadar Santana MD CONSULTATION REPORT
--- NOTE | ~2017-05-25 | FU ---
[facility] Nutrition Therapy DATE: 06/04/17 Patient: CECY PETE Physician: KRISTIE Address: [address] Room/Bed: [address] [place] [address], Zip: [place] [address] Admit Date: 05/25/17 Date of : [birth year] Height: 5 2 Weight: 197 89.4 NUTRITION MONITORING/FOLLOW-UP: Reason: Follow-up, LOS Anthropometrics: Ht: 62" Wt: 180#-197# BMI: 32.9-36 IBW: 110 %IBW: 164%-179% Labs: K+: 6.1, Gluc: 164, BUN: 92, Creat: 2.9, Ca++: 8.2, Alb: 2.8, Phos: 6.2, A1C: 7.0, Lip: 55, GFR: 19.7 Meds: novoLOG, Levemir, Calcium gluconate, Bumetanide, Rocaltrol, Synthroid, SOLU-medrol, Zofran, NaCl I&O's: BM 06/03 Skin: Bruising BUE; Trace edema BLE; Fungal infection- groiny; Healed scars- chest/BLE; Mepilex- coccyx Assessment: Chart reviewed, events noted. Pt admitted for CHF on 05/25. Pt is on a CC diet. Per wall chart, pt consuming 100% of meals. Pt states eating well while here at hospital. RD spoke to patient at bedside as a follow-up to diet education given on 05/31. Pt reports that she tries to eat healthy, but money limits her towards the end of each month. Pt states that she does not cook with salt and tries to use substitutes like herbs and seasonings. Pt has had prior visits with RD's at [facility]. Pt's weight has fluctuated between 184#-197# this visit. Pt reports no other questions at this time. RD to remain available and will follow-up per protocol. Dx: Altered lab values R/T current medical condition, PMH AEB K+:6.1, Ca++: 8.2, Phos: 6.2, Gluc: 164, Alb: 2.8, GFR: 19.7, BUN: 92, Creat: 2.9. New Dx: Altered nutrient utilization r/t PMH aeb need for a therapeutic diet order. Intervention: Follow-up diet education Monitoring, Evaluation and Goals: 1. Labs WNL. 2. MNT; encourage compliance of diet order and disease Recommendations: 1. Continue to encourage compliance of diet order 2. Continue to weigh q 3 days for monitoring purposes, pt to have CHF 3. Continue to monitor labs. 4. Add MVI w/mineral to current medication regimen. [facility] Nutrition Therapy DATE: 06/04/17 Patient: CECY PETE Physician: KRISTIE Address: [address] [place] [address] Room/Bed: [address] [place] [address], Zip: [place] [address] Admit Date: 05/25/17 Date of : [birth year] Height: 5 2 Weight: 197 89.4 Status: Mild nutrition status Respectfully, Jessi Sapp, Pattern Setter Linden Bowman, RD, LD [employer] [facility] cc: client file
--- NOTE | ~2017-05-25 | CO ---
Unit #: [id number] #: [id number] Patient: YANCI [id number] [place] [id number] [facility]. [place], [place] [address] [id number] I MR#: [id number] NAME: KING FEBRUARY ROOM: CICCU3 Age: 61 Sex: F Admission Date: 05/25/2017 : 1955 Attending Physician: Savannah Albarran M.D. Primary Care Physician: Yelena Vazquez M.D. Consultation Date: 05/26/2017 CONSULTATION REPORT REASON FOR CONSULT ICU management. CHIEF COMPLAINT Shortness of breath. HISTORY OF PRESENT ILLNESS This is a pleasant 61-year-old female with past medical history significant for diabetes, hypertension and chronic kidney disease who presented to the emergency room with progressive shortness of breath and productive cough of greenish sputum and fever. Apparently the patient has had multiple recent admissions for various reasons; most recent was in March 2017. The patient denied any chest pain, nausea, vomiting or diarrhea. PAST MEDICAL HISTORY 1. Chronic hypercarbic, hypoxic respiratory failure. 2. Chronic diastolic congestive heart failure. 3. Chronic kidney disease. 4. Iron deficiency anemia. 5. COPD. 6. Diabetes. 7. Mild aortic regurgitation. 8. Xcxm-az-ytgjtczs tricuspid regurgitation. 9. Moderate protein malnutrition. 10. Obesity. PAST SURGICAL HISTORY 1. Cardiac cath. 2. Cholecystectomy. 3. . 4. History of ovarian tumor status post removal. ALLERGIES Levaquin and tramadol. HOME MEDICATIONS 1. Ferrous sulfate. 2. Percocet. 3. Norvasc. 4. Lopressor. 5. Hydralazine. 6. Isosorbide mononitrate. Unit #: [id number] #: [id number] Patient: YANCI 7. Vitamin B12. 8. Glucotrol. 9. Prednisone. 10. Lasix. SOCIAL HISTORY The patient continues to smoke about 1/2 pack of cigarettes daily, and she has been doing so for at least 30 years. No history of alcohol or drug abuse. REVIEW OF SYSTEMS Twelve-point review of systems was obtained and was negative except for what was mentioned in the HPI. PHYSICAL EXAMINATION GENERAL: The patient is on BiPAP. VITAL SIGNS: Blood pressure 146/69, respiratory rate 18, O2 saturation 96%. HEENT: Atraumatic, normocephalic. PERRLA, EOMI. NECK: Supple. No JVD. No lymphadenopathy. CHEST: Decreased breath sounds bilaterally with fine rhonchi at the bases. HEART: S1, S2 with positive systolic murmur. ABDOMEN: Soft, nontender. Bowel sounds positive. No hepatosplenomegaly. EXTREMITIES: Trace edema. SKIN: No rashes. 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 No focal motor/sensory deficits. LABS AND OTHER TESTS LABS: ABG - 7.30/50/149. Creatinine 1.9, CO2 25. White blood count 10.8. IMAGING TESTS: Reviewed and noted by me. ASSESSMENT 1. Acute on chronic hypoxic, hypercarbic respiratory failure. 2. Acute on chronic diastolic congestive heart failure. 3. Acute on chronic kidney disease. 4. COPD exacerbation. 5. Rule out pneumonia. 6. Diabetes. 7. Hypertension. 8. History of PE diagnosed recently at [facility] on VQ scan. PLAN 1. Will continue the patient on BiPAP and we will wean as tolerated. 2. Lovenox (1) dose with Coumadin until INR is therapeutic. 3. Bronchodilator and mucolytics. 4. Will decreased IV steroid due to history of diabetes. 5. The patient was started on antibiotics. Will obtain status post culture and procalcitonin. 6. IV diuretics per cardiology and renal. 7. Physical therapy evaluation. 8. Evaluation for placement. NOTE: Critical care time spent on this patient was 31 minutes. Dictated by... Unit #: [id number] #: [id number] Patient: CECY PETE Page Lopez TD: 05/26/2017 10:53 JOB #: [id number] CONSULTATION REPORT Page 1 of 1 X INOCENTE WOOTEN MD CONSULTATION REPORT
--- NOTE | ~2017-05-25 | CR72 ---
[facility] A Service of [facility] RADIOLOGY TEXT RESULTS PATIENT: LOCATION: [facility] 567-01 : [birth year] UNIT #: [id number] AGE: [address]: Savannah Albarran MD SEX: F ORDER DR: [id number] [facility] [address] [place], [place] [address] [id number] I MR#: [id number] Acc #: [id number] NAME: KING FEBRUARY : 1955 SEX: F STUDY DATE/TIME: 05/26/2017 3:36 [facility] STUDY DESCRIPTION: CR Chest Single View Portable Attending Physician: Savannah Albarran M.D. Ordering Physician: Tommy Cherry M.D. Primary Care Physician: Yelena Vazquez M.D. MEDICAL IMAGING REPORT This report is preliminary unless electronic signature is present EXAM Chest x-ray 05/26/2017 HISTORY 1-day history of shortness of air, chills and cough. TECHNIQUE AP portable chest x-ray. FINDINGS Stable moderate cardiomegaly. Pulmonary venous redistribution and diffusely prominent interstitial marking suggest potential mild vascular congestion, although this is unchanged since 05/25/2017 and 05/21/2017. More dense opacity is seen in the peripheral right lung base today which may represent developing pulmonary infiltrate or pleural effusion. The remainder of the exam is negative and unchanged. Benign calcified granulomas in the right hilar region. IMPRESSION 1. Cardiomegaly with mild vascular congestion. 2. Developing infiltrate or effusion in the peripheral right lung base. Dictated by... Jimmie Ocampo M.D. THIS IS AN ELECTRONICALLY VERIFIED REPORT Jimmie Ocampo M.D. at 05/26/2017 8:56 PM DALE/yunior TD: 05/26/2017 09:38 JOB #: [id number] [facility] A Service of [facility] RADIOLOGY TEXT RESULTS PATIENT: CECY PETE LOCATION: [facility] 567-01 : [birth year] UNIT #: [id number] AGE: [address]: Savannah Albarran MD SEX: F ORDER DR: MEDICAL IMAGING REPORT Page 1 of 1 COPY
--- NOTE | ~2017-05-25 | US78 ---
[facility] A Service of [facility] RADIOLOGY TEXT RESULTS PATIENT: KINGFEBRUARY LOCATION: [facility] 567-01 : [birth year] UNIT #: [id number] AGE: [address]: Savannah Albarran MD SEX: F ORDER DR: [id number] [facility] [address] [place], [place] [address] [id number] I MR#: [id number] Acc #: [id number] NAME: KING FEBRUARY : 1955 SEX: F STUDY DATE/TIME: 05/27/2017 18:35 UNIT: [facility] ROOM: [facility] STUDY DESCRIPTION: US Kidney Duplex Complete Attending Physician: Savannah Albarran M.D. Ordering Physician: Nancy Gutierrez M.D. Primary Care Physician: Yelena Vazquez M.D. MEDICAL IMAGING REPORT This report is preliminary unless electronic signature is present EXAM Renal sonogram with lee-scale, color-flow, and Doppler spectral waveform analysis. HISTORY Stage 3 chronic kidney disease and hypertension. Diabetes. TECHNIQUE Ultrasound evaluation of the kidneys was performed with lee-scale, color-flow, and Doppler spectral waveform analysis. FINDINGS No hydronephrosis is seen on either side. Flow velocities were calculated in the renal arteries and aorta. The renal aortic ratio is 1.2 on the right 1.3 on the left and this is within normal limits. Peak systolic velocity in the right renal artery is 111 cm/sec and on the left side 122 cm/sec. IMPRESSION Normal renal aortic ratios. No evidence of renal artery stenosis by ultrasound criteria. No evidence of obstructive uropathy. Dictated by... Dave Edwards M.D. THIS IS AN ELECTRONICALLY VERIFIED REPORT Dave Edwards M.D. at 05/29/2017 7:08 AM CHELSEAF/bianka TD: 05/28/2017 09:25 JOB #: [id number] [facility] A Service of [facility] RADIOLOGY TEXT RESULTS PATIENT: KINGFEBRUARY LOCATION: [facility] 56-01 : [birth year] UNIT #: [id number] AGE: [address]: Savannah Albarran MD SEX: F ORDER DR: MEDICAL IMAGING REPORT Page 1 of 1 COPY
--- NOTE | ~2017-05-25 | OR ---
Unit #: [id number] #: [id number] Patient: [id number] [address] [place], [place] [address] [id number] I MR#: [id number] NAME: CECY PETE ROOM: 567 Date of Procedure: 06/12/2017 Admission Date: 05/25/2017 Surgeon: Khadar Santana M.D. : 1955 Attending Physician: Savannah Albarran M.D. Primary Care Physician: Yelena Vazquez M.D. OPERATIVE REPORT PROCEDURE PERFORMED Colonoscopy with snare polypectomy. INDICATIONS FOR PROCEDURE The patient with severe anemia, Hemoccult-positive stool, undergoing colonoscopy for evaluation. MEDICATIONS Monitored anesthesia. POSTOPERATIVE FINDINGS 1. Two polyps, one in ascending, one in transverse, both snared and sent for histopathology. 2. Rest of the colonic exam was normal. No evidence of any acute bleeding or stigmata of recent bleeding was seen. 3. Prep was poor, leading to some areas being poorly visualized. PLAN Follow up on pathology report. Repeat colonoscopy in 5 years. DESCRIPTION OF PROCEDURE The patient was explained of the procedure, risks, and benefits along with risks and benefits of anesthesia. She was brought to the endoscopy room. Propofol anesthesia was given. Rectal exam was done, which was normal. Colonoscope was lubricated, passed up the rectum, advanced under direct vision all the way to cecum. Cecum was identified by ileocecal valve and appendiceal orifice. Two polyps seen as described were snared and sent for histopathology. I retroflexed in the rectum, small hemorrhoids seen. Scope was gently pulled out. She tolerated it well. No major complications were seen. Dictated by... Page Joel/anton TD: 06/13/2017 06:21 JOB #: [id number] CC: Khadar Santana M.D. Unit #: [id number] #: [id number] Patient: OPERATIVE REPORT Page 1 of 1 X Khadar Santana MD PROCEDURE OPERATIVE NOTE
--- NOTE | ~2017-05-25 | EKG ---
PATIENT: CECY PETE UNIT #: [id number] Ventricular Rate: 81 BPM Atrial Rate: 81 BPM P-R Interval: 130 ms QRS Duration: 82 ms Q-T Interval: 384 ms QTC Calculation(Bezet): 446 ms P [place]: 73 degrees Calculated R [place]: 137 degrees Calculated T [place]: 76 degrees Diagnosis Line: Normal sinus rhythm Diagnosis Line: Right axis deviation Diagnosis Line: Nonspecific ST abnormality Diagnosis Line: Abnormal ECG Diagnosis Line: When compared with ECG of 21-MAY-2017 12:58, Diagnosis Line: No significant change was found Diagnosis Line: Confirmed by ANDREEA BORREGO MD ([id number]) on 05/25/2017 Diagnosis Line: 6:05:53 PM INTERPRETING MD: ELMO JEFF
--- NOTE | ~2017-05-25 | US38 ---
[facility] A Service of [facility] & [facility] RADIOLOGY TEXT RESULTS PATIENT: CECY PETE LOCATION: [facility] 567-01 : [birth year] UNIT #: [id number] AGE: [address]: Savannah Albarran MD SEX: F ORDER DR: [id number] [facility] [address] [place], [place] [address] [id number] I MR#: [id number] Acc #: [id number] NAME: CECY PETE : 1955 SEX: F STUDY DATE/TIME: 05/26/2017 19:30 UNIT: [facility] ROOM: [facility] STUDY DESCRIPTION: US Carotid W/Doppler Unilatera Attending Physician: Savannah Albarran M.D. Ordering Physician: Juan C Portillo M.D. Primary Care Physician: Yelena Vazquez M.D. MEDICAL IMAGING REPORT This report is preliminary unless electronic signature is present EXAM Carotid Doppler bilateral 05/26/2017 HISTORY Right-side carotid bruit on physical examination today. Syncope, loss of balance and coordination today with blurred vision. Benign essential hypertension, weakness in bilateral legs. FINDINGS Mosley-scale carotid artery images were obtained as well as Doppler waveform spectral analysis and color flow Doppler imaging. The examination was interpreted according to NASCET criteria. There is no hemodynamically significant stenosis in either internal carotid artery. Peak systolic velocity in the right and left internal carotid arteries was 120 cm/sec and 80 cm/sec respectively. Peak velocity in the right common and external carotid arteries was 80 cm/sec and 177 cm/sec respectively suggesting a degree of stenosis in the right external carotid artery. Peak velocity in the left common and external carotid arteries was 73 cm/sec and 34 cm/sec respectively. Antegrade blood flow is seen in both vertebral arteries. There is mild plaque bilaterally. IMPRESSION 1. No hemodynamically significant stenosis in either internal carotid artery. 2. Antegrade blood flow in both vertebral arteries. 3. Elevated peak systolic velocity in the right external carotid artery suggesting a degree of stenosis. Dictated by... Layton Yoder M.D. THIS IS AN ELECTRONICALLY VERIFIED REPORT ST[facility]. [facility] A Service of [facility] & [facility] RADIOLOGY TEXT RESULTS PATIENT: LOCATION: [facility] 567-01 : [birth year] UNIT #: [id number] AGE: [address]: Savannah Albarran MD SEX: F ORDER DR: Layton Yoder M.D. at 05/27/2017 2:16 PM ALFREDA/gaby TD: 05/27/2017 10:19 JOB #: [id number] MEDICAL IMAGING REPORT Page 1 of 1 COPY
--- NOTE | ~2017-05-25 | CO ---
Unit #: [id number] #: [id number] Patient: [id number] [facility] [address] [place], [place] [address] [id number] Oralia MR#: [id number] NAME: KING FEBRUARY ROOM: CICCU3 Age: 61 Sex: F Admission Date: 05/25/2017 : 1955 Attending Physician: Savannah Albarran M.D. Primary Care Physician: Yelena Vazquez M.D. Consultation Date: 05/25/2017 CONSULTATION REPORT REASON FOR CONSULTATION Chronic kidney disease, stage 3. HISTORY OF PRESENT ILLNESS Ms. Mckeon is a 61-year-old female with a known history of longstanding diabetes and hypertension, who was admitted to the emergency room for shortness of breath. I actually saw her back in March for a similar presentation and you can review my note there as well. Evaluation at that time, did show nephrotic range proteinuria, but she was not on an LENIN or an ARB due to issues with hyperkalemia. The patient's initial blood pressure here in the emergency room today was 224/78, which is likely contributing to her congestive heart failure. The patient has been placed on a nitroglycerin drip and is getting IV diuretics. Overall, she is a poor historian. She does state that she has been in and out of both the hospital and rehab over the last several months, details are unclear. Nursing here in ER states that she had been at [facility] recently, but apparently refused admission for some reason. She does have a history of PEA arrest back in 02/2017. The patient feels like she has gained 20 to 30 pounds, however, the weights here at [facility] are not consistent with that. She denies any swelling. No urinary complaints. No NSAID use. PAST MEDICAL HISTORY Significant for chronic kidney disease stage 3, diastolic congestive heart failure, COPD with chronic oxygen, hypertension, long-standing diabetes with proteinuria, iron-deficiency anemia, tricuspid regurgitation, chronic pain syndrome, fibromyalgia, and hypothyroidism. PAST SURGICAL HISTORY She has had previous cardiac cath, cholecystectomy, , and history of ovarian tumor removal. HOME MEDICATIONS According to the med rec sheet are as follows; iron tablet b.i.d., glipizide 5 mg p.o. before breakfast, Coumadin daily, Lopressor 50 mg b.i.d., Colace 100 mg t.i.d., Synthroid 50 mcg a day, Imdur 20 mg b.i.d., hydralazine 100 mg t.i.d., Lipitor 20 mg at bedtime, hydrochlorothiazide 25 mg daily, Humalog insulin, Levemir insulin, and Bumex 1 mg b.i.d. ALLERGIES She has allergies to Levaquin and tramadol listed. FAMILY HISTORY Significant for diabetes. No family history of kidney disease requiring dialysis. Unit #: [id number] #: [id number] Patient: CECY MCKEON SOCIAL HISTORY The patient has been a long-term smoker, but says that she is not smoking actively at this time. No alcohol or drug abuse. The patient does have history of immobility syndrome. REVIEW OF SYSTEMS A complete 12-point review of systems was completed with the above findings. In addition, she denies any headaches to me at this time. No dizziness. No nosebleed, sore throat, or earache. She denies chest pain or palpitations. No hemoptysis. No nausea, vomiting, or diarrhea, but she is "spitting up." No bright red blood per rectum or melena. No dysuria or hematuria. No rashes or itching. No flank pain. No night sweats or hot flashes. No intolerance to heat or cold. No bleeding issues. Unless otherwise indicated, the review of systems was negative. PHYSICAL EXAMINATION VITAL SIGNS: The patient is afebrile, pulse 90, respiratory rate 20, blood pressure down to 148/48 from a high of 224/78. GENERAL: This is a 61-year-old female, who appears weak and short of breath, again is a poor historian and talks in shortened phrases due to her breathing. HEENT: Head is atraumatic and normocephalic. Eyes show pale conjunctivae with no scleral icterus. No nasal drainage or nosebleed. Oropharynx is moist. No thrush. She does have a narrow posterior pharyngeal airway. NECK: Thick with no rigidity. HEART: Regular rate and rhythm with soft murmur present. No gallop or rub appreciated. LUNGS: Bilateral rhonchi with no wheezing. Breathing is mildly labored at rest. ABDOMEN: Protuberant, soft, nontender. Bowel sounds are present. EXTREMITIES: No lower extremity cyanosis or pitting edema. SKIN: Dry with no rashes. MUSCULOSKELETAL: No CVA tenderness to palpation. NEUROLOGICAL: Noteworthy for generalized weakness without focal deficit. LYMPHATIC: There is no neck or cervical lymphadenopathy. PSYCHIATRIC: Mood appears depressed with a flat affect. DIAGNOSTIC STUDIES IMAGING STUDIES: Chest x-ray done this afternoon showed mild interstitial prominence. No focal infiltrates. Kidney ultrasound on 03/15 showed echogenic kidneys with no solid masses or hydronephrosis. LABORATORY RESULTS: Troponin negative. Chemistry; sodium 143, potassium 4.8, chloride 110, bicarb 25, glucose 166, BUN 34, creatinine 1.9, albumin was low at 3.3, magnesium was 1.8. Alcohol negative. Drug screen was positive for opiates. BNP was 984. Lactic acid 0.6. INR 1.1. CBC showed a white count of 10, hemoglobin 8.7, hematocrit 27, platelet count 145 with no peripheral eosinophilia. On 05/21/2017, blood cultures from when she was here in the emergency room were negative. Urinalysis at that time, did show 3+ protein. Review of previous labs; urine protein to creatinine ratio back in 03/2017 was almost 5 g. This creatinine of 1.9 looks to be about her baseline over the last several months. PTH in March was 450. ASSESSMENT AND PLAN Unit #: [id number] #: [id number] Patient: 1. Chronic kidney disease, stage 3. This is likely due to underlying diabetes with proteinuria and poorly controlled hypertension. I do feel like there is certainly a degree of noncompliance here with her normal INR on Coumadin and poorly controlled blood pressures. Again, overall she looks stable. We will need to monitor with diuretics that have been started. 2. Congestive heart failure, which is diastolic in nature. Chest x-ray does not look that bad and she has no peripheral edema. Her breathing issues may be more chronic obstructive pulmonary disease, obstructive sleep apnea related. Diuretics have been ordered regardless. 3. Hypertensive urgency. This has improved with nitroglycerin drip. 4. Anemia of chronic disease. I will update iron stores and replace as needed. 5. Chronic obstructive pulmonary disease with obstructive sleep apnea. 6. Diabetes with proteinuria, which is nephrotic. I will be rechecking the urine protein to creatinine ratio. She has not been placed on an LENIN inhibitor or an angiotensin receptor elaine due to previous issues with hyperkalemia. 7. History of pulseless electrical activity arrest in 02/2017. 8. Obesity and immobility. 9. Known pulmonary hypertension. 10. Questionable compliance issues. I would like to thank Dr. Albarran for this consult and the opportunity to participate in evaluation and care of Ms. Mckeon. Dictated by... Albert Bucio Jr., M.D. SANJUANA/anton TD: 05/26/2017 00:29 JOB #: [id number] CONSULTATION REPORT Page 1 of 1 X Albert Bucio MD X CONSULTATION REPORT
--- NOTE | ~2017-05-25 | FU ---
[facility] Nutrition Therapy DATE: 06/13/17 Patient: CECY PETE Physician: KRISTIE Address: [address] Room/Bed: [address] [place] [address], Zip: [place] [address] Admit Date: 05/25/17 Date of : [birth year] Height: 5 2 Weight: 198 90 NUTRITION MONITORING/FOLLOW-UP: Reason: Follow-up Admitting dx: Pt is a 61 y/o female admitted with CHF Anthropometrics: HT:62" WT:182#-198# (note fluid retention/loss) BMI:33.3-36.2 Labs: Cl-:97 Gluc:162 BUN:74 Creat:2.8 Ca++:8.2 Alb:2.8 Phos:6.1 GFR:20.6 POC:44-247 Meds: Furosemide, Colace, Florinef, Miralax, Zofran, novoLOG, Rocaltrol, Synthroid, Renvela I&O's: BM 06/13 Skin: Generalized/BLE+2 edema, redness/boil lower ABD Assessment: Chart reviewed, events noted. Pt admitted with CHF on 05/25. Elementary Special Education Teacher was able to speak with the pt at bedside. Pt reports that she is eating ~100% of her meals 3x daily and that she enjoys the food here at [facility]. Of note, the pt is on a 1500 ml fluid restriction according to the door sign. Pt states that she likes to chew on ice chips and sip water in small amounts. She reports feeling better and says her fluid accumulation is regressing. Pt seems to have a good understanding of a healthy diet, stating that she will start baking/broiling her food when she gets home. She did receive heart healthy diet education on 05/31/17 and previously at [facility]. Pt seems very receptive to diet education efforts. RD will continue to follow-up with pt per protocol. Dx: Altered lab values r/t current medical condition, PM AEB K+:6.1, Ca++:8.2, Phos:6.2, Gluc:164, Alb:2.8, GFR:19.7, BUN:92, Creat:2.9 - ACTIVE (see current labs) 2. Altered nutrient utilization r/t PMH AEB need for therapeutic diet order. - ACTIVE Intervention: See recommendations below Monitoring, Evaluation and Goals: 1. Labs WNL. - NOT MET/IN PROGRESS 2. MNT; encourage compliance of diet order and disease. - IN PROGRESS Recommendations: 1. Consider re-ordering low-potassium and 2 g sodium diet restriction in addition to pt's current CC diet. [facility] Nutrition Therapy DATE: 06/13/17 Patient: CECY PETE Physician: KRISTIE Address: [address] [place] [address] Room/Bed: [address] [place] [address], Zip: [place] [address] Admit Date: 05/25/17 Date of : [birth year] Height: 5 2 Weight: 198 90 2. Continue to encourage compliance of diet order. 3. Continue to monitor labs. 4. Continue to weight q 3 days for monitoring purposes, pt noted to have CHF. Status: Mild nutrition status RD will follow Respectfully, Jessi Sapp, Power Driven Brush Maker Linden Bowman, MS, RD, LD [employer] [facility] cc: client file
--- NOTE | ~2017-05-25 | A ---
[facility] Nutrition Therapy DATE: 05/31/17 Patient: CECY PETE Physician: KRISTIE Address: [address] Room/Bed: [address] [place] [address], Zip: [place] [address] Admit Date: 05/25/17 Date of : 59 Height: 5 2 Weight: 194 88.2 NUTRITIONAL ASSESSMENT: REASON: C/S - "ASSISTANCE WITH DM DIET" PATIENT ADMITTED FOR CHF, SOB, POSSIBLE PNA PMH: DM, HTN, CKD, CHRONIC RESPIRATORY FAILURE, CHF, COPD, ANEMIA, HLD, PE, GRIFFIN Anthropometrics: HT: 62", WT: 194#, BMI: 35.5 Labs: REVIEWED Meds: REVIEWED Assessment: PATIENT WAS SEEN FOR DM DIET EDUCATION. PATIENT ALSO HAS CHF AND CKD. SHE IS ON A CC, LOW K+, 2GM NA DIET. PATIENT IS NOTED TO BE SOMEWHAT OF A POOR HISTORIAN, SHE IS A DAILY SMOKER, AND HER TOX SCREEN WAS POSITIVE FOR OPIATES. DURING VISIT PATIENT STATED HER UBW IS 150# AND THAT SHE HAS A GOOD APPETITE. SHE HAD TRACE EDEMA TO BLE AND IS ON BUMEX. 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 THIS RD STRESSED THE IMPORTANCE OF WATCHING PATIENT'S CARBOHYDRATE AND SALT INTAKE. PATIENT SEEMED VERY EAGER TO LEARN AND FOLLOW AN APPROPRIATE DIET; HOWEVER SHE STATED SHE LOVES PASTA, RICE, AND RED WINE. IT IS UNCLEAR HOW WELL PATIENT WILL ADHERE TO A CC DIET AFTER DISCHARGE. PATIENT WAS GIVEN DIET EDUCATION MATERIALS THAT WERE LEFT AT BEDSIDE. Recommendations: 1. CONTINUE CC, LOW K+, 2GM NA DIET TOLERATED 2. CONSULT RD WITH ANY FURTHER NUTRITION QUESTIONS OR CONCERNS Respectfully, JANINA SEGURA RD, LD [facility] cc: client file
--- NOTE | ~2017-05-25 | DS ---
Unit #: [id number] #: [id number] Patient: [id number] [place], [place] [address] [id number] MR#: [id number] NAME: CECY PETE ROOM: 567 Age: 61 Sex: F Admission Date: 05/25/2017 : 1955 Discharge Date: 06/14/2017 Attending Physician: Savannah Albarran M.D. Primary Care Physician: Yelena Vazquez M.D. DISCHARGE SUMMARY ADDENDUM The patient's discharge was held yesterday because what I understood there was a need for rehab facility. Today, I have talked to the patient at length. Per the patient, she does not want to go to rehab, she would rather go home. I have discussed with the patient's daughter, Soniya, who states that the patient will have 24/7 care at home. The patient has oxygen at home, has nebulizer treatment and all the equipment. The patient is being discharged home eventually on the same medication yesterday. The patient also had a hypoglycemic episode yesterday, most likely because she was n.p.o. for the procedure. The patient has been advised to not to skip any meals and continue to check blood pressure at home three times a day or so. Discussed with Dr. Cherry. The patient will continue Coumadin, PT/INR to be done in 2 days and continue to observe closely. Rest of the instructions are as per note from 06/14/2017. DISCHARGE PHYSICAL EXAMINATION VITAL SIGNS: Today, blood pressure 132/48, respiratory rate 16, pulse is 71, temperature 98.2, oxygen saturation is 99%. HEAD: Normocephalic. CHEST: Fair air entry. Decreased at the bases. CVS: S1 and S2 positive. Regular rhythm. ABDOMEN: Soft. DISCHARGE INSTRUCTION As per discharge summary dictated earlier on 06/13/2017. Dictated by... Savannah Albarran M.D. ROSIBEL/anton TD: 06/18/2017 01:38 JOB #: [id number] Unit #: [id number] #: [id number] Patient: DISCHARGE SUMMARY Page 1 of 1 X Savannah Albarran MD DISCHARGE SUMMARY
[~2017-05-25 11:31] MED LIST changes: +BASAGLAR K100 UNIT/1 SUBQ; +BUMETANIDE1 MG PO; +COL-RITE50 MG PO; +FERROUS SULFAT324 MG PO; +HYDRALAZINE HCL50 MG PO; +HYDROCODON-ACE1 EAC7 PO; +LIPITOR20 MG PO; +TIROSINT50 MCG PO; +VITAMIN B122500 MC1 PO
[2017-05-25 12:24] LABS: POC - CKMB 3.4 ng/mL (0.0-7.9); POC - TROPONIN <0.05 ng/mL (<=0.05)
[2017-05-25 12:26] LABS: BASOPHIL% 0.2 % (0-2.5); EOSINOPHIL# 0.1 X10e3 (0-0.7); EOSINOPHIL% 0.5 % (0.0-7.0); HEMATOCRIT 27.1 % (35.0-45.0); HEMOGLOBIN 8.7 gm/dL (12.0-16.0); LYMPHOCYTE# 1.2 X10e3 (1.0-3.5); LYMPHOCYTE% 11.5 % (17.0-45.0); MEAN CELL VOLUME 87.8 FL (83-96); MEAN CORPUSCULAR HEMOGLOBIN 28.3 PG (28-34); MEAN CORPUSCULAR HGB CONC 32.2 g/dL (30-36); MEAN PLATELET VOLUME 8.2 FL (6.5-11.5); MONOCYTE# 0.6 X10e3 (0-1.0); MONOCYTE% 5.3 % (3.0-12.0); NEUTROPHIL# 8.9 X10e3 (1.5-7.1); NEUTROPHIL% 82.5 % (40-75); PLATELET COUNT 145 X10e3 (140-420); RED BLOOD COUNT 3.08 X10e (3.90-5.30); RED CELL DISTRIBUTION WIDTH 16.8 % (11.0-15.5); WHITE BLOOD COUNT 10.8 X10e3 (4.0-10.5)
[2017-05-25 12:28] LABS: DIFF IND NO
[2017-05-25 12:37] LABS: INR 1.1; PROTHROMBIN TIME (PATIENT) 11.4 SECONDS (10.0-11.7)
[2017-05-25 13:07] LABS: AMPHETAMINE NEG (NEG); BARBITURATES NEG (NEG); BENZODIAZEPINES NEG (NEG); COCAINE NEG (NEG); MARIJUANA NEG (NEG); OPIATES POS (NEG); TRICYCLIC ANTIDEPRESSANTS NEG (NEG); U METHADONE NEG (NEG)
[2017-05-25 13:10] LABS: ALBUMIN SERUM 3.3 g/dL (3.5-5.0); ALCOHOL BLOOD <5 mg/dL (0); ALKALINE PHOSPHATASE 263 U/L (32-92); ALT (SGPT) 41 U/L (10-40); AST (SGOT) 25 U/L (10-42); BILIRUBIN, DIRECT 0.1 mg/dL (0.0-0.2); BILIRUBIN,INDIRECT 0.6 mg/dL (0.0-0.9); BILIRUBIN,TOTAL 0.7 mg/dL (0.2-2.0); BLOOD UREA NITROGEN 34 mg/dL (9-23); BUN/CREATININE RATIO 17.89; CALCIUM SERUM 8.5 mg/dL (8.4-10.2); CARBON DIOXIDE 25 mmol/L (22-31); CHLORIDE 110 mmol/L (100-111); CREATININE SERUM 1.9 mg/dL (0.6-1.4); GLOM FILT RATE Estimated 32.9 mL/min (>60); GLUCOSE FASTING 166 mg/dL (70-110); MAGNESIUM 1.8 mg/dL (1.6-3.0); POTASSIUM 4.8 mmol/L (3.5-5.1); PROTEIN TOTAL SERUM 7.7 g/dL (6.0-8.3); SODIUM 143 mmol/L (135-145)
[2017-05-25 14:59] LABS: POC - CKMB 1.7 ng/mL (0.0-7.9); POC - TROPONIN <0.05 ng/mL (<=0.05)
[2017-05-25] MEDS ORDERED: FEROSUL325 MG PO (15:14)
[2017-05-25] MEDS ORDERED: GLIPIZIDE XL5 MG PO (15:15)
[2017-05-25] MEDS ORDERED: LOPRESSOR PO (15:16)
[2017-05-25] MEDS ORDERED: COUMADIN5 MG PO (15:16)
[2017-05-25] MEDS ORDERED: DOCUSATE SODIU100 MG PO (15:17)
[2017-05-25] MEDS ORDERED: TIROSINT50 MCG PO (15:17)
[2017-05-25] MEDS ORDERED: LIPITOR20 MG PO (15:18)
[2017-05-25] MEDS ORDERED: HYDRALAZINE HC100 MG PO (15:18)
[2017-05-25] MEDS ORDERED: ISOSORBIDE MONO20 M1 PO (15:18)
[2017-05-25] MEDS ORDERED: HUMALOG100 UNIT/1 (15:23)
[2017-05-25] MEDS ORDERED: HYDROCHLOROTHIA25 MG PO (15:23)
[2017-05-25] MEDS ORDERED: LEVEMIR100 UNITS/ SUBQ (15:28)
[2017-05-25] MEDS ORDERED: BUMETANIDE1 MG PO (15:29)
[2017-05-25 17:24] LABS: URINE SOURCE CLEAN CATCH
[2017-05-25 17:29] LABS: URINE APPEARANCE CLEAR; URINE BILIRUBIN NEG (NEG); URINE BLOOD TRACE (NEG); URINE COLOR YELLOW; URINE GLUCOSE NEG (NEG); URINE KETONE NEG (NEG); URINE LEUKOCYTE ESTERASE NEG (NEG); URINE NITRATE NEG (NEG); URINE PROTEIN 3+ (NEG); URINE SPECIFIC GRAVITY 1.015 (1.003-1.035); URINE UROBILINOGEN 0.2 MG/DL (NEG)
[2017-05-25 17:33] LABS: URINE BACTERIA AUWI NEG (NEGATIVE); URINE SQUAMOUS EPITHELIAL CELL OCC /[HPF]; UWBCS1 AUWI 0-2 (0-5)
[2017-05-25 17:37] LABS: CULTURE INDICATED? NO
[2017-05-25 18:04] LABS: URINE APPEARANCE CLEAR; URINE BILIRUBIN NEG (NEG); URINE BLOOD TRACE (NEG); URINE COLOR YELLOW; URINE GLUCOSE 100 MG/DL (NEG); URINE KETONE NEG (NEG); URINE LEUKOCYTE ESTERASE NEG (NEG); URINE NITRATE NEG (NEG); URINE PH 5.5 (5-8); URINE PROTEIN 3+ (NEG); URINE SPECIFIC GRAVITY 1.018 (1.003-1.035); URINE UROBILINOGEN 0.2 MG/DL (NEG)
[2017-05-25 18:06] LABS: URBCS1 AUWI 50-100 /[HPF] (0-2); URINE BACTERIA AUWI NEG (NEGATIVE); URINE SQUAMOUS EPITHELIAL CELL NONE SEEN /[HPF]; UWBCS1 AUWI 0-2 (0-5)
[2017-05-25 18:17] LABS: ARTERIAL BLD GAS O2 SATURATION 93.6 % (90.0-100.0); ARTERIAL BLOOD GAS CARBOXY HB 2.1 %sat (0.0-9.0); ARTERIAL BLOOD GAS HCO3 25.4 mmol/L; ARTERIAL BLOOD GAS PCO2 49.4 mmHg (35.0-45.0); ARTERIAL BLOOD GAS pH 7.319 (7.350-7.450)
[2017-05-25 18:18] LABS: ARTERIAL BLOOD GAS ALLEN TEST NORMAL; ARTERIAL BLOOD GAS ART SITE LEFT RADIAL; ARTERIAL BLOOD GAS DELIVERY NASAL CANNULA; ARTERIAL BLOOD GAS PO2 79.4 mmHg (80.0-100); ARTERIAL DRAW? YES
[2017-05-26 04:47] LABS: ARTERIAL BLD GAS O2 SATURATION 97.4 % (90.0-100.0); ARTERIAL BLOOD GAS CARBOXY HB 1.2 %sat (0.0-9.0); ARTERIAL BLOOD GAS HCO3 24.9 mmol/L
[2017-05-26 04:59] LABS: ARTERIAL BLOOD GAS ALLEN TEST NORMAL; ARTERIAL BLOOD GAS ART SITE RIGHT RADIAL; ARTERIAL BLOOD GAS PCO2 50.7 mmHg (35.0-45.0); ARTERIAL DRAW? YES
[2017-05-26 11:53] LABS: ALBUMIN SERUM 2.6 g/dL (3.5-5.0); BILIRUBIN,TOTAL 0.2 mg/dL (0.2-2.0); BUN/CREATININE RATIO 18.5; CALCIUM SERUM 8.1 mg/dL (8.4-10.2); GLOM FILT RATE Estimated 30.9 mL/min (>60); MAGNESIUM 1.5 mg/dL (1.6-3.0); PHOSPHOROUS 4.4 mg/dL (2.5-4.6); POTASSIUM 5.1 mmol/L (3.5-5.1); PROTEIN TOTAL SERUM 6.1 g/dL (6.0-8.3)
[2017-05-26 13:18] LABS: LEGIONELLA AG URINE NEG (NEG)
[2017-05-27 06:40] LABS: INR 1.1; PROTHROMBIN TIME (PATIENT) 12.1 SECONDS (10.0-11.7)
[2017-05-27 07:13] LABS: ALBUMIN SERUM 2.8 g/dL (3.5-5.0); BILIRUBIN,TOTAL 0.5 mg/dL (0.2-2.0); BUN/CREATININE RATIO 19.61; CALCIUM SERUM 8.2 mg/dL (8.4-10.2); CREATININE SERUM 2.6 mg/dL (0.6-1.4); GLOM FILT RATE Estimated 22.5 mL/min (>60); MAGNESIUM 2.1 mg/dL (1.6-3.0); PHOSPHOROUS 6.2 mg/dL (2.5-4.6); PROTEIN TOTAL SERUM 6.5 g/dL (6.0-8.3)
[2017-05-27 07:22] LABS: POTASSIUM 5.8 mmol/L (3.5-5.1)
[2017-05-27 14:34] LABS: CALCIUM SERUM 8.1 mg/dL (8.4-10.2); CREATININE SERUM 2.6 mg/dL (0.6-1.4); GLOM FILT RATE Estimated 22.5 mL/min (>60)
[2017-05-27 14:52] LABS: POTASSIUM 5.5 mmol/L (3.5-5.1)
[2017-05-28 06:31] LABS: HEMATOCRIT 22.7 % (35.0-45.0); HEMOGLOBIN 7.3 gm/dL (12.0-16.0); MEAN CELL VOLUME 88.2 FL (83-96); MEAN CORPUSCULAR HEMOGLOBIN 28.4 PG (28-34); MEAN CORPUSCULAR HGB CONC 32.2 g/dL (30-36); MEAN PLATELET VOLUME 8.2 FL (6.5-11.5); RED BLOOD COUNT 2.57 X10e (3.90-5.30); RED CELL DISTRIBUTION WIDTH 16.4 % (11.0-15.5); WHITE BLOOD COUNT 7.9 X10e3 (4.0-10.5)
[2017-05-28 06:50] LABS: CREATININE SERUM 2.5 mg/dL (0.6-1.4); GLOM FILT RATE Estimated 23.6 mL/min (>60); MAGNESIUM 1.7 mg/dL (1.6-3.0); POTASSIUM 4.8 mmol/L (3.5-5.1)
[2017-05-28 07:18] LABS: INR 1.1; PROTHROMBIN TIME (PATIENT) 12.4 SECONDS (10.0-11.7)
[2017-05-28 17:19] LABS: HEMATOCRIT 23.6 % (35.0-45.0); HEMOGLOBIN 7.4 gm/dL (12.0-16.0)
[2017-05-29 03:12] LABS: URINE APPEARANCE CLEAR; URINE BILIRUBIN NEG (NEG); URINE BLOOD NEG (NEG); URINE COLOR YELLOW; URINE GLUCOSE 100 MG/DL (NEG); URINE KETONE NEG (NEG); URINE LEUKOCYTE ESTERASE NEG (NEG); URINE NITRATE NEG (NEG); URINE PROTEIN 2+ (NEG); URINE SPECIFIC GRAVITY 1.013 (1.003-1.035); URINE UROBILINOGEN 0.2 MG/DL (NEG)
[2017-05-29 07:25] LABS: BUN/CREATININE RATIO 23.91; CALCIUM SERUM 8.5 mg/dL (8.4-10.2); CREATININE SERUM 2.3 mg/dL (0.6-1.4); GLOM FILT RATE Estimated 26.1 mL/min (>60); POTASSIUM 5.1 mmol/L (3.5-5.1)
[2017-05-29 08:58] LABS: HEMATOCRIT 26.7 % (35.0-45.0); HEMOGLOBIN 8.4 gm/dL (12.0-16.0); MEAN CELL VOLUME 87.5 FL (83-96); MEAN CORPUSCULAR HEMOGLOBIN 27.4 PG (28-34); MEAN CORPUSCULAR HGB CONC 31.4 g/dL (30-36); MEAN PLATELET VOLUME 9.1 FL (6.5-11.5); RED BLOOD COUNT 3.05 X10e (3.90-5.30); RED CELL DISTRIBUTION WIDTH 16.5 % (11.0-15.5); WHITE BLOOD COUNT 9.7 X10e3 (4.0-10.5)
[2017-05-29 14:58] LABS: INR 1.1; PROTHROMBIN TIME (PATIENT) 12.1 SECONDS (10.0-11.7)
[2017-05-30 14:44] LABS: HEMATOCRIT 21.8 % (35.0-45.0); MEAN CELL VOLUME 86.6 FL (83-96); MEAN CORPUSCULAR HEMOGLOBIN 27.6 PG (28-34); MEAN CORPUSCULAR HGB CONC 31.9 g/dL (30-36); MEAN PLATELET VOLUME 8.3 FL (6.5-11.5); RED BLOOD COUNT 2.51 X10e (3.90-5.30); RED CELL DISTRIBUTION WIDTH 16.2 % (11.0-15.5); WHITE BLOOD COUNT 8.6 X10e3 (4.0-10.5)
[2017-05-30 14:48] LABS: HEMOGLOBIN 6.9 gm/dL (12.0-16.0)
[2017-05-30 14:51] LABS: INR 1.1; PROTHROMBIN TIME (PATIENT) 12.1 SECONDS (10.0-11.7)
[2017-05-30 15:27] LABS: BUN/CREATININE RATIO 27.2; CREATININE SERUM 2.5 mg/dL (0.6-1.4); GLOM FILT RATE Estimated 23.6 mL/min (>60)
[2017-05-30 15:29] LABS: CALCIUM SERUM 8.3 mg/dL (8.4-10.2); POTASSIUM 4.4 mmol/L (3.5-5.1)
[2017-05-31 07:22] LABS: BUN/CREATININE RATIO 25.76; CALCIUM SERUM 8.4 mg/dL (8.4-10.2); CREATININE SERUM 2.6 mg/dL (0.6-1.4); GLOM FILT RATE Estimated 22.5 mL/min (>60); POTASSIUM 5.4 mmol/L (3.5-5.1)
[2017-05-31 07:44] LABS: HEMATOCRIT 25.1 % (35.0-45.0); HEMOGLOBIN 8.2 gm/dL (12.0-16.0); MEAN CELL VOLUME 86.9 FL (83-96); MEAN CORPUSCULAR HEMOGLOBIN 28.4 PG (28-34); MEAN CORPUSCULAR HGB CONC 32.7 g/dL (30-36); MEAN PLATELET VOLUME 8.8 FL (6.5-11.5); RED BLOOD COUNT 2.88 X10e (3.90-5.30); RED CELL DISTRIBUTION WIDTH 16.3 % (11.0-15.5); WHITE BLOOD COUNT 9.9 X10e3 (4.0-10.5)
[2017-05-31 19:47] LABS: INR 1.2; PROTHROMBIN TIME (PATIENT) 13.4 SECONDS (10.0-11.7)
[2017-06-01 06:14] LABS: HEMATOCRIT 25.4 % (35.0-45.0); HEMOGLOBIN 8.3 gm/dL (12.0-16.0); MEAN CELL VOLUME 87.1 FL (83-96); MEAN CORPUSCULAR HEMOGLOBIN 28.4 PG (28-34); MEAN CORPUSCULAR HGB CONC 32.6 g/dL (30-36); MEAN PLATELET VOLUME 8.8 FL (6.5-11.5); RED BLOOD COUNT 2.92 X10e (3.90-5.30); WHITE BLOOD COUNT 9.5 X10e3 (4.0-10.5)
[2017-06-01 06:28] LABS: INR 1.3; PROTHROMBIN TIME (PATIENT) 13.6 SECONDS (10.0-11.7)
[2017-06-01 08:21] LABS: ALBUMIN SERUM 2.8 g/dL (3.5-5.0); BILIRUBIN,TOTAL 0.4 mg/dL (0.2-2.0); BUN/CREATININE RATIO 27.6; CALCIUM SERUM 8.1 mg/dL (8.4-10.2); CREATININE SERUM 2.5 mg/dL (0.6-1.4); GLOM FILT RATE Estimated 23.6 mL/min (>60); POTASSIUM 4.7 mmol/L (3.5-5.1); PROTEIN TOTAL SERUM 6.3 g/dL (6.0-8.3)
[2017-06-02 06:18] LABS: HEMATOCRIT 27.4 % (35.0-45.0); HEMOGLOBIN 8.7 gm/dL (12.0-16.0); MEAN CELL VOLUME 88.2 FL (83-96); MEAN CORPUSCULAR HEMOGLOBIN 28.1 PG (28-34); MEAN CORPUSCULAR HGB CONC 31.8 g/dL (30-36); MEAN PLATELET VOLUME 8.3 FL (6.5-11.5); RED BLOOD COUNT 3.11 X10e (3.90-5.30); RED CELL DISTRIBUTION WIDTH 16.2 % (11.0-15.5); WHITE BLOOD COUNT 9.5 X10e3 (4.0-10.5)
[2017-06-02 06:45] LABS: CALCIUM SERUM 8.5 mg/dL (8.4-10.2); CREATININE SERUM 2.5 mg/dL (0.6-1.4); GLOM FILT RATE Estimated 23.6 mL/min (>60); INR 1.4; POTASSIUM 5.1 mmol/L (3.5-5.1)
[2017-06-03 05:18] LABS: HEMATOCRIT 24.5 % (35.0-45.0); HEMOGLOBIN 7.8 gm/dL (12.0-16.0); MEAN CELL VOLUME 88.2 FL (83-96); MEAN CORPUSCULAR HEMOGLOBIN 28.3 PG (28-34); MEAN PLATELET VOLUME 8.1 FL (6.5-11.5); RED BLOOD COUNT 2.77 X10e (3.90-5.30); RED CELL DISTRIBUTION WIDTH 16.3 % (11.0-15.5); WHITE BLOOD COUNT 9.4 X10e3 (4.0-10.5)
[2017-06-03 05:35] LABS: INR 1.6
[2017-06-03 06:03] LABS: BUN/CREATININE RATIO 33.07; CALCIUM SERUM 8.3 mg/dL (8.4-10.2); CREATININE SERUM 2.6 mg/dL (0.6-1.4); GLOM FILT RATE Estimated 22.5 mL/min (>60); POTASSIUM 5.3 mmol/L (3.5-5.1)
[2017-06-04 07:12] LABS: HEMATOCRIT 26.3 % (35.0-45.0); HEMOGLOBIN 8.3 gm/dL (12.0-16.0); MEAN CELL VOLUME 89.3 FL (83-96); MEAN CORPUSCULAR HEMOGLOBIN 28.1 PG (28-34); MEAN CORPUSCULAR HGB CONC 31.4 g/dL (30-36); MEAN PLATELET VOLUME 8.3 FL (6.5-11.5); RED BLOOD COUNT 2.94 X10e (3.90-5.30); RED CELL DISTRIBUTION WIDTH 16.8 % (11.0-15.5)
[2017-06-04 07:28] LABS: INR 1.7; PROTHROMBIN TIME (PATIENT) 18.9 SECONDS (10.0-11.7)
[2017-06-04 08:11] LABS: BUN/CREATININE RATIO 31.72; CALCIUM SERUM 8.2 mg/dL (8.4-10.2); CREATININE SERUM 2.9 mg/dL (0.6-1.4); GLOM FILT RATE Estimated 19.7 mL/min (>60)
[2017-06-04 08:18] LABS: POTASSIUM 6.1 mmol/L (3.5-5.1)
[2017-06-04 20:26] LABS: BUN/CREATININE RATIO 31.37; CREATININE SERUM 2.9 mg/dL (0.6-1.4); GLOM FILT RATE Estimated 19.7 mL/min (>60)
[2017-06-04 20:29] LABS: POTASSIUM 5.8 mmol/L (3.5-5.1)
[2017-06-05 04:55] LABS: SPE A1GLOB (PNL) 0.4 g/dL (0.2-0.3); SPE A2GLOB (PNL) 0.9 g/dL (0.5-0.9); SPE ALB (PNL) 3.1 g/dL (3.8-4.8); SPE BETA 1 GLOBULIN 0.4 g/dL (0.4-0.6); SPE BETA 2 GLOBULIN 0.4 g/dL (0.2-0.5); SPE GAMMA (PNL) 1.4 g/dL (0.8-1.7); SPETP (PNL) 6.5 g/dL (6.1-8.1)
[2017-06-05 05:34] LABS: HEMATOCRIT 23.9 % (35.0-45.0); HEMOGLOBIN 7.6 gm/dL (12.0-16.0); MEAN CORPUSCULAR HEMOGLOBIN 28.4 PG (28-34); MEAN CORPUSCULAR HGB CONC 31.9 g/dL (30-36); MEAN PLATELET VOLUME 8.5 FL (6.5-11.5); RED BLOOD COUNT 2.68 X10e (3.90-5.30); RED CELL DISTRIBUTION WIDTH 16.4 % (11.0-15.5); WHITE BLOOD COUNT 8.3 X10e3 (4.0-10.5)
[2017-06-05 06:22] LABS: BUN/CREATININE RATIO 33.21; CALCIUM SERUM 8.1 mg/dL (8.4-10.2); CREATININE SERUM 2.8 mg/dL (0.6-1.4); GLOM FILT RATE Estimated 20.6 mL/min (>60); POTASSIUM 4.8 mmol/L (3.5-5.1)
[2017-06-05 16:51] LABS: HEMATOCRIT 23.5 % (35.0-45.0); HEMOGLOBIN 7.3 gm/dL (12.0-16.0)
[2017-06-05 17:01] LABS: INR 1.9; PROTHROMBIN TIME (PATIENT) 20.4 SECONDS (10.0-11.7)
[2017-06-06 01:07] LABS: HEMATOCRIT 24.7 % (35.0-45.0); HEMOGLOBIN 7.8 gm/dL (12.0-16.0)
[2017-06-06 07:58] LABS: HEMATOCRIT 23.4 % (35.0-45.0); HEMOGLOBIN 7.4 gm/dL (12.0-16.0); MEAN CELL VOLUME 88.4 FL (83-96); MEAN CORPUSCULAR HEMOGLOBIN 27.9 PG (28-34); MEAN CORPUSCULAR HGB CONC 31.6 g/dL (30-36); MEAN PLATELET VOLUME 8.4 FL (6.5-11.5); RED BLOOD COUNT 2.65 X10e (3.90-5.30); RED CELL DISTRIBUTION WIDTH 17.2 % (11.0-15.5); WHITE BLOOD COUNT 6.6 X10e3 (4.0-10.5)
[2017-06-06 08:05] LABS: PROTHROMBIN TIME (PATIENT) 22.1 SECONDS (10.0-11.7)
[2017-06-06 08:23] LABS: BUN/CREATININE RATIO 32.06; CREATININE SERUM 2.9 mg/dL (0.6-1.4); GLOM FILT RATE Estimated 19.7 mL/min (>60); POTASSIUM 4.7 mmol/L (3.5-5.1)
[2017-06-07 05:46] LABS: INR 2.3; PROTHROMBIN TIME (PATIENT) 25.5 SECONDS (10.0-11.7)
[2017-06-07 05:54] LABS: BASOPHIL# 0.1 X10e3 (0-0.3); BASOPHIL% 0.9 % (0-2.5); EOSINOPHIL# 0.1 X10e3 (0-0.7); EOSINOPHIL% 1.1 % (0.0-7.0); HEMATOCRIT 24.7 % (35.0-45.0); HEMOGLOBIN 7.9 gm/dL (12.0-16.0); LYMPHOCYTE# 1.5 X10e3 (1.0-3.5); LYMPHOCYTE% 24.7 % (17.0-45.0); MEAN CORPUSCULAR HEMOGLOBIN 28.3 PG (28-34); MEAN CORPUSCULAR HGB CONC 32.1 g/dL (30-36); MEAN PLATELET VOLUME 9.6 FL (6.5-11.5); MONOCYTE# 0.7 X10e3 (0-1.0); MONOCYTE% 12.4 % (3.0-12.0); NEUTROPHIL# 3.7 X10e3 (1.5-7.1); NEUTROPHIL% 60.9 % (40-75); PLATELET COUNT 151 X10e3 (140-420); WHITE BLOOD COUNT 6.1 X10e3 (4.0-10.5)
[2017-06-07 06:06] LABS: DIFF IND YES
[2017-06-07 07:26] LABS: PLATELET ESTIMATE NORMAL (NORMAL)
[2017-06-07 07:27] LABS: ANISOCYTOSIS SL
[2017-06-07 10:20] LABS: BUN/CREATININE RATIO 32.75; CALCIUM SERUM 8.1 mg/dL (8.4-10.2); CREATININE SERUM 2.9 mg/dL (0.6-1.4); GLOM FILT RATE Estimated 19.7 mL/min (>60); POTASSIUM 5.2 mmol/L (3.5-5.1)
[2017-06-08 15:12] LABS: HEMATOCRIT 23.9 % (35.0-45.0); HEMOGLOBIN 7.6 gm/dL (12.0-16.0); MEAN CELL VOLUME 88.3 FL (83-96); MEAN CORPUSCULAR HEMOGLOBIN 28.3 PG (28-34); MEAN PLATELET VOLUME 8.1 FL (6.5-11.5); RED BLOOD COUNT 2.7 X10e (3.90-5.30); RED CELL DISTRIBUTION WIDTH 17.3 % (11.0-15.5); WHITE BLOOD COUNT 6.7 X10e3 (4.0-10.5)
[2017-06-08 15:20] LABS: INR 2.6
[2017-06-08 15:32] LABS: BUN/CREATININE RATIO 33.44; CREATININE SERUM 2.9 mg/dL (0.6-1.4); GLOM FILT RATE Estimated 19.7 mL/min (>60); POTASSIUM 5.3 mmol/L (3.5-5.1)
[2017-06-09 10:18] LABS: HEMATOCRIT 22.5 % (35.0-45.0); HEMOGLOBIN 7.1 gm/dL (12.0-16.0); MEAN CELL VOLUME 88.2 FL (83-96); MEAN CORPUSCULAR HEMOGLOBIN 27.8 PG (28-34); MEAN CORPUSCULAR HGB CONC 31.5 g/dL (30-36); MEAN PLATELET VOLUME 8.2 FL (6.5-11.5); RED BLOOD COUNT 2.55 X10e (3.90-5.30); RED CELL DISTRIBUTION WIDTH 17.3 % (11.0-15.5); WHITE BLOOD COUNT 6.3 X10e3 (4.0-10.5)
[2017-06-09 10:25] LABS: INR 2.8; PROTHROMBIN TIME (PATIENT) 30.9 SECONDS (10.0-11.7)
[2017-06-09 10:37] LABS: BUN/CREATININE RATIO 31.61; CALCIUM SERUM 8.1 mg/dL (8.4-10.2); CREATININE SERUM 3.1 mg/dL (0.6-1.4); GLOM FILT RATE Estimated 18.2 mL/min (>60); MAGNESIUM 1.8 mg/dL (1.6-3.0); PHOSPHOROUS 6.1 mg/dL (2.5-4.6)
[2017-06-09 10:40] LABS: POTASSIUM 5.5 mmol/L (3.5-5.1)
[2017-06-10 06:52] LABS: HEMATOCRIT 21.9 % (35.0-45.0); HEMOGLOBIN 7.1 gm/dL (12.0-16.0); MEAN CELL VOLUME 87.1 FL (83-96); MEAN CORPUSCULAR HEMOGLOBIN 28.3 PG (28-34); MEAN CORPUSCULAR HGB CONC 32.5 g/dL (30-36); MEAN PLATELET VOLUME 8.2 FL (6.5-11.5); RED BLOOD COUNT 2.52 X10e (3.90-5.30); RED CELL DISTRIBUTION WIDTH 16.6 % (11.0-15.5); WHITE BLOOD COUNT 5.8 X10e3 (4.0-10.5)
[2017-06-10 07:10] LABS: BUN/CREATININE RATIO 32.41; CALCIUM SERUM 8.3 mg/dL (8.4-10.2); CREATININE SERUM 2.9 mg/dL (0.6-1.4); GLOM FILT RATE Estimated 19.7 mL/min (>60); MAGNESIUM 1.9 mg/dL (1.6-3.0)
[2017-06-10 07:13] LABS: POTASSIUM 5.5 mmol/L (3.5-5.1)
[2017-06-10 20:21] LABS: URINE CREATININE 22.9 mg/dL
[2017-06-10 20:23] LABS: BODY SURFACE AREA 1.85
[2017-06-11 06:59] LABS: HEMATOCRIT 22.8 % (35.0-45.0); HEMOGLOBIN 7.3 gm/dL (12.0-16.0); MEAN CELL VOLUME 87.9 FL (83-96); MEAN CORPUSCULAR HGB CONC 31.9 g/dL (30-36); MEAN PLATELET VOLUME 8.6 FL (6.5-11.5); RED BLOOD COUNT 2.6 X10e (3.90-5.30); RED CELL DISTRIBUTION WIDTH 16.9 % (11.0-15.5); WHITE BLOOD COUNT 6.3 X10e3 (4.0-10.5)
[2017-06-11 08:33] LABS: ALBUMIN SERUM 2.7 g/dL (3.5-5.0); BILIRUBIN,TOTAL 0.2 mg/dL (0.2-2.0); BUN/CREATININE RATIO 33.33; CALCIUM SERUM 8.2 mg/dL (8.4-10.2); CREATININE SERUM 2.7 mg/dL (0.6-1.4); GLOM FILT RATE Estimated 21.5 mL/min (>60); PROTEIN TOTAL SERUM 6.3 g/dL (6.0-8.3)
[2017-06-11 09:49] LABS: INR 1.9; PROTHROMBIN TIME (PATIENT) 20.3 SECONDS (10.0-11.7)
[2017-06-11 19:07] LABS: HEMATOCRIT 25.3 % (35.0-45.0); HEMOGLOBIN 8.2 gm/dL (12.0-16.0)
[2017-06-12 05:57] LABS: HEMATOCRIT 23.5 % (35.0-45.0); HEMOGLOBIN 7.5 gm/dL (12.0-16.0); MEAN CELL VOLUME 87.2 FL (83-96); MEAN CORPUSCULAR HEMOGLOBIN 27.9 PG (28-34); MEAN PLATELET VOLUME 8.1 FL (6.5-11.5); RED BLOOD COUNT 2.7 X10e (3.90-5.30); RED CELL DISTRIBUTION WIDTH 16.5 % (11.0-15.5); WHITE BLOOD COUNT 5.7 X10e3 (4.0-10.5)
[2017-06-12 06:42] LABS: ALBUMIN SERUM 2.7 g/dL (3.5-5.0); BILIRUBIN,TOTAL 0.6 mg/dL (0.2-2.0); BUN/CREATININE RATIO 35.9; CREATININE SERUM 2.2 mg/dL (0.6-1.4); GLOM FILT RATE Estimated 27.5 mL/min (>60); POTASSIUM 3.8 mmol/L (3.5-5.1); PROTEIN TOTAL SERUM 6.4 g/dL (6.0-8.3)
[2017-06-13 06:38] LABS: HEMATOCRIT 23.4 % (35.0-45.0); HEMOGLOBIN 7.5 gm/dL (12.0-16.0); MEAN CELL VOLUME 87.4 FL (83-96); MEAN CORPUSCULAR HEMOGLOBIN 27.8 PG (28-34); MEAN CORPUSCULAR HGB CONC 31.8 g/dL (30-36); MEAN PLATELET VOLUME 8.3 FL (6.5-11.5); RED BLOOD COUNT 2.68 X10e (3.90-5.30); RED CELL DISTRIBUTION WIDTH 16.3 % (11.0-15.5); WHITE BLOOD COUNT 5.4 X10e3 (4.0-10.5)
[2017-06-13 07:39] LABS: ALBUMIN SERUM 2.8 g/dL (3.5-5.0); BILIRUBIN,TOTAL 0.3 mg/dL (0.2-2.0); BUN/CREATININE RATIO 26.42; CALCIUM SERUM 8.2 mg/dL (8.4-10.2); CREATININE SERUM 2.8 mg/dL (0.6-1.4); GLOM FILT RATE Estimated 20.6 mL/min (>60); POTASSIUM 4.1 mmol/L (3.5-5.1); PROTEIN TOTAL SERUM 5.9 g/dL (6.0-8.3)
[2017-06-13] MEDS ORDERED: PERCOCET7.5 PO (16:21)
[2017-06-13] MEDS ORDERED: CALCITRIOL0.25 MCG PO (16:22)
[2017-06-13] MEDS ORDERED: LASIX80 MG PO (16:22)
[2017-06-13] MEDS ORDERED: CATAPRES0.1 MG PO (16:23)
[2017-06-13] MEDS ORDERED: NORVASC PO (16:25)
[2017-06-13] MEDS ORDERED: FLORINEF0.1 MG PO (16:25)
[2017-06-13] MEDS ORDERED: MIRALAX17 GM PO (16:30)
[2017-06-13] MEDS ORDERED: HYDRALAZINE HC100 MG PO (16:33)
[2017-06-13] MEDS ORDERED: NOVOLOG100 U/ML SUBQ (16:36)
[2017-06-13] MEDS ORDERED: ALBUTEROL MININEB NEB (16:37)
[2017-06-14 03:14] LABS: PROTEIN/CREAT RATIO (UPE) 2017 (<=84); UPE ALPHA 1 6 % (()); UPE ALPHA 2 5 % (()); UPE BETA 8 % (()); UPE GAMMA 14 % (()); UPEALB (PNL) 67 % (()); UPETP24 (PNL) 2209 mg/24 h (<150); UPETV (PNL) 4700 mL (())
[2017-06-14 06:19] LABS: INR 1.2; PROTHROMBIN TIME (PATIENT) 13.4 SECONDS (10.0-11.7)
[2017-06-14 06:49] LABS: BUN/CREATININE RATIO 25.55; CALCIUM SERUM 8.3 mg/dL (8.4-10.2); CREATININE SERUM 2.7 mg/dL (0.6-1.4); GLOM FILT RATE Estimated 21.5 mL/min (>60); POTASSIUM 4.2 mmol/L (3.5-5.1)
== END 2017-06-14 20:28 | disposition home health service (06) | DRG 291 ==
LOC: CED 11:31 → C5C 14:30 → CEDOF 14:30 → CED 16:02 → CICCU3 17:25 → CEDOF 17:25 → CICCU3 17:25 → C5C 05-26 17:51
PROVIDERS: Emergency Medicine; Hospitalist; Internal Medicine; Internal Medicine Cardiovascular Disease; Internal Medicine Nephrology; Internal Medicine Pulmonary Disease; Physician Assistant Medical
PROC: 05H333Z Insertion of Infusion Device into Right Innominate Vein, Percutaneous Approach (ICD-10-PCS; 2017-05-30)
PROC: B54MZZA Ultrasonography of Right Upper Extremity Veins, Guidance (ICD-10-PCS; 2017-05-30)
PROC: 05H433Z Insertion of Infusion Device into Left Innominate Vein, Percutaneous Approach (ICD-10-PCS; 2017-06-08)
PROC: B54NZZA Ultrasonography of Left Upper Extremity Veins, Guidance (ICD-10-PCS; 2017-06-08)
PROC: 0DB68ZX Excision of Stomach, Via Natural or Artificial Opening Endoscopic, Diagnostic (ICD-10-PCS; 2017-06-11)
PROC: 0DBL8ZZ Excision of Transverse Colon, Via Natural or Artificial Opening Endoscopic (ICD-10-PCS; 2017-06-12)
PROC: 0DBK8ZX Excision of Ascending Colon, Via Natural or Artificial Opening Endoscopic, Diagnostic (ICD-10-PCS; principal; 2017-06-12 08:00)
DX: I13.0 Hypertensive heart and chronic kidney disease with heart failure and stage 1 through stage 4 chronic kidney disease, or unspecified chronic kidney disease (principal); I50.33 Acute on chronic diastolic (congestive) heart failure; J96.21 Acute and chronic respiratory failure with hypoxia; J18.9 Pneumonia, unspecified organism; N18.4 Chronic kidney disease, stage 4 (severe); E08.22 Diabetes mellitus due to underlying condition with diabetic chronic kidney disease; E11.649 Type 2 diabetes mellitus with hypoglycemia without coma; N17.9 Acute kidney failure, unspecified; I27.2 Other secondary pulmonary hypertension; J96.22 Acute and chronic respiratory failure with hypercapnia; J44.1 Chronic obstructive pulmonary disease with (acute) exacerbation; N04.9 Nephrotic syndrome with unspecified morphologic changes; I07.1 Rheumatic tricuspid insufficiency; F17.210 Nicotine dependence, cigarettes, uncomplicated; D50.9 Iron deficiency anemia, unspecified; G47.33 Obstructive sleep apnea (adult) (pediatric); Z99.81 Dependence on supplemental oxygen; H40.9 Unspecified glaucoma; E66.9 Obesity, unspecified; Z68.33 Body mass index [BMI] 33.0-33.9, adult; Z90.49 Acquired absence of other specified parts of digestive tract; Z88.1 Allergy status to other antibiotic agents; Z88.8 Allergy status to other drugs, medicaments and biological substances; D12.2 Benign neoplasm of ascending colon; K63.5 Polyp of colon; R80.9 Proteinuria, unspecified; E87.5 Hyperkalemia; K20.9 Esophagitis, unspecified; K44.9 Diaphragmatic hernia without obstruction or gangrene; K25.9 Gastric ulcer, unspecified as acute or chronic, without hemorrhage or perforation; Z86.711 Personal history of pulmonary embolism
CPT/HCPCS: 36415; 36430; 36600; 71010; 74176; 80048; 80053; 80076; 80307; 81003; 82274; 82308; 82553; 82570; 82575; 82728; 82803; 82947; 83010; 83540; 83550; 83605; 83615; 83735; 83880; 84100; 84132; 84156; 84165; 84484; 85014; 85018; 85025; 85027; 85044; 85610; 85730; 86617; 86850; 86900; 86901; 86923; 87040; 87070; 87086; 87205; 87449; 87899; 88305; 88312; 89190; 93005; 93882; 93975; 94640; 94660; 94760; 94761; 96365; 96366; 96367; 96375; 97110; 97116; 97163; 97165; 97530; 99285; G0480; G8978-GP; G8979-GP; G8987-GO; G8988-GO; G8989-GO; J0456; J0696; J0885; J1170; J1650; J1815; J1940; J2270; J2405; J2543; J2916; J2920; J2930; J2997; J3260; J3370; J3475; P9016